=== PATIENT | female | born 1940 | race Caucasian/White ===

== ENCOUNTER → 2017-10-09 12:28 | Outpatient (CLI) | payer MEDICARE, OTHER, SELFPAY ==
--- NOTE | 2017-10-09 12:35 | US_ITS ---
US extremity RT limited CLINICAL INDICATION: ITS.REASON: RT INGUINAL PAIN ORDERING PHYSICIAN: Zachary Paniagua MD PATIENT AGE: 77 years Comparison: None FINDINGS: No mass or abnormal fluid collection is evident in the right groin. There are a few lymph nodes is measuring up to 2.4 x 0.8 cm. IMPRESSION: Lymph nodes in the right inguinal area otherwise negative inguinal ultrasound
== END ==
PROVIDERS: Family Provider Family Medicine; PCP Family Medicine; Visit Provider Family Medicine
DX: R10.31 Right lower quadrant pain (principal)
CPT/HCPCS: 76882

== ENCOUNTER → 2018-11-10 11:28 | Outpatient (CLI) | payer MEDICARE, OTHER, SELFPAY ==
[2018-11-10 13:32] LABS: Blood Urea Nitrogen 23 mg/dL (7-18); Creatinine,Serum 0.77 mg/dL (0.55-1.02); Estimated Glomerular Filt Rate 72 ml/min (>60); GFR (African American) 87 ML/MIN (>60)
--- NOTE | 2018-11-10 13:59 | CT_ITS ---
CT abdomen pelvis w con CLINICAL INDICATION: Right lower quadrant pain ITS.REASON: RT SIDE ABD PAIN ORDERING PHYSICIAN: Alma Delia Johnson APRN PATIENT AGE: 78 years COMPARISON: None TECHNIQUE: Contrast Used:75ml Optiray 350 Oral Contrast: 20ml Gastroview Axial images obtained with sagittal and coronal reformats. All CT scans at the facility use one or more dose reduction, viz: automated exposure control, ma/kV adjustment per patient size (including targeted exams where dose is matched to indication, i.e. head), or iterative reconstruction technique. FINDINGS: Atelectatic or fibrotic changes are present in the left lung base. The liver, gallbladder, spleen, adrenal glands, and kidneys have an unremarkable appearance. There is pancreatic atrophy with fatty infiltration of the pancreas No intestinal obstruction or free air is evident. No evidence of appendicitis or diverticulitis. The appendix is not included delineated however, there are no secondary signs of appendicitis. There is diverticulosis of the descending and sigmoid colon. There has been a prior hysterectomy. No pelvic mass abnormal fluid collection or focal inflammatory changes pelvis. Diffuse degenerative changes are present in the thoracic and lumbar spine with mild lumbar scoliosis convex left. IMPRESSION: No acute abdominal or pelvic findings.
[2018-11-11 14:29] LABS: Basophils % 0.4 % (0.1-2.0); Eosinophils # 0.3 K/mm3 (0.0-0.4); Eosinophils % 4.4 % (0.1-12.0); Hematocrit 43.2 % (37.0-47.0); Hemoglobin 12.9 g/dL (12.2-16.2); Lymphocytes % 15.6 % (10-50); Mean Corpuscular HGB Conc 29.9 g/dL (31.8-35.4); Mean Corpuscular Hemoglobin 29.5 pg (27.0-31.2); Mean Corpuscular Volume 98.9 fl (81-99); Mean Platelet Volume 9.8 fl (7.4-10.4); Monocytes # 0.4 K/mm3 (0.1-1.0); Monocytes % 5.6 % (1.7-9.3); Neutrophils # 4.6 K/mm3 (1.8-7.8); Neutrophils % 73.9 % (37.0-80.0); Platelet Count 271 K/mm3 (142-424); Red Blood Count 4.36 M/mm3 (4.20-5.40); Red Cell Distribution Width 13.6 % (11.5-17.5); White Blood Count 6.2 K/mm3 (4.8-10.8)
[2018-11-11 15:26] LABS: Alanine Aminotransferase 29 U/L (12-78); Albumin Level 4.4 gm/dL (3.4-5.0); Albumin/Globulin Ratio 1.6 (1.1-1.8); Alkaline Phosphatase 99 U/L (46-116); Anion Gap 17.4 mEq/L (5-15); Aspartate Amino Transferase 20 U/L (15-37); Bilirubin,Total 0.6 mg/dL (0.2-1.0); Blood Urea Nitrogen 23 mg/dL (7-18); Calcium 10.5 mg/dL (8.5-10.1); Carbon Dioxide 27 mmol/L (21.0-32.0); Chloride 104 mmol/L (98-107); Creatinine,Serum 0.83 mg/dL (0.55-1.02); Estimated Glomerular Filt Rate 66 ml/min (>60); GFR (African American) 80 ML/MIN (>60); Globulin 2.8 gm/dl (1.3-3.2); Glucose 141 mg/dL (74-106); Potassium 4.4 mmoL/L (3.5-5.1); Sodium 144 mmol/L (136-145); Total Protein,Serum 7.2 gm/dL (6.4-8.2)
== END ==
PROVIDERS: PCP Family Medicine; Visit Provider Nurse Practitioner
DX: R10.9 Unspecified abdominal pain (principal)
CPT/HCPCS: 36415; 74177; 80053; 82565; 84520; 85025; Q9967

== ENCOUNTER → 2019-05-26 10:38 | Outpatient (CLI) | payer MEDICARE, OTHER, SELFPAY ==
--- NOTE | 2019-05-26 10:45 | XR_ITS ---
PROCEDURE: XR LUMBAR SPINE MIN 4V CLINICAL INDICATION: LBP WITH RT SCIATICA COMPARISON: ABDPELW CT abdomen pelvis w con from 11/10/2018 FINDINGS: Mild lumbar scoliosis convex left. There is a rotary component along the lower lumbar spine. There is reversal of the thoracolumbar lordosis. Multi level degenerative disc disease is present from T9-S1 anterior osteophytes noted at [id number] L1 and L2 with mild wedging T12-T11 and T10 which appears chronic the not significantly changed from prior CT scan of 11/10/2018. No acute fracture or dislocation is evident. There are facet arthritic changes from L2-S1 and there is generalized vascular calcification. IMPRESSION: 1. Scoliosis with chronic multilevel lower thoracic and lumbar spondylosis as described above with facet arthritic change. 2. No acute fracture Dictated by: Tommy Garcia MD 05/26/2019 14:53 Electronically signed by Tommy Garcia MD in [place] 05/26/2019 14:53
--- NOTE | 2019-05-26 10:45 | XR_ITS ---
PROCEDURE: XR KUB CLINICAL INDICATION: DYSURIA COMPARISON: ABDPELW CT abdomen pelvis w con from 11/10/2018 FINDINGS: Nonspecific nonobstructive bowel gas pattern with a mild amount of colonic feces in the right colon and rectal region. Lumbar scoliosis with degenerative changes. No obvious renal or ureteral calculi IMPRESSION: No acute findings. Dictated by: Tommy Garcia MD 05/26/2019 14:56 Electronically signed by Tommy Garcia MD in [facility] 05/26/2019 14:56
== END ==
PROVIDERS: PCP Family Medicine; Visit Provider Nurse Practitioner
DX: M54.41 Lumbago with sciatica, right side (principal); R30.0 Dysuria
CPT/HCPCS: 72110; 74018

== ENCOUNTER → 2019-11-02 10:59 | Outpatient (CLI) | payer MEDICARE, OTHER, SELFPAY ==
--- NOTE | 2019-11-02 11:36 | ECG_ITS ---
APPROVED REPORT Exam: Resting ECG HR:73 bpm ECG Measurements Heart Rate 73 AXES VA 232 P 42 QRSd 86 QRS -26 QT 366 T 59 QTc 403 <Conclusion> Sinus rhythm with 1st degree AV block Incomplete RBBB LAD Otherwise normal ECG Electronically signed by : Torrey Lewis, 11/02/2019 17:47:06
--- NOTE | 2019-11-02 11:47 | XR_ITS ---
PROCEDURE: XR CHEST 2V CLINICAL HISTORY: COVID TESTING Shortness of air, smoker, positivecovid test previously COMPARISON: CXR CHEST(2 VIEWS-NOT PORTABLE) from 12/10/2016 FINDINGS: Borderline cardiomegaly without failure. No lobar consolidation or collapse. There are minimal fibrotic change in left lung base. The remaining lungs are clear. Lumbar scoliosis convex left with degenerative changes of the lumbar spine IMPRESSION: No change with no acute finding Dictated by: Tommy Garcia MD 11/03/2019 16:42 Electronically signed by Tommy Garcia MD in [facility] 11/03/2019 16:42
[2019-11-02 11:56] LABS: Adenovirus,PCR Not Detected (NotDetected); Bordetella Pertussis Not Detected (NotDetected); Chlamydophila Pneumoniae, PCR Not Detected (NotDetected); Coronavirus 229E Not Detected (NotDetected); Coronavirus NL63 Not Detected (NotDetected); Coronavirus OC43 Not Detected (NotDetected); Coronovirus HKU1,PCR Not Detected (NotDetected); Human Metapneumovirus Not Detected (NotDetected); Influenza A, PCR Not Detected (NotDetected); Influenza AH1, 2009 Not Detected (NotDetected); Influenza AH1, PCR Not Detected (NotDetected); Influenza AH3,PCR Not Detected (NotDetected); Influenza B, PCR Not Detected (NotDetected); Mycoplasma Pneumoniae, PCR Not Detected (NotDetected); Parainfluenza 1, PCR Not Detected (NotDetected); Parainfluenza 2, PCR Not Detected (NotDetected); Parainfluenza 3, PCR Not Detected (NotDetected); Parainfluenza 4, PCR Not Detected (NotDetected); Respiratory Syncytial Virus Not Detected (NotDetected); Rhinovirus/Enterovirus Not Detected (NotDetected)
[2019-11-02 12:27] LABS: Basophils % 0.6 % (0.1-2.0); Eosinophils # 0.1 K/mm3 (0.0-0.4); Eosinophils % 2.2 % (0.1-12.0); Hematocrit 37.5 % (37.0-47.0); Hemoglobin 12.8 g/dL (12.2-16.2); Lymphocytes # 0.9 K/mm3 (0.7-4.5); Lymphocytes % 18.1 % (10-50); Mean Corpuscular HGB Conc 34.1 g/dL (31.8-35.4); Mean Corpuscular Volume 93.9 fl (81-99); Mean Platelet Volume 7.6 fl (7.4-10.4); Monocytes # 0.3 K/mm3 (0.1-1.0); Neutrophils # 3.5 K/mm3 (1.8-7.8); Neutrophils % 72.1 % (37.0-80.0); Platelet Count 250 K/mm3 (142-424); Red Cell Distribution Width 13.7 % (11.5-17.5); White Blood Count 4.9 K/mm3 (4.8-10.8)
== END ==
PROVIDERS: PCP Nurse Practitioner; Visit Provider Nurse Practitioner
DX: Z03.818 Encounter for observation for suspected exposure to other biological agents ruled out (principal)
CPT/HCPCS: 36415; 71046; 85025; 87486; 87581; 87633; 87798; 93005

== ENCOUNTER → 2019-12-28 10:08 | Outpatient (CLI) | payer MEDICARE, OTHER, SELFPAY ==
--- NOTE | 2019-12-28 10:20 | XR_ITS ---
PROCEDURE: XR CHEST PORTABLE CLINICAL HISTORY: COVID TESTING COMPARISON: CR CXR CHEST(2 VIEWS-NOT PORTABLE) from 12/10/2016 CR XR CHEST 2V from 11/02/2019 FINDINGS: The cardiomediastinal silhouette and pulmonary vascularity are within normal limits. The lungs are clear without infiltrates, suspicious nodules, or pleural effusions. There is minimal fibrotic change in the left lung base. Upper thoracic curvature convex left and lower thoracic curvature convex right IMPRESSION: No acute findings. Dictated by: Tommy Garcia MD 12/28/2019 10:51 Tommy Garcia MD in [facility] 12/28/2019 10:51
[2019-12-28 13:37] LABS: Basophils % 0.5 % (0.1-2.0); Eosinophils # 0.2 K/mm3 (0.0-0.4); Eosinophils % 3.9 % (0.1-12.0); Hematocrit 38.3 % (37.0-47.0); Hemoglobin 12.8 g/dL (12.2-16.2); Lymphocytes # 0.9 K/mm3 (0.7-4.5); Mean Corpuscular HGB Conc 33.5 g/dL (31.8-35.4); Mean Corpuscular Hemoglobin 32.5 pg (27.0-31.2); Mean Corpuscular Volume 97.3 fl (81-99); Mean Platelet Volume 8.2 fl (7.4-10.4); Monocytes # 0.3 K/mm3 (0.1-1.0); Monocytes % 7.5 % (1.7-9.3); Neutrophils # 3.1 K/mm3 (1.8-7.8); Neutrophils % 68.2 % (37.0-80.0); Platelet Count 265 K/mm3 (142-424); Red Blood Count 3.94 M/mm3 (4.20-5.40); Red Cell Distribution Width 13.6 % (11.5-17.5); White Blood Count 4.5 K/mm3 (4.8-10.8)
[2019-12-28 13:44] LABS: Alanine Aminotransferase 19 U/L (12-78); Albumin Level 4.5 g/dl (3.5-5.0); Albumin/Globulin Ratio 1.8 (1.1-1.8); Alkaline Phosphatase 77 U/L (38-126); Aspartate Amino Transferase 35 U/L (14-36); Bilirubin,Total 0.8 mg/dl (0.2-1.3); Blood Urea Nitrogen 19 mg/dl (7-17); Calcium 10.2 mg/dl (8.4-10.2); Carbon Dioxide 29 mmol/L (22.0-30.0); Chloride 101 mmol/L (98-107); Estimated Glomerular Filt Rate 80 ml/min (>60); GFR (African American) 97 ML/MIN (>60); Globulin 2.5 g/dL (1.3-3.2); Glucose 145 mg/dl (74-100); Sodium 139 mmol/L (136-145)
[2019-12-29 13:17] LABS: Covid-19 Nasal PCR Sendout Lex Not Detected
== END ==
PROVIDERS: PCP Family Medicine; Visit Provider Nurse Practitioner
DX: Z03.818 Encounter for observation for suspected exposure to other biological agents ruled out (principal)
CPT/HCPCS: 36415; 71045; 80053; 85025; 93225; 93226; U0004

== ENCOUNTER → 2020-01-29 12:49 | Outpatient (CLI) | payer MEDICARE, OTHER, SELFPAY ==
[2020-01-29 13:36] LABS: Basophils % 0.3 % (0.1-2.0); Eosinophils # 0.2 K/mm3 (0.0-0.4); Hematocrit 39.3 % (37.0-47.0); Hemoglobin 13.1 g/dL (12.2-16.2); Lymphocytes # 1.2 K/mm3 (0.7-4.5); Lymphocytes % 21.6 % (10-50); Mean Corpuscular HGB Conc 33.4 g/dL (31.8-35.4); Mean Corpuscular Hemoglobin 32.2 pg (27.0-31.2); Mean Corpuscular Volume 96.2 fl (81-99); Mean Platelet Volume 7.3 fl (7.4-10.4); Monocytes # 0.5 K/mm3 (0.1-1.0); Monocytes % 7.9 % (1.7-9.3); Neutrophils # 3.8 K/mm3 (1.8-7.8); Neutrophils % 67.1 % (37.0-80.0); Platelet Count 290 K/mm3 (142-424); Red Blood Count 4.09 M/mm3 (4.20-5.40); Red Cell Distribution Width 13.5 % (11.5-17.5); White Blood Count 5.7 K/mm3 (4.8-10.8)
[2020-01-29 14:24] LABS: Strep Scrn Group A (Rapid) Negative (Negative)
== END ==
PROVIDERS: PCP Nurse Practitioner; Visit Provider Nurse Practitioner
DX: Z03.818 Encounter for observation for suspected exposure to other biological agents ruled out (principal)
CPT/HCPCS: 36415; 85025; 87430; U0003

== ENCOUNTER 2020-07-08 11:32 | Emergency (ER) | payer MEDICARE, OTHER, SELFPAY ==
[2020-07-08 11:34] VITALS: BP 199/96; PULSE 81; RESP 15; TEMP 36.5; O2SAT 96; BMI 34.0
--- NOTE | 2020-07-08 11:40 | ECG_ITS ---
APPROVED REPORT Exam: Resting ECG HR:82 bpm ECG Measurements Heart Rate 82 AXES ND 256 P 36 QRSd 92 QRS -14 QT 358 T 78 QTc 418 Conclusion Sinus rhythm with 1st degree AV block ST abnormality, unchanged since 10/2019 Abnormal ECG Electronically signed by : Ayden Rubio, 07/09/2020 16:31:47
--- NOTE | 2020-07-08 11:48 | HMH.EDGENADL ---
ED Disposition Clinical Impression: Chest pain, precordial, Elevated troponin Disposition: Xfer Short-Term Hosp Condition on Discharge: Fair Referrals: Fadi Christy MD [Primary Care Provider] - Forms: Transfer Record - ED - Critical Care Critical Care Time: No Attestation: On 07/08/20, the high probability of a clinically significant, sudden or life threatening deterioration of the following system(s) required my full and direct attention, intervention and personal management. The time I documented below is in addition to time spent performing reported procedures but includes the following listed in this critical care notation. Medical Decision Making - Medical Records Medical records reviewed: Yes: I reviewed the patient's medical records. MR Comment: Prior Holter monitor result reviewed. See below. - Olu Inquiry Pt receiving controlled substance: No Vital Signs: 07/08/20 11:34 07/08/20 13:04 07/08/20 14:30 Temperature 97.7 F Temperature Source Oral Pulse Rate Pulse Rate [Left Radial] 81 83 66 Respiratory Rate 15 14 Blood Pressure Blood Pressure [Right Arm] 199/96 H 176/112 H 188/96 H Blood Pressure Mean [Right Arm] 130 133 126 Blood Pressure Source [Right Arm] Automatic Cuff Automatic Cuff Blood Pressure Position Blood Pressure Position [Right Arm] Sitting Sitting 02 Sat by Pulse Oximetry 96 97 Oxygen Delivery Method Room Air Room Air 07/08/20 15:15 07/08/20 15:17 Temperature 97.7 F Temperature Source Pulse Rate 66 Pulse Rate [Left Radial] Respiratory Rate 14 Blood Pressure 188/96 H Blood Pressure [Right Arm] 175/94 H Blood Pressure Mean [Right Arm] 121 Blood Pressure Source [Right Arm] Automatic Cuff Blood Pressure Position Sitting Blood Pressure Position [Right Arm] Sitting 02 Sat by Pulse Oximetry Oxygen Delivery Method Room Air - Lab Data Lab Results 07/08/20 11:45: WBC 6.6, RBC 4.11 L, Hgb 12.8, Hct 39.2, MCV 95.5, MCH 31.0, MCHC 32.5, RDW 13.4, Plt Count 240, MPV 7.7, Neut % (Auto) 81.9 H, Lymph % (Auto) 11.1, Owsley % (Auto) 4.5, Eos % (Auto) 2.0, Baso % (Auto) 0.4, Neut # (Auto) 5.4, Lymph # (Auto) 0.7, Owsley # (Auto) 0.3, Eos # (Auto) 0.1, Baso # (Auto) 0.0 07/08/20 11:45: Sodium 141, Potassium 4.2, Chloride 105, Carbon Dioxide 25, Anion Gap 15.2 H, BUN 19 H, Creatinine 0.70, Estimated Creat Clear 59, Estimated GFR 80, Est GFR ( Amer) 97, Glucose 200 H, Calcium 10.4 H, Total Bilirubin 0.5, AST 28, ALT 20, Alkaline Phosphatase 68, Troponin I 0.13 H, NT-Pro-B Natriuret Pep 302, Total Protein 7.6, Albumin 4.8, Globulin 2.8, Albumin/Globulin Ratio 1.7 07/08/20 14:45: Troponin I 0.44 H Result diagrams: 07/08/20 11:45 07/08/20 11:45 Orders (Tests/Meds): ED MEDICATIONS Discontinued Medications Generic Name Dose Route Start Last Admin Trade Name Freq PRN Reason Stop Dose Admin Aspirin 243 mg 07/08/20 12:55 07/08/20 13:00 Aspirin 81mg Chewable Tablet PO 07/08/20 12:56 243 mg ONCE ONE Administration Nitroglycerin 1 gm 07/08/20 13:00 07/08/20 13:00 Nitroglycerin 1 Gm Ointment TD 08/07/20 12:59 1 gm Q6H TRACY Administration - Radiology Data #1 Image(s): Chest Image Reviewed: Yes I reviewed the patient's radiology image, Yes I have reviewed radiologist's interpretation Preliminary Findings: Normal/NAD - ECG Data Tracing #1 EKG interpreted by Franki Link MD: Rhythm: sinus Rate: 82 Ord: normal Ectopy: none Conduction: First-degree AV block ST Segment Changes: none T Wave Changes: none Q Waves: none No evidence of acute ischemia or injury Prior electrocardiagrams reviewed. No change from prior tracings. - Physician Consults Physician Consulted: Dr. Salgado - hospitalist at [facility] Time: 14:49 Reason -: Transfer to another facilty Comment/Response: accepts patient - PARIS Score for Non-Stemi Age of Patient: 80-89 years old Heart Rate: 70-89 bpm Systolic Blood P
--- NOTE | 2020-07-08 11:54 | XR_ITS ---
PROCEDURE: XR CHEST 2V CLINICAL HISTORY: soa Shortness of air COMPARISON: CR CXR CHEST(2 VIEWS-NOT PORTABLE) from 12/10/2016 CR XR CHEST 2V from 11/02/2019 CR XR CHEST PORTABLE from 12/28/2019 FINDINGS: The cardiomediastinal silhouette and pulmonary vascularity are within normal limits. The lungs are clear without infiltrates, suspicious nodules, or pleural effusions. Dextroscoliosis and kyphosis of the thoracic spine. Mild chronic wedging T12 and T11 IMPRESSION: No acute findings. Dictated by: Tommy Garcia MD 07/08/2020 13:03 Tommy Garcia MD in [place] 07/08/2020 13:03
[2020-07-08 12:03] LABS: Basophils % 0.4 % (0.1-2.0); Eosinophils # 0.1 K/mm3 (0.0-0.4); Hematocrit 39.2 % (37.0-47.0); Hemoglobin 12.8 g/dL (12.2-16.2); Lymphocytes # 0.7 K/mm3 (0.7-4.5); Lymphocytes % 11.1 % (10-50); Mean Corpuscular HGB Conc 32.5 g/dL (31.8-35.4); Mean Corpuscular Volume 95.5 fl (81-99); Mean Platelet Volume 7.7 fl (7.4-10.4); Monocytes # 0.3 K/mm3 (0.1-1.0); Monocytes % 4.5 % (1.7-9.3); Neutrophils # 5.4 K/mm3 (1.8-7.8); Neutrophils % 81.9 % (37.0-80.0); Platelet Count 240 K/mm3 (142-424); Red Blood Count 4.11 M/mm3 (4.20-5.40); Red Cell Distribution Width 13.4 % (11.5-17.5); White Blood Count 6.6 K/mm3 (4.8-10.8)
[2020-07-08 12:08] LABS: Alanine Aminotransferase 20 U/L (12-78); Albumin Level 4.8 g/dl (3.5-5.0); Albumin/Globulin Ratio 1.7 (1.1-1.8); Alkaline Phosphatase 68 U/L (38-126); Anion Gap 15.2 mEq/L (5-15); Aspartate Amino Transferase 28 U/L (14-36); Bilirubin,Total 0.5 mg/dl (0.2-1.3); Blood Urea Nitrogen 19 mg/dl (7-17); Calcium 10.4 mg/dl (8.4-10.2); Carbon Dioxide 25 mmol/L (22.0-30.0); Chloride 105 mmol/L (98-107); Creatinine Clearance Estimated 59 mL/min (50-200); Estimated Glomerular Filt Rate 80 ml/min (>60); GFR (African American) 97 ML/MIN (>60); Globulin 2.8 g/dL (1.3-3.2); Glucose 200 mg/dl (74-100); Potassium 4.2 mmoL/L (3.5-5.1); Sodium 141 mmol/L (136-145); Total Protein,Serum 7.6 g/dl (6.3-8.2)
[2020-07-08 12:20] LABS: NT Pro Brain Natriuretic Pep. 302 pg/mL (0-450); Troponin I 0.13 ng/ml (0.00-0.034)
--- NOTE | 2020-07-08 12:20 | PC.NURSE ---
technical manager called me into pt room, pt had an episode she would not speak felt strange, pt said she had this feeling come over her, and she felt limp and couldnt speak, lead radiologic technologist said it didnt last long. pt hooked up to monitor and bp checked pt given call light in case she felt odd agaain.
[2020-07-08 13:04] VITALS: BP 176/112; PULSE 83
--- NOTE | 2020-07-08 13:33 | PC.NURSE ---
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
[2020-07-08 14:30] VITALS: BP 188/96; PULSE 66; RESP 14; O2SAT 97
--- NOTE | 2020-07-08 14:38 | PC.NURSE ---
spoke with logistic transfer they ar to see where they can place pt and give us a call back.
--- NOTE | 2020-07-08 14:47 | PC.NURSE ---
Dr Link speaking with hospitalist from [facility].
[2020-07-08 15:14] LABS: Troponin I 0.44 ng/ml (0.00-0.034)
[2020-07-08 15:15] VITALS: BP 188/96; PULSE 66; RESP 14; TEMP 36.5; O2SAT 97
--- NOTE | 2020-07-08 15:15 | PC.NURSE ---
wayne here to get pt
[2020-07-08 15:17] VITALS: BP 175/94
--- NOTE | 2020-07-08 15:30 | PC.NURSE ---
Report given to Becca Bhagat RN at [place]
== END 2020-07-08 15:20 | disposition short-term general hospital (02) ==
PROVIDERS: Emergency Provider Emergency Medicine; PCP Family Medicine
DX: Z20.822 Contact with and (suspected) exposure to COVID-19 (principal); R07.2 Precordial pain; I48.91 Unspecified atrial fibrillation; E11.9 Type 2 diabetes mellitus without complications; Z88.5 Allergy status to narcotic agent; Z79.899 Other long term (current) drug therapy
CPT/HCPCS: 71046; 80053; 83880; 84484; 85025; 93005; 99284; U0003

== ENCOUNTER → 2021-02-22 12:02 | Outpatient (CLI) | payer MEDICARE, OTHER, SELFPAY ==
[2021-02-22 13:09] LABS: Adenovirus,PCR Not Detected (NotDetected); Bordetella Pertussis Not Detected (NotDetected); Chlamydophila Pneumoniae, PCR Not Detected (NotDetected); Coronavirus 19, PCR Not Detected (NotDetected); Coronavirus 229E Not Detected (NotDetected); Coronavirus NL63 Not Detected (NotDetected); Coronavirus OC43 Not Detected (NotDetected); Coronovirus HKU1,PCR Not Detected (NotDetected); Human Metapneumovirus Not Detected (NotDetected); Influenza A, PCR Not Detected (NotDetected); Influenza AH1, 2009 Not Detected (NotDetected); Influenza AH1, PCR Not Detected (NotDetected); Influenza AH3,PCR Not Detected (NotDetected); Influenza B, PCR Not Detected (NotDetected); Mycoplasma Pneumoniae, PCR Not Detected (NotDetected); Parainfluenza 1, PCR Not Detected (NotDetected); Parainfluenza 2, PCR Not Detected (NotDetected); Parainfluenza 3, PCR Not Detected (NotDetected); Parainfluenza 4, PCR Not Detected (NotDetected); Respiratory Syncytial Virus Not Detected (NotDetected); Rhinovirus/Enterovirus Not Detected (NotDetected)
[2021-02-22 13:14] LABS: Basophils % 0.6 % (0.1-2.0); Eosinophils # 0.1 K/mm3 (0.0-0.4); Eosinophils % 2.3 % (0.1-12.0); Hematocrit 40.6 % (37.0-47.0); Hemoglobin 12.5 g/dL (12.2-16.2); Lymphocytes # 0.8 K/mm3 (0.7-4.5); Lymphocytes % 15.1 % (10-50); Mean Corpuscular HGB Conc 30.9 g/dL (31.8-35.4); Mean Corpuscular Hemoglobin 30.9 pg (27.0-31.2); Mean Platelet Volume 7.6 fl (7.4-10.4); Monocytes # 0.5 K/mm3 (0.1-1.0); Monocytes % 9.8 % (1.7-9.3); Neutrophils # 3.7 K/mm3 (1.8-7.8); Neutrophils % 72.2 % (37.0-80.0); Platelet Count 286 K/mm3 (142-424); Red Blood Count 4.06 M/mm3 (4.20-5.40); White Blood Count 5.1 K/mm3 (4.8-10.8)
[2021-02-22 19:06] LABS: Strep Scrn Group A (Rapid) Negative (Negative)
== END ==
PROVIDERS: PCP Nurse Practitioner; Visit Provider Nurse Practitioner
DX: Z20.822 Contact with and (suspected) exposure to COVID-19 (principal)
CPT/HCPCS: 36415; 85025; 87430; 87581; 87632; 87798; C9803; U0003; U0005

== ENCOUNTER 2021-08-22 22:11 | Emergency (ER) | payer MEDICARE, OTHER, SELFPAY ==
[2021-08-22 22:13] VITALS: BP 156/77; PULSE 65; RESP 18; TEMP 36.7; O2SAT 97; BMI 31.1
--- NOTE | 2021-08-22 22:22 | XR_ITS ---
PROCEDURE INFORMATION: Exam: XR Right Hip Exam date and time: 08/22/2021 10:40 PM Age: 80 years old Clinical indication: Hip pain; Right hip; Additional info: Fall TECHNIQUE: Imaging protocol: XR Right hip. Views: 2 or 3 views hip with pelvis when performed. COMPARISON: ABDPELW CT abdomen pelvis w con 11/10/2018 2:15 PM FINDINGS: Bones/joints: Unremarkable. No acute fracture. Soft tissues: Unremarkable. IMPRESSION: No acute findings.
--- NOTE | 2021-08-22 22:47 | PC.NURSE ---
Pt gone to RAD
--- NOTE | 2021-08-22 22:52 | XR_ITS ---
PROCEDURE INFORMATION: Exam: XR Right Tibia and Fibula Exam date and time: 08/22/2021 10:46 PM Age: 80 years old Clinical indication: Pain; Patient HX: Per patient, HX of multiple fractures to right lower leg; Additional info: Fall TECHNIQUE: Imaging protocol: XR Right tibia and fibula. Views: 2 views. COMPARISON: EXTRL US extremity RT limited 10/09/2017 12:56 PM FINDINGS: Bones/joints: Tricompartmental joint space narrowing and osteophyte formation about the knee joint. No acute fracture or dislocation. Soft tissues: Normal. IMPRESSION: No acute findings.
--- NOTE | 2021-08-22 23:01 | PC.NURSE ---
Pt back from RAD
--- NOTE | 2021-08-22 23:24 | HMH.EDFALL ---
ED Disposition Clinical Impression: Contusion of hip, right Qualifiers: Encounter type: initial encounter Qualified Code(s): S70.01XA - Contusion of right hip, initial encounter Lower leg injury Qualifiers: Encounter type: initial encounter Laterality: right Qualified Code(s): S89.91XA - Unspecified injury of right lower leg, initial encounter Disposition: Home, Self-Care Condition on Discharge: Good Instructions: DI for Hip Pain Additional Instructions: see pcp for follow up Referrals: Fadi Christy MD [Primary Care Provider] - - Critical Care Critical Care Time: No Attestation: On 08/22/21, the high probability of a clinically significant, sudden or life threatening deterioration of the following system(s) required my full and direct attention, intervention and personal management. The time I documented below is in addition to time spent performing reported procedures but includes the following listed in this critical care notation. Medical Decision Making - Medical Records Medical records reviewed: Yes: I reviewed the patient's medical records. - Olu Inquiry Pt receiving controlled substance: No Vital Signs: 08/22/21 22:13 Temperature 98.1 F Temperature Source Oral Pulse Rate [Right] 65 Respiratory Rate 18 Blood Pressure [Right Arm] 156/77 H Blood Pressure Mean [Right Arm] 103 02 Sat by Pulse Oximetry 97 - Lab Data Lab results reviewed: Yes: I reviewed the patient's lab results. - Radiology Data #1 Image(s): Pelvis, Hip, Tib/Fib Image Reviewed: Yes I have reviewed radiologist's interpretation Preliminary Findings: No Fracture Seen Medical Decision Narrative: stable exam and neg xrays and will use tyenol as needed Fall HPI - General Chief Complaint: Fall Stated Complaint: AO 08/22@2200 fell from chair R hip Time Seen by Provider: 08/22/21 23:24 Mode of Arrival: Wheelchair Source of Information: Patient, Medical Record Limitations: No Limitations Description of Symptoms (Recalled from ER Triage Doc. by RN): pt states hit toe and fell and c/o rt hip pain. pt denies loc - History of Present Illness HPI Narrative: trip fall upstairs in husbands room with rt lower leg and rt hip pain complaint: fall Onset (ago): hour(s) Fall from: standing Fall witnessed: yes, by family Place fall occurred: other (pt room) Loss of consciousness: none Prolonged down time: no Context: tripped/slipped Location of injury - extremities: Right: thigh, lower leg Severity: moderate Associated symptoms (after fall): denies - Related Data Home Medications Medication Instructions Recorded Confirmed Acetaminophen [Tylenol 500mg 500 mg PO DAILY 07/08/20 07/08/20 tablet] Amlodipine Besylate [Amlodipine 10 mg PO DAILY 07/08/20 07/08/20 10mg Tab] Apixaban [Eliquis 5mg Tablet] 5 mg PO BID 07/08/20 07/08/20 Ascorbic Acid [Vitamin C] 1,000 mg PO DAILY 07/08/20 07/08/20 Aspirin 81 mg PO DAILY 07/08/20 07/08/20 Calcium Carbonate [Calcium] 600 mg PO DAILY 07/08/20 07/08/20 Docusate Sodium [Stool Softener] 100 mg PO DAILY 07/08/20 07/08/20 Ergocalciferol (Vitamin D2) 50 mcg PO DAILY 07/08/20 07/08/20 [Vitamin D2] Famotidine 10 mg PO DAILY 07/08/20 07/08/20 Furosemide [Furosemide 40MG tAB*] 40 mg PO DAILY 07/08/20 07/08/20 Lisinopril/Hydrochlorothiazide 1 each PO DAILY 07/08/20 07/08/20 [Lisinopril-Hctz 10-12.5 mg Tab] Metformin HCl [Fortamet] 500 mg PO DAILY 07/08/20 07/08/20 Metoprolol Succinate [Kapspargo 25 mg PO DAILY 07/08/20 07/08/20 Sprinkle] Multivit-Min/FA/Lycopen/Lutein 1 each PO DAILY 07/08/20 07/08/20 [Centrum Silver Tablet] Potassium Gluconate [Potassium] 99 mg PO DAILY 07/08/20 07/08/20 Simvastatin 10 mg PO DAILY 07/08/20 07/08/20 Allergies Allergy/AdvReac Type Severity Reaction Status Date / Time codeine Allergy Verified 07/08/20 11:53 [facility] History - Hepatitis A Screen Drug use history?: No High risk sexual behaviors?: No History of sexual
[2021-08-22 23:27] VITALS: BP 122/75; PULSE 78; RESP 17; TEMP 36.9; O2SAT 98
== END 2021-08-22 23:44 | disposition home or self-care (01) ==
PROVIDERS: Emergency Provider Emergency Medicine; PCP Family Medicine
DX: S89.91XA Unspecified injury of right lower leg, initial encounter (principal); M25.551 Pain in right hip; Z79.1 Long term (current) use of non-steroidal anti-inflammatories (NSAID); Z79.82 Long term (current) use of aspirin; Z79.84 Long term (current) use of oral hypoglycemic drugs; Z79.899 Other long term (current) drug therapy; Z88.5 Allergy status to narcotic agent; W18.09XA Striking against other object with subsequent fall, initial encounter
CPT/HCPCS: 73502; 73590; 99283

== ENCOUNTER → 2022-05-03 11:02 | Outpatient (CLI) | payer MEDICARE, SELFPAY ==
[2022-05-04 10:56] LABS: Hemoglobin A1C 6.2 % (4.0-6.0)
[2022-05-04 10:57] LABS: Thyroid Stimulating Hormone 0.78 uIU/mL (0.465-4.68)
[2022-05-04 16:02] LABS: Chol/HDL Ratio 2.3 (1-3.5); Cholesterol 135 mg/dl (140-200); HDL Cholesterol 60 mg/dl (40-60); Triglycerides 106 mg/dl (30-150); VLDL Cholesterol 21 mg/dL (0-40)
[2022-05-04 16:13] LABS: Direct LDL Cholesterol 33.74 mg/dL (100-129)
== END ==
PROVIDERS: PCP Nurse Practitioner; Visit Provider Nurse Practitioner
DX: I48.91 Unspecified atrial fibrillation; I50.9 Heart failure, unspecified; E11.9 Type 2 diabetes mellitus without complications; E78.5 Hyperlipidemia, unspecified; I11.0 Hypertensive heart disease with heart failure
CPT/HCPCS: 80061; 83036; 84443

== ENCOUNTER 2022-05-04 09:39 | Emergency (ER) | payer MEDICARE, SELFPAY ==
[2022-05-04 10:03] VITALS: BP 129/77; PULSE 91; RESP 18; TEMP 36.4; O2SAT 97; BMI 29.0
--- NOTE | 2022-05-04 10:20 | XR_ITS ---
FINAL REPORT CLINICAL HISTORY: f/u pleural effusions COMPARISON: None FINDINGS: The heart size is normal. The mediastinum is normal. There is no focal infiltrate or edema. There are no pleural effusions. There is no pneumothorax. There is no osseous abnormality. IMPRESSION: No acute cardiopulmonary process Reviewed, Interpreted and Dictated by Renetta Meza MD Transcribed by Freida Barton Authenticated and [facility]
--- NOTE | 2022-05-04 10:20 | CT_ITS ---
FINAL REPORT TECHNIQUE: After the administration of IV contrast, axial images through the abdomen and pelvis was performed by computed tomography. Oral contrast was given. This study was performed with techniques to keep radiation doses as low as reasonably achievable (ALARA). Individualized dose reduction techniques using automated exposure control or adjustment of mA and/or kV according to the patient's size were employed. CLINICAL HISTORY: rectal bleeding COMPARISON: 11/10/2018 FINDINGS: Abdomen: Lung bases are clear. Liver has an unremarkable CT appearance. The spleen, pancreas and adrenal glands are unremarkable. Kidneys show no mass or obstruction. The gallbladder is unremarkable. No bowel obstruction or fluid collection is seen. Pelvis: The appendix is not visualized, possibly removed at time of hysterectomy. There is moderate sigmoid diverticulosis. No fluid collection or adenopathy is seen. IMPRESSION: No acute findings. Reviewed, Interpreted and Dictated by Renetta Meza MD Transcribed by Chandni Garrido Authenticated and [facility]
--- NOTE | 2022-05-04 10:22 | HMH.EDGENADL ---
Discharge Plan Disposition Patient Disposition: Home, Self-Care Condition: Good Prescriptions Prescriptions: No Action lisinopril-hydrochlorothiazide 20-12.5 mg tablet 1 tab PO DAILY meclizine 25 mg tablet 25 mg PO TID amoxicillin-pot clavulanate 875-125 mg tablet 1 tab PO BID cholecalciferol (vitamin D3) 25 mcg (1,000 unit) tablet 25 mcg PO DAILY amlodipine 5 mg tablet 2.5 mg PO DAILY metoprolol succinate 25 mg tablet extended release 24 hr 25 mg PO DAILY metformin 500 mg tablet 500 mg PO DAILY Qty: 90 3RF sertraline 50 mg tablet 50 mg PO DAILY Qty: 30 2RF furosemide 40 MG tablet 40 mg PO DAILY ascorbic acid (vitamin C) 1,000 MG tablet 1,000 mg PO DAILY famotidine 10 MG tablet 10 mg PO DAILY simvastatin 10 MG tablet 10 mg PO DAILY acetaminophen 500 MG tablet 500 mg PO DAILY calcium carbonate 600 MG tablet 600 mg PO DAILY docusate sodium 100 MG capsule 100 mg PO DAILY aspirin 81 MG tablet,chewable 81 mg PO DAILY yyvibrig-qfi-TD-lycopen-lutein 1 EACH tablet 1 each PO DAILY potassium gluconate 99 MG tablet 99 mg PO DAILY apixaban 5 MG tablet 5 mg PO BID Referrals Follow up/Referrals: Fadi Christy MD [Primary Care Provider] - See instructions Activity Restrictions/Add. Instructions Additional Instructions/Restrictions: Do not take any blood pressure medication or diuretics today - Do not take amlodipine, furosemide, lisinopril-hydrochlorothiazide, or metoprolol today. Take your blood pressure this afternoon and tonight and tomorrow morning. Call Dr. Christy in his office tomorrow. Return to the emergency department for any worsening. Clinical Impressions Clinical Impression: Bright red stool Discharge ED Provider: Franki Link General Adult HPI General Chief complaint: Urogenital-Female Stated complaint: bleeding from rectum Time Seen by Provider: 05/04/22 10:08 History of Present Illness HPI narrative: Complains of rectal bleeding. States that during the night last night she had fecal incontinence, which she has never had before. She says it was dark and somewhat watery. This morning she had a large bowel movement that was filled with bright red blood, she thinks up to a couple of blood. She says that she has some abdominal growling last night and took a chewable antacid. No significant pain at present. No vomiting or hematemesis. No fever. No history of gastrointestinal bleeding. She is on Eliquis for atrial fibrillation. She takes low-dose aspirin daily. She is not on any other NSAIDs. She is a nondrinker. She has never had an EGD or colonoscopy. She says she was admitted on Saturday night and [facility], going there by ambulance for vertigo. She says she was also discovered to have fluid around the lungs, not in the lungs . Which sounds as if she had pleural effusions. She says that they gave her Lasix to get the fluid off. She was discharged on meclizine and an antibiotic for sinus infection. 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 Quinteros here. Related Data Home Medications Medication Instructions Recorded Confirmed acetaminophen 500 mg tablet 500 mg PO DAILY Supplement 07/08/20 05/03/22 apixaban 5 mg tablet 5 mg PO BID Blood thinner 07/08/20 05/03/22 ascorbic acid (vitamin C) 1,000 mg 1,000 mg PO DAILY Supplement 07/08/20 05/03/22 tablet aspirin 81 mg chewable tablet 81 mg PO DAILY Supplement 07/08/20 05/03/22 calcium carbonate 600 mg calcium 600 mg PO DAILY Supplement 07/08/20 05/03/22 (1,500 mg) tablet docusate sodium 100 mg capsule 100 mg PO DAILY constipation 07/08/20 05/03/22 famotidine 10 mg tablet 10 mg PO DAILY stomach 07/08/20 05/03/22 furosemide 40 mg tablet 40 mg PO DAILY Edema 07/08/20 05/03/22 ofsmubmn-mxb-jibmz acid 0.4 1 each PO DAILY Supp
[2022-05-04 10:30] VITALS: BP 109/69; PULSE 83; RESP 16; O2SAT 97
--- NOTE | 2022-05-04 10:35 | PC.NURSE ---
HORTENSIA mann @ [facility] for chest x-ray
[2022-05-04 10:46] LABS: Occult Blood,Stool Negative (Negative)
[2022-05-04 10:48] LABS: Alanine Aminotransferase 22 U/L (12-78); Albumin Level 4.7 g/dl (3.5-5.0); Albumin/Globulin Ratio 1.9 (1.1-1.8); Alkaline Phosphatase 84 U/L (38-126); Anion Gap 13.7 mEq/L (5-15); Aspartate Amino Transferase 33 U/L (14-36); Blood Urea Nitrogen 32 mg/dl (7-17); Calcium 9.8 mg/dl (8.4-10.2); Carbon Dioxide 28 mmol/L (22.0-30.0); Chloride 100 mmol/L (98-107); Creatinine Clearance Estimated 2 mL/min (50-200); Estimated Glomerular Filt Rate 60 ml/min (>60); GFR (African American) 72 ML/MIN (>60); Globulin 2.5 g/dL (1.3-3.2); Glucose 163 mg/dl (74-100); Potassium 3.7 mmoL/L (3.5-5.1); Sodium 138 mmol/L (136-145); Total Protein,Serum 7.2 g/dl (6.3-8.2)
[2022-05-04 10:52] LABS: Basophils % 0.7 % (0.1-2.0); Eosinophils # 0.2 K/mm3 (0.0-0.4); Eosinophils % 2.9 % (0.1-12.0); Hematocrit 42.7 % (37.0-47.0); Hemoglobin 13.6 g/dL (12.2-16.2); Lymphocytes # 0.8 K/mm3 (0.7-4.5); Lymphocytes % 12.3 % (10-50); Mean Corpuscular HGB Conc 31.8 g/dL (31.8-35.4); Mean Corpuscular Hemoglobin 30.4 pg (27.0-31.2); Mean Corpuscular Volume 95.4 fl (81-99); Mean Platelet Volume 8.4 fl (7.4-10.4); Monocytes # 0.4 K/mm3 (0.1-1.0); Monocytes % 6.1 % (1.7-9.3); Neutrophils # 4.8 K/mm3 (1.8-7.8); Platelet Count 320 K/mm3 (142-424); Red Blood Count 4.48 M/mm3 (4.20-5.40); Red Cell Distribution Width 13.7 % (11.5-17.5); White Blood Count 6.1 K/mm3 (4.8-10.8)
--- NOTE | 2022-05-04 10:53 | PC.NURSE ---
Patient going to CT via wheelchair
[2022-05-04 10:57] LABS: NT Pro Brain Natriuretic Pep. 409 pg/mL (0-450)
[2022-05-04 10:58] LABS: Activated Partial Thrombo Time 27.7 seconds (22.8-30.6); INR 1.05 (0.9-1.1); Prothrombin Time 11.3 seconds (10.1-12.5)
[2022-05-04 11:05] LABS: Troponin I < 0.01 ng/ml (0.00-0.034)
--- NOTE | 2022-05-04 11:18 | ECG_ITS ---
APPROVED REPORT Exam: Resting ECG HR:86 bpm ECG Measurements Heart Rate 86 AXES QRSd 100 QRS 45 QT 361 T -1 QTc 405 Conclusion ATRIAL FIBRILLATION LOW QRS VOLTAGE IN PRECORDIAL LEADS [QRS DEFLECTION < 1.0 mV IN CHEST LEADS] INCOMPLETE RIGHT BUNDLE BRANCH BLOCK [90+ ms QRS DURATION, TERMINAL R IN V1/V2, 40+ ms S IN I/aVL/V4/V5/V6] ABNORMAL RHYTHM ECG UNCONFIRMED REPORT Electronically signed by : Ayden Rubio MD 05/04/2022 21:13:02
[2022-05-04 11:29] LABS: Occult Blood,Stool Negative (Negative)
[2022-05-04 11:30] VITALS: BP 91/57; PULSE 89; RESP 16; O2SAT 98
--- NOTE | 2022-05-04 12:37 | PC.NURSE ---
on the phone with
[2022-05-04 14:47] VITALS: BP 101/67; PULSE 84; RESP 17; TEMP 36.6; O2SAT 99
== END 2022-05-04 14:49 | disposition home or self-care (01) ==
PROVIDERS: Emergency Provider Emergency Medicine; PCP Family Medicine
DX: K62.5 Hemorrhage of anus and rectum (principal); I48.91 Unspecified atrial fibrillation; Z79.01 Long term (current) use of anticoagulants; F32.A Depression, unspecified; F41.9 Anxiety disorder, unspecified; I25.10 Atherosclerotic heart disease of native coronary artery without angina pectoris; I11.0 Hypertensive heart disease with heart failure; E11.9 Type 2 diabetes mellitus without complications; I25.2 Old myocardial infarction; K21.9 Gastro-esophageal reflux disease without esophagitis; E78.5 Hyperlipidemia, unspecified; E55.9 Vitamin D deficiency, unspecified; D51.9 Vitamin B12 deficiency anemia, unspecified
CPT/HCPCS: 71045; 74177; 80053; 82272; 83880; 84484; 85025; 85610; 85730; 86850; 93005; 99285; G0328; Q9967

== ENCOUNTER → 2022-05-10 06:56 | Outpatient (CLI) | payer MEDICARE, SELFPAY ==
[2022-05-10 18:07] LABS: Basophils # 0.1 K/mm3 (0-0.2); Basophils % 1.8 % (0.1-2.0); Eosinophils # 0.2 K/mm3 (0.0-0.4); Eosinophils % 2.8 % (0.1-12.0); Hemoglobin 12.4 g/dL (12.2-16.2); Lymphocytes # 0.8 K/mm3 (0.7-4.5); Lymphocytes % 14.4 % (10-50); Mean Corpuscular HGB Conc 31.1 g/dL (31.8-35.4); Mean Corpuscular Hemoglobin 31.6 pg (27.0-31.2); Mean Corpuscular Volume 101.7 fl (81-99); Mean Platelet Volume 9.5 fl (7.4-10.4); Monocytes # 0.3 K/mm3 (0.1-1.0); Monocytes % 6.4 % (1.7-9.3); Neutrophils % 74.6 % (37.0-80.0); Platelet Count 319 K/mm3 (142-424); Red Blood Count 3.93 M/mm3 (4.20-5.40); Red Cell Distribution Width 14.1 % (11.5-17.5); White Blood Count 5.4 K/mm3 (4.8-10.8)
[2022-05-10 18:30] LABS: Alanine Aminotransferase 13 U/L (12-78); Albumin Level 4.6 g/dl (3.5-5.0); Albumin/Globulin Ratio 2.1 (1.1-1.8); Alkaline Phosphatase 87 U/L (38-126); Anion Gap 14.1 mEq/L (5-15); Aspartate Amino Transferase 25 U/L (14-36); Bilirubin,Total 0.6 mg/dl (0.2-1.3); Blood Urea Nitrogen 14 mg/dl (7-17); Calcium 9.6 mg/dl (8.4-10.2); Carbon Dioxide 26 mmol/L (22.0-30.0); Chloride 103 mmol/L (98-107); Estimated Glomerular Filt Rate 95 ml/min (>60); GFR (African American) 116 ML/MIN (>60); Globulin 2.2 g/dL (1.3-3.2); Glucose 101 mg/dl (74-100); Potassium 4.1 mmoL/L (3.5-5.1); Sodium 139 mmol/L (136-145); Total Protein,Serum 6.8 g/dl (6.3-8.2)
== END ==
PROVIDERS: PCP Nurse Practitioner; Visit Provider Nurse Practitioner
DX: K59.00 Constipation, unspecified (principal); K92.9 Disease of digestive system, unspecified; R03.1 Nonspecific low blood-pressure reading; R19.5 Other fecal abnormalities
CPT/HCPCS: 80053; 85025

== ENCOUNTER → 2022-09-25 10:55 | Outpatient (CLI) | payer MEDICARE, SELFPAY ==
[2022-09-25 18:49] LABS: Basophils % 0.4 % (0.1-2.0); Eosinophils # 0.1 K/mm3 (0.0-0.4); Eosinophils % 2.1 % (0.1-12.0); Hematocrit 41.4 % (37.0-47.0); Hemoglobin 12.9 g/dL (12.2-16.2); Lymphocytes # 0.7 K/mm3 (0.7-4.5); Lymphocytes % 17.6 % (10-50); Mean Corpuscular HGB Conc 31.2 g/dL (31.8-35.4); Mean Corpuscular Volume 96.2 fl (81-99); Mean Platelet Volume 9.5 fl (7.4-10.4); Monocytes # 0.4 K/mm3 (0.1-1.0); Neutrophils % 70.8 % (37.0-80.0); Platelet Count 312 K/mm3 (142-424); Red Cell Distribution Width 13.7 % (11.5-17.5); White Blood Count 4.2 K/mm3 (4.8-10.8)
[2022-09-25 18:50] LABS: Alanine Aminotransferase 15 U/L (12-78); Albumin Level 4.6 g/dl (3.5-5.0); Albumin/Globulin Ratio 2.3 (1.1-1.8); Alkaline Phosphatase 95 U/L (38-126); Anion Gap 16.1 mEq/L (5-15); Aspartate Amino Transferase 25 U/L (14-36); Bilirubin,Total 0.8 mg/dl (0.2-1.3); Blood Urea Nitrogen 20 mg/dl (7-17); Calcium 9.7 mg/dl (8.4-10.2); Carbon Dioxide 27 mmol/L (22.0-30.0); Chloride 99 mmol/L (98-107); Chol/HDL Ratio 1.5 (1-3.5); Cholesterol 128 mg/dl (140-200); Estimated Glomerular Filt Rate 95 ml/min (>60); GFR (African American) 115 ML/MIN (>60); Glucose 102 mg/dl (74-100); HDL Cholesterol 83 mg/dl (40-60); Potassium 4.1 mmoL/L (3.5-5.1); Sodium 138 mmol/L (136-145); Total Protein,Serum 6.6 g/dl (6.3-8.2); Triglycerides 77 mg/dl (30-150); VLDL Cholesterol 15 mg/dL (0-40)
[2022-09-25 19:01] LABS: Direct LDL Cholesterol 41.02 mg/dL (100-129)
[2022-09-25 19:10] LABS: Creatinine,Urine Random 55 mg/dL (Not Estab.)
[2022-09-25 19:14] LABS: Microalbumin/Creatinine Ratio 20.3
[2022-09-25 19:21] LABS: Thyroid Stimulating Hormone 0.45 uIU/mL (0.465-4.68)
[2022-09-25 19:30] LABS: Hemoglobin A1C 6.1 % (4.0-6.0)
== END ==
PROVIDERS: PCP Nurse Practitioner; Visit Provider Nurse Practitioner
DX: E11.9 Type 2 diabetes mellitus without complications (principal); E78.5 Hyperlipidemia, unspecified; I11.0 Hypertensive heart disease with heart failure; I48.91 Unspecified atrial fibrillation; I50.9 Heart failure, unspecified; R07.2 Precordial pain
CPT/HCPCS: 80053; 80061; 82043; 82570; 83036; 84443; 85025

== ENCOUNTER 2022-09-26 10:41 | Emergency (ER) | payer MEDICARE, SELFPAY ==
[2022-09-26 10:43] VITALS: BP 135/78; PULSE 91; RESP 18; TEMP 36.8; O2SAT 98; BMI 30.2
--- NOTE | 2022-09-26 10:56 | XR_ITS ---
FINAL REPORT CLINICAL HISTORY: pain FINDINGS: Right knee Three views were obtained. There is no acute fracture or dislocation. There is moderate medial compartment joint space narrowing and subchondral sclerosis. There are osteophytes along the undersurface of the patella. There is a bone deformity of the proximal tibial diaphysis. No soft tissue abnormality is identified. IMPRESSION: Moderate to advanced osteoarthritis of the knee. Reviewed, Interpreted and Dictated by Brock King MD Transcribed by Chandni Garrido Authenticated and [facility]
--- NOTE | 2022-09-26 10:56 | XR_ITS ---
FINAL REPORT CLINICAL HISTORY: pain FINDINGS: Right tibia fibula Two views were obtained. There is no acute fracture or dislocation. There is moderate to advanced osteoarthritis of the knee. There is mild bowing deformity of the proximal tibial diaphysis. No soft tissue abnormality is identified. IMPRESSION: Mild bowing deformity of the proximal tibial diaphysis, may be due to sequela of old trauma. Reviewed, Interpreted and Dictated by Brock King MD Transcribed by Chandni Garrido Authenticated and [facility]
--- NOTE | 2022-09-26 10:56 | XR_ITS ---
FINAL REPORT CLINICAL HISTORY: pain FINDINGS: Right ankle Three views were obtained. There is no acute fracture or dislocation. The joint spaces appear normal. There is a moderate plantar spur. There is soft tissue swelling over the medial malleolus. IMPRESSION: Soft tissue swelling without acute bony abnormality. Reviewed, Interpreted and Dictated by Brock King MD Transcribed by Chandni Garrido Authenticated and [facility]
--- NOTE | 2022-09-26 11:01 | EXP.UTC ---
Discharge Plan Disposition Patient Disposition: Home, Self-Care Condition: Good Prescriptions Prescriptions: No Action meclizine 25 mg tablet 25 mg PO TID cholecalciferol (vitamin D3) 25 mcg (1,000 unit) tablet 25 mcg PO DAILY amlodipine 5 mg tablet 2.5 mg PO DAILY metoprolol succinate 25 mg tablet extended release 24 hr 25 mg PO DAILY lisinopril 20 mg tablet 20 mg PO DAILY furosemide 20 mg tablet 20 mg PO DAILY Qty: 90 1RF metformin 500 mg tablet 500 mg PO DAILY Qty: 90 3RF sertraline 50 mg tablet See Rx Instructions .ROUTE .COMPLEX Qty: 90 1RF Dose Instruction: TAKE ONE TABLET BY MOUTH DAILY Rx Instructions: TAKE ONE TABLET BY MOUTH DAILY ascorbic acid (vitamin C) 1,000 MG tablet 1,000 mg PO DAILY famotidine 10 MG tablet 10 mg PO DAILY simvastatin 10 MG tablet 10 mg PO DAILY acetaminophen 500 MG tablet 500 mg PO DAILY calcium carbonate 600 MG tablet 600 mg PO DAILY docusate sodium 100 MG capsule 100 mg PO DAILY aspirin 81 MG tablet,chewable 81 mg PO DAILY pmdthuse-wzm-SD-lycopen-lutein 1 EACH tablet 1 each PO DAILY potassium gluconate 99 MG tablet 99 mg PO DAILY apixaban 5 MG tablet 5 mg PO BID Referrals Follow up/Referrals: Fadi Christy MD [Primary Care Provider] - See instructions Aston Valdivia DO [Staff Physician] - See instructions Activity Restrictions/Add. Instructions Additional Instructions/Restrictions: *weight bearing as tolerated use walker to get around *RICE, Rest the extremity, Ice 15-20 minutes 3-4 times daily, Compress- wear the sen wrap as discussed as much as possible to help reduce swelling and pain, Elevate the extremity when at rest *Sen wrap is for support and help control swelling, use it except in the shower. Be sure that is not to tight but not to loose either *Elevate when resting? *Ibuprofen 600 every 6-8 hours as needed for pain an inflammation if your doctor has said that you can take it if not take Tylenol. If need something more can take Tylenol in between doses of Ibuprofen to help Immediately follow up with your family doctor for new or worsening of symptoms, or no noticeable improvement over the next 3-5 days Follow up with your Family Doctor or Orthopedics if pain persist or no improvement Clinical Impressions Clinical Impression: Lower extremity pain Instructions Patient Instructions: Acetaminophen (Alternative Therapy), How To Perform RICE (Rest, Ice, Compress, Elevate), Ibuprofen Discharge ED Provider: Nicole Dorado [facility] General Stated complaint: RT leg pain Mode of Arrival: Ambulatory Source of Information: Patient Limitations: No Limitations Time Seen by Provider: 09/26/22 11:01 Description of Symptoms (Recalled from Triage Doc. by RN): Patient complaint of right leg pain that began approx 1 week ago. States she did fall about 1 week ago and injured her wrist. HEENT Symptoms (Recalled from RN notes): No Resp Symptoms (Recalled from RN notes): No Skin Symptoms (Recalled from RN notes): No MS Symptoms (Recalled from RN notes): Yes Functional Status (Recalled from RN notes): wnl History of Present Illness Provider Complaint: Patient states that she broke her right lower leg a few years back States that about a week and half ago she fell and hurt her wrist States that the wrist is doing better but she has been having pain in her right knee and lower leg States that at times feels like her knee may give out States that today it was still bothering her so she came in wanting to get some xrays to check it States no longer having pain in her wrist Related Data Home Medications Medication Instructions Recorded Confirmed acetaminophen 500 mg tablet 500 mg PO DAILY Supplement 07/08/20 05/10/22 apixaban 5 mg tablet 5 mg PO BID Blood thinner 07/08/20 05/10/22 ascorbic acid (vitamin C) 1,000 mg 1,000 mg PO DAILY Supplement
[2022-09-26 12:41] VITALS: BP 135/79; PULSE 91; RESP 18; TEMP 36.8; O2SAT 98
== END 2022-09-26 12:42 | disposition home or self-care (01) ==
PROVIDERS: Emergency Provider Nurse Practitioner; PCP Family Medicine
DX: M79.604 Pain in right leg (principal); M17.11 Unilateral primary osteoarthritis, right knee; E11.9 Type 2 diabetes mellitus without complications; I10 Essential (primary) hypertension; K21.9 Gastro-esophageal reflux disease without esophagitis; E78.5 Hyperlipidemia, unspecified; Z79.84 Long term (current) use of oral hypoglycemic drugs
CPT/HCPCS: 73562; 73590; 73610; 99204; 99212; G0463

== ENCOUNTER → 2022-12-12 12:29 | Outpatient (CLI) | payer MEDICARE, SELFPAY ==
--- NOTE | 2022-12-12 13:03 | CT_ITS ---
FINAL REPORT CLINICAL HISTORY: RLQ pain, right inguinal pain COMPARISON: 05/04/2022 FINDINGS: CT OF THE ABDOMEN AND PELVIS WITH CONTRAST Axial CT images of the abdomen and pelvis were obtained after the administration of IV contrast. Coronal reformatted images were also obtained and reviewed. This study was performed with techniques to keep radiation doses as low as reasonably achievable (ALARA). Individualized dose reduction techniques using automated exposure control or adjustment of mA and/or kV according to the patient's size were employed. There is motion artifact on many of the images decreasing sensitivity of this exam. Abdomen: Mild left base atelectasis or scarring.. The heart is normal in size. The liver has an unremarkable appearance, without evidence of mass or biliary ductal dilatation. The spleen is unremarkable. No adrenal mass is present. The pancreas has an unremarkable appearance. The kidneys are normal, without evidence of mass or hydronephrosis. The aorta is normal in caliber. There is no free fluid or adenopathy. No mass or abnormal fluid collection is seen. Pelvis: The appendix is not well-visualized. The urinary bladder is unremarkable. No inflammatory process is seen. There is no evidence of mass or adenopathy. There is no evidence of bowel obstruction. There is sigmoid diverticulosis. Post hysterectomy. IMPRESSION: Sigmoid diverticulosis. Mild left base atelectasis or scarring. Reviewed, Interpreted and Dictated by Carlos Alberto Lopes III, MD Transcribed by Freida Barton Authenticated and . [facility]
[2022-12-12 13:09] LABS: Basophils % 0.5 % (0.1-2.0); Eosinophils # 0.1 K/mm3 (0.0-0.4); Eosinophils % 3.2 % (0.1-12.0); Hematocrit 40.9 % (37.0-47.0); Hemoglobin 12.9 g/dL (12.2-16.2); Lymphocytes # 0.8 K/mm3 (0.7-4.5); Lymphocytes % 19.8 % (10-50); Mean Corpuscular HGB Conc 31.5 g/dL (31.8-35.4); Mean Corpuscular Volume 95.1 fl (81-99); Mean Platelet Volume 7.8 fl (7.4-10.4); Monocytes # 0.4 K/mm3 (0.1-1.0); Monocytes % 8.5 % (1.7-9.3); Neutrophils # 2.9 K/mm3 (1.8-7.8); Platelet Count 229 K/mm3 (142-424); Red Cell Distribution Width 13.8 % (11.5-17.5); White Blood Count 4.3 K/mm3 (4.8-10.8)
[2022-12-12 13:59] LABS: Chloride 104 mmol/L (98-107); Sodium 140 mmol/L (136-145)
[2022-12-12 14:00] LABS: Potassium 3.8 mmoL/L (3.5-5.1)
[2022-12-12 14:02] LABS: Alanine Aminotransferase 17 U/L (12-78); Albumin Level 4.3 g/dl (3.5-5.0); Albumin/Globulin Ratio 1.9 (1.1-1.8); Alkaline Phosphatase 100 U/L (38-126); Anion Gap 11.8 mEq/L (5-15); Aspartate Amino Transferase 24 U/L (14-36); Blood Urea Nitrogen 10 mg/dl (7-17); Calcium 10.5 mg/dl (8.4-10.2); Carbon Dioxide 28 mmol/L (22.0-30.0); Estimated Glomerular Filt Rate 95 ml/min (>60); GFR (African American) 115 ML/MIN (>60); Globulin 2.3 g/dL (1.3-3.2); Glucose 107 mg/dl (74-100); Total Protein,Serum 6.6 g/dl (6.3-8.2)
== END ==
PROVIDERS: PCP Nurse Practitioner; Visit Provider Nurse Practitioner
DX: R10.31 Right lower quadrant pain (principal); N30.01 Acute cystitis with hematuria
CPT/HCPCS: 36415; 74177; 80053; 85025; 87086; Q9967

== ENCOUNTER → 2022-12-21 11:33 | Outpatient (CLI) | payer MEDICARE, SELFPAY ==
--- NOTE | 2022-12-21 11:37 | XR_ITS ---
FINAL REPORT CLINICAL HISTORY: Right low back pain with radiculopathy right groin COMPARISON: 05/26/2019 FINDINGS: No fracture is identified. There is 35 degrees of scoliosis convex to the patient's left in the lumbar region. This is slightly progressed when compared to the prior films of 2019. There is minimal spondylolisthesis of L4 on L5 and advanced osteophyte formation. IMPRESSION: 35 degrees scoliosis convex to the patient's left, which has progressed since the prior films of 2019. Reviewed, Interpreted and Dictated by Brock King MD Transcribed by Jennifer Doty Authenticated and [facility]
== END ==
PROVIDERS: PCP Nurse Practitioner; Visit Provider Nurse Practitioner
DX: M53.3 Sacrococcygeal disorders, not elsewhere classified (principal); M54.41 Lumbago with sciatica, right side
CPT/HCPCS: 72100

== ENCOUNTER → 2023-01-02 23:50 | Outpatient (CLI) | payer MEDICARE, SELFPAY | PROVIDERS: PCP Nurse Practitioner; Visit Provider Nurse Practitioner | DX: R31.9 Hematuria, unspecified (principal) | CPT/HCPCS: 87086 ==

== ENCOUNTER 2023-12-23 14:11 | Outpatient (CLI) | payer MEDICARE, SELFPAY ==
--- NOTE | 2023-12-23 14:19 | XR_ITS ---
FINAL REPORT CLINICAL HISTORY: right knee pain COMPARISON: None FINDINGS: RIGHT KNEE 3 views of the right knee were obtained. There is no acute fracture or dislocation. There is marked medial compartment narrowing and varus angulation present. The varus angulation results in widening of the lateral compartment. There are osteophytes projecting from the posterior surface of the patella. Soft tissues are unremarkable. IMPRESSION: No acute bony abnormality. Severe degenerative change as described above. Reviewed, Interpreted and Dictated by Brock King MD Transcribed by Jennifer Doty Authenticated and . [facility]
--- NOTE | 2023-12-23 14:19 | XR_ITS ---
FINAL REPORT CLINICAL HISTORY: left knee pain COMPARISON: None FINDINGS: LEFT KNEE 3 views of the left knee were obtained. There is no acute fracture or dislocation. There is marked narrowing of the medial compartment with subchondral sclerosis present. There is widening of the lateral compartment. Posterior osteophytes project from the posterior aspect of the patella. Soft tissues are unremarkable. IMPRESSION: No acute bony abnormality. Severe degenerative change as described. Reviewed, Interpreted and Dictated by Brock King MD Transcribed by Jennifer Doty Authenticated and [facility]
== END 2023-12-23 23:59 | disposition home or self-care (01) ==
LOC: RAD 14:13
PROVIDERS: PCP Nurse Practitioner; Visit Provider Physician Assistant
DX: M25.561 Pain in right knee (principal); M25.562 Pain in left knee
CPT/HCPCS: 73562

== ENCOUNTER 2024-01-20 10:43 | Outpatient (CLI) | payer MEDICARE, SELFPAY ==
--- NOTE | 2024-01-20 10:48 | XR_ITS ---
FINAL REPORT CLINICAL HISTORY: LLL pneumonia, COVID COMPARISON: 05/04/2022 FINDINGS: No acute pulmonary density is evident. There is no evidence of effusion or other pleural disease. The mediastinum has a normal appearance. The cardiac silhouette is unremarkable. IMPRESSION: Unremarkable chest exam. Reviewed, Interpreted and Dictated by Renetta eMza MD Transcribed by Pita Patterson Authenticated and [facility]
== END 2024-01-20 23:59 | disposition home or self-care (01) ==
LOC: RAD 10:45
PROVIDERS: PCP Nurse Practitioner; Visit Provider Nurse Practitioner
DX: J18.9 Pneumonia, unspecified organism (principal); U07.1 COVID-19; R05.9 Cough, unspecified
CPT/HCPCS: 71046

== ENCOUNTER 2024-08-20 12:07 | Emergency (ER) | payer MEDICARE, SELFPAY ==
[2024-08-20] VITALS (7 sets, daily range): BP systolic 133–168; BP diastolic 79–113; PULSE 61–98; RESP 16–23; TEMP 36.8–37; O2SAT 95–99; BMI 29.2
--- NOTE | 2024-08-20 12:12 | ED_ITS ---
Discharge Plan Disposition Patient Disposition: Home, Self-Care Condition: Good Prescriptions Prescriptions: No Action cholecalciferol (vitamin D3) 25 mcg (1,000 unit) tablet 25 mcg PO DAILY furosemide 20 mg tablet 20 mg PO DAILY Qty: 90 1RF lisinopril 10 mg tablet 10 mg PO BID doxycycline hyclate 100 mg tablet 100 mg PO BID Qty: 20 0RF benzonatate 200 mg capsule 200 mg PO TID PRN (Reason: cough) Qty: 30 0RF amlodipine 2.5 mg tablet 2.5 mg PO DAILY Qty: 30 0RF dextromethorphan-guaifenesin 60-1,200 mg tablet extended release 12 hr 1 tab PO Q12H Qty: 60 0RF metformin 500 mg tablet 500 mg PO DAILY Qty: 90 3RF sertraline 50 mg tablet See Rx Instructions .ROUTE .COMPLEX Qty: 90 3RF Dose Instruction: TAKE ONE TABLET BY MOUTH DAILY Rx Instructions: TAKE ONE TABLET BY MOUTH DAILY ascorbic acid (vitamin C) 1,000 MG tablet 1,000 mg PO DAILY simvastatin 10 MG tablet 10 mg PO DAILY acetaminophen 500 MG tablet 500 mg PO DAILY calcium carbonate 600 MG tablet 600 mg PO DAILY aspirin 81 MG tablet,chewable 81 mg PO DAILY [id number]-YM-lycopen-lutein 1 EACH tablet 1 each PO DAILY apixaban 5 MG tablet 5 mg PO BID famotidine 10 mg tablet 10 mg PO DAILY PRN (Reason: stomach) Referrals Follow up/Referrals: Alma Delia Johnson APRN [Primary Care Provider] - See instructions Aston Valdivia DO [Staff Physician] - See instructions Activity Restrictions/Add. Instructions Additional Instructions/Restrictions: I have referred you to orthopedics because you have some fluid on your left knee however the remainder of your workup revealed no acute fracture. If you have continued new or worsening signs or symptoms follow-up with your PCP return to the ER as needed. Commend symptomatic treatment with Tylenol ice as necessary. Clinical Impressions Clinical Impression: Effusion of knee joint, left, Contusion of multiple sites Fall Qualifiers: Encounter type: initial encounter Qualified Code(s): W19.XXXA - Unspecified fall, initial encounter Print Language Print Language: Citizen Of [place] Discharge ED Provider: Bhupendra Santana General Adult HPI <TERESA Tate - Last Filed: 08/20/24 17:06> General Chief complaint: Fall Stated complaint: [id number]- Fall-pain and swelling legs and R foot Time Seen by Provider: 08/20/24 12:12 History of Present Illness HPI narrative: Patient presents for evaluation of a fall. Patient was working in her yard with her and slipped falling to the ground. She reports that she has right hip pain right knee pain right tibia-fibula pain left knee abrasion but denies head injury striking the ground loss of consciousness. She could not initially get up off the ground without assistance and hence called 911. Patient was eventually assisted into her house where she cleaned myself up and drove myself to the emergency department . She denies any headache fever chills hemoptysis hematochezia melena nausea vomiting diarrhea loss of motor or sensory any focal neurologic deficits. She is however on Eliquis aspirin Related Data Home Medications ?Medication ?Instructions ?Recorded ?Confirmed acetaminophen 500 mg tablet 500 mg PO DAILY Supplement 07/08/20 01/27/24 apixaban 5 mg tablet 5 mg PO BID Blood thinner 07/08/20 01/27/24 ascorbic acid (vitamin C) 1,000 mg 1,000 mg PO DAILY Supplement 07/08/20 01/27/24 tablet aspirin 81 mg chewable tablet 81 mg PO DAILY Supplement 07/08/20 01/27/24 calcium carbonate 600 mg PO DAILY Supplement 07/08/20 01/27/24 [id number]-dhu-zjmlj acid 0.4 1 each PO DAILY Supplement 07/08/20 01/27/24 mg-lycopene 300 mcg-lutein 250 mcg tablet simvastatin 10 mg tablet 10 mg PO DAILY Cholesterol 07/08/20 01/27/24 cholecalciferol (vitamin D3) 25 25 mcg PO DAILY 05/03/22 01/27/24 mcg (1,000 unit) tablet famotidine 10 mg tablet 10 mg PO DAILY PRN stomach 01/29/23 01/27/24 lisinopril 10 mg tablet 10 mg PO BID 01/29/23 01/27/24 Previous Rx's ?Medication ?Instructions ?Recorded furosemide 20 mg tablet 20 mg PO DAILY #90 tabs 09/25/22 amlodipine 2.5 mg tablet 2.5 mg PO DAILY #30 tabs 02/26/23 dextromethorphan-guaifenesin ER 60 1 tab PO Q12H #60 tabs 01/09/24 mg-1,200 mg tab,extend release,12hr benzonatate 200 mg capsule 200 mg PO TID PRN cough #30 caps 01/20/24 doxycycline hyclate 100 mg tablet 100 mg PO BID #20 tabs 01/20/24 metformin 500 mg tablet 500 mg PO DAILY #90 tabs 01/23/24 sertraline 50 mg tablet See Rx Instructions .Route 07/14/24 .COMPLEX #90 tabs Allergies Allergy/AdvReac Type Severity Reaction Status Date / Time codeine Allergy Verified 01/27/24 11:11 [facility] <TERESA Tate - Last Filed: 08/20/24 17:06> [facility] Disclaimer: The information contained in this section may have been updated after the patient was seen, as this information can be updated by other users. 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 Surgical History History of cardiac cath (~2020) History of eye surgery (~1994) History of heart artery stent (~2015) History of hysterectomy (~1974) Hx of appendectomy (~1950) Family History Other Heart attack Social History Smoking Status: Never smoker alcohol intake: never current occupational status: retired Travel in the last 8 weeks: None Have you lived/traveled outside US in past 30 days?: No Contact w/someone who lives/traveled outside US past 30 days?: No Exposure to someone with infectious disease in past 14 days?: No Do you have a fever (greater than 100.4 F or 38 C)?: No Have you tested positive for COVID-19: No Exposed to someone with COVID-19 in past 14 days?: No Do you have a sore throat?: No Do you have a cough?: No Do you have any weakness?: No Do you have any diarrhea?: No Are you experiencing any unusual bleeding?: No Do you have any muscle aches/pain?: No Do you have any abdominal pain?: No Are you experiencing loss of taste or smell?: No Other Medical History Have you received the Flu Vaccine for this season: Yes Have you received the Pneumonia Vaccine: Yes <TERESA Tate - Last Filed: 08/20/24 17:06> ROS Obtained: Yes Systems reviewed as appropriate & no additional complaints except as documented Physical Exam <TERESA Tate - Last Filed: 08/20/24 17:06> General General appearance: alert and in no apparent distress Respiratory Respiratory exam: Present normal lung sounds bilaterally Cardiovascular Cardiovascular exam: Present regular rate Neurological Exam Neurological exam: Present alert, oriented X3, CN II-XII intact and normal gait; Absent motor sensory deficit Medical Decision Making <TERESA Tate - Last Filed: 08/20/24 17:06> Medical Records Medical records reviewed: Yes I reviewed the patient's medical records. Screening: Per USPSTF and CDC recommendations, given the prevalence of disease in our region, it is our hospital?s policy to screen for HIV and viral Hepatitis for all patients aged 18 and over and those with ongoing risk factors. Olu Inquiry Pt receiving controlled substance: No Vital Signs: 08/20/24 12:15 08/20/24 12:21 08/20/24 12:30 Temperature 98.2 F Temperature Source Oral Pulse Rate 92 H 61 Pulse Rate [Left Radial] 86 Respiratory Rate 20 19 Blood Pressure 165/79 H 133/83 Blood Pressure [Right Arm] 165/79 H Blood Pressure Mean [Right Arm] 107 Blood Pressure Source Blood Pressure Position 02 Sat by Pulse Oximetry 97 97 95 Oxygen Delivery Method Room Air 08/20/24 13:58 08/20/24 14:00 08/20/24 14:17 Temperature Temperature Source Pulse Rate 98 H 89 92 H Pulse Rate [Left Radial] Respiratory Rate 16 23 16 Blood Pressure 145/95 H 162/90 H 168/113 H Blood Pressure [Right Arm] Blood Pressure Mean [Right Arm] Blood Pressure Source Blood Pressure Position 02 Sat by Pulse Oximetry 97 98 96 Oxygen Delivery Method 08/20/24 15:27 Temperature 98.6 F Temperature Source Oral Pulse Rate 66 Pulse Rate [Left Radial] Respiratory Rate 17 Blood Pressure 166/86 H Blood Pressure [Right Arm] Blood Pressure Mean [Right Arm] Blood Pressure Source Automatic Cuff Blood Pressure Position Supine 02 Sat by Pulse Oximetry Oxygen Delivery Method Room Air Lab Data Lab results reviewed: Yes I reviewed the patient's lab results. Lab Results 08/20/24 12:46: WBC 7.3, RBC 3.87 L, Hgb 11.8 L, Hct 36.6 L, MCV 94.6, MCH 30.5, MCHC 32.2, RDW 13.4, Plt Count 264, MPV 9.4, Neut % (Auto) 80.0, Lymph % (Auto) 7.5 L, [place] % (Auto) 10.5 H, Eos % (Auto) 1.2, Baso % (Auto) 0.4, Neut # (Auto) 5.9, Lymph # (Auto) 0.6 L, [place] # (Auto) 0.8, Eos # (Auto) 0.1, Baso # (Auto) 0.0, PT 11.2, INR 1.00, Sodium 139, Potassium 3.7, Chloride 103, Carbon Dioxide 26, Anion Gap 13.7, BUN 14, Creatinine 0.50 L, Estimated Creat Clear 44, Estimated GFR 117, Est GFR ( Amer) 142, Glucose 144 H, Calcium 9.7, Magnesium 1.8, Total Bilirubin 0.7, AST 26, ALT 19, Alkaline Phosphatase 75, Total Creatine Kinase 72, Total Protein 6.9, Albumin 4.4, Globulin 2.5, Albumin/Globulin Ratio 1.8 08/20/24 14:08: Urine Color Yellow, Urine Appearance Clear, Urine pH 6.0, Ur Specific [place] <= 1.005, Urine Protein Negative, Urine Glucose (UA) Negative, Urine Ketones Negative, Urine Blood Negative, Urine Nitrate Negative, Urine Bilirubin Negative, Urine Urobilinogen 0.2, Ur Leukocyte Esterase Trace, Urine RBC None, Urine WBC Occasional, Ur Squamous Epith Cells Occasional, Urine Bacteria Trace 08/20/24 12:46 08/20/24 12:46 Orders (Tests/Meds): ED MEDICATIONS Discontinued Medications Generic Name Dose Route Start Last Admin Trade Name Rebeca PRN Reason Stop Dose Admin Acetaminophen 1,000 mg 08/20/24 12:31 08/20/24 12:37 Acetaminophen 500mg Tab PO 08/20/24 12:32 1,000 mg ONCE ONE Administration ORDERS Category Date Time Status CT abdomen pelvis wo con Stat Cat Scan 08/20/24 12:[address] cervical spine wo con Stat Cat Scan 08/20/24 12:[address] chest wo con Stat Cat Scan 08/20/24 12:[address] head/brain wo con Stat Cat Scan 08/20/24 12:[address] lumbar spine wo con Stat Cat Scan 08/20/24 12:[address] thoracic spine wo con Stat Cat Scan 08/20/24 12:32 Completed Ankle XR -Right minimum 3 Views [XR ankle RT min 3V] Exams 08/20/24 12:31 Completed Stat Femur XR right 2 views [XR femur RT 2V] Stat Exams 08/20/24 12:31 Completed Knee XR left 3 views [XR knee LT 3V] Stat Exams 08/20/24 12:31 Completed Knee XR right 3 views [XR knee RT 3V] Stat Exams 08/20/24 12:31 Completed Tibia/fibula XR left 2 views [XR tibia fibula LT 2V] Exams 08/20/24 12:31 Completed Stat Tibia/fibula XR right 2 views [XR tibia fibula RT 2V] Exams 08/20/24 12:31 Completed Stat CBC w/Auto Diff [Complete Blood Count Auto Diff] Stat Lab 08/20/24 12:46 Completed CK [Creatine Kinase] Stat Lab 08/20/24 12:46 Completed CMP [Comprehensive Metabolic Panel] Stat Lab 08/20/24 12:46 Completed INR [Prothrombin Time INR] Stat Lab 08/20/24 12:46 Completed Magnesium Stat Lab 08/20/24 12:46 Completed UA [Urinalysis and Microscopic] Stat Lab 08/20/24 14:08 Completed Medical Decision Narrative: In summary patient is a 83-year-old female who presents to the emergency department for evaluation of ground-level fall. Patient is initially hypertensive at 165/79 heart rate 92 with normal sinus rhythm at a bedside monitor breathing 20 times a minute satting at 97% on room air upon arrival, afebrile at 98.2. Physical exam reveals that she has full range of motion of all 4 extremities however she has an abrasion to her left patella, she has ecchymosis midshaft tibia, she has tenderness at the right hip but no palpable bony deformities felt anywhere she has no cervical spine or dorsal spine tenderness. She has full range of motion of her C-spine. Wheelwright Coma Score 15 cranial nerves II through XII intact grossly to exam patient is awake alert and oriented person place and circumstance. Pupils equal round reactive to light. Breath sounds clear and equal bilaterally to the bases without evidence symptoms. There is no tenderness palpation of the anterior chest wall. Abdomen soft nontender no rebound or guarding no rigidity. Bowel sounds normal active. Patient is neurovascularly intact distally in all 4 extremities with strong peripheral pulses in all 4.. Differential diagnosis includes contusion versus fracture versus intracranial injury versus occult bleeding due to blood thinner use etc. Initial workup will be conducted with ED trauma scans and plain film x-rays of her injured extremities, hematologic labs urinalysis.. Initial interventions include Tylenol for now. Initial workup reviewed by me and patient's hematologic labs are nonactionable and my informal Tober Tatian of all her imaging reveals no acute traumatic injury or bony abnormality prior to radiology read. Please see final reads for formal interpretation.. Upon repeat evaluation patient reports improvement in her discomfort and is actually ambulatory in the ER with a Glascow coma score 15 tolerating oral intake. Given this patient is appropriate for discharge with referral to orthopedics for any ongoing management and close follow-up with PCP with strict return precautions to the ER as needed. <Bhupendra Santana MD - Last Filed: 08/21/24 07:22> Vital Signs: 08/20/24 12:15 08/20/24 12:21 08/20/24 12:30 Temperature 98.2 F Temperature Source Oral Pulse Rate 92 H 61 Pulse Rate [Left Radial] 86 Respiratory Rate 20 19 Blood Pressure 165/79 H 133/83 Blood Pressure [Right Arm] 165/79 H Blood Pressure Mean [Right Arm] 107 Blood Pressure Source Blood Pressure Position 02 Sat by Pulse Oximetry 97 97 95 Oxygen Delivery Method Room Air 08/20/24 13:58 08/20/24 14:00 08/20/24 14:17 Temperature Temperature Source Pulse Rate 98 H 89 92 H Pulse Rate [Left Radial] Respiratory Rate 16 23 16 Blood Pressure 145/95 H 162/90 H 168/113 H Blood Pressure [Right Arm] Blood Pressure Mean [Right Arm] Blood Pressure Source Blood Pressure Position 02 Sat by Pulse Oximetry 97 98 96 Oxygen Delivery Method 08/20/24 15:27 Temperature 98.6 F Temperature Source Oral Pulse Rate 66 Pulse Rate [Left Radial] Respiratory Rate 17 Blood Pressure 166/86 H Blood Pressure [Right Arm] Blood Pressure Mean [Right Arm] Blood Pressure Source Automatic Cuff Blood Pressure Position Supine 02 Sat by Pulse Oximetry Oxygen Delivery Method Room Air Lab Data Lab Results 08/20/24 12:46: WBC 7.3, RBC 3.87 L, Hgb 11.8 L, Hct 36.6 L, MCV 94.6, MCH 30.5, MCHC 32.2, RDW 13.4, Plt Count 264, MPV 9.4, Neut % (Auto) 80.0, Lymph % (Auto) 7.5 L, [place] % (Auto) 10.5 H, Eos % (Auto) 1.2, Baso % (Auto) 0.4, Neut # (Auto) 5.9, Lymph # (Auto) 0.6 L, [place] # (Auto) 0.8, Eos # (Auto) 0.1, Baso # (Auto) 0.0, PT 11.2, INR 1.00, Sodium 139, Potassium 3.7, Chloride 103, Carbon Dioxide 26, Anion Gap 13.7, BUN 14, Creatinine 0.50 L, Estimated Creat Clear 44, Estimated GFR 117, Est GFR ( Amer) 142, Glucose 144 H, Calcium 9.7, Magnesium 1.8, Total Bilirubin 0.7, AST 26, ALT 19, Alkaline Phosphatase 75, Total Creatine Kinase 72, Total Protein 6.9, Albumin 4.4, Globulin 2.5, Albumin/Globulin Ratio 1.8 08/20/24 14:08: Urine Color Yellow, Urine Appearance Clear, Urine pH 6.0, Ur Specific [place] <= 1.005, Urine Protein Negative, Urine Glucose (UA) Negative, Urine Ketones Negative, Urine Blood Negative, Urine Nitrate Negative, Urine Bilirubin Negative, Urine Urobilinogen 0.2, Ur Leukocyte Esterase Trace, Urine RBC None, Urine WBC Occasional, Ur Squamous Epith Cells Occasional, Urine Bacteria Trace Orders (Tests/Meds): ED MEDICATIONS Discontinued Medications Generic Name Dose Route Start Last Admin Trade Name Freq PRN Reason Stop Dose Admin Acetaminophen 1,000 mg 08/20/24 12:31 08/20/24 12:37 Acetaminophen 500mg Tab PO 08/20/24 12:32 1,000 mg ONCE ONE Administration ORDERS Category Date Time Status CT abdomen pelvis wo con Stat Cat Scan 08/20/24 12:[address] cervical spine wo con Stat Cat Scan 08/20/24 12:[address] chest wo con Stat Cat Scan 08/20/24 12:[address] head/brain wo con Stat Cat Scan 08/20/24 12:[address] lumbar spine wo con Stat Cat Scan 08/20/24 12:[address] thoracic spine wo con Stat Cat Scan 08/20/24 12:32 Completed Ankle XR -Right minimum 3 Views [XR ankle RT min 3V] Exams 08/20/24 12:31 Completed Stat Femur XR right 2 views [XR femur RT 2V] Stat Exams 08/20/24 12:31 Completed Knee XR left 3 views [XR knee LT 3V] Stat Exams 08/20/24 12:31 Completed Knee XR right 3 views [XR knee RT 3V] Stat Exams 08/20/24 12:31 Completed Tibia/fibula XR left 2 views [XR tibia fibula LT 2V] Exams 08/20/24 12:31 Completed Stat Tibia/fibula XR right 2 views [XR tibia fibula RT 2V] Exams 08/20/24 12:31 Completed Stat CBC w/Auto Diff [Complete Blood Count Auto Diff] Stat Lab 08/20/24 12:46 Completed CK [Creatine Kinase] Stat Lab 08/20/24 12:46 Completed CMP [Comprehensive Metabolic Panel] Stat Lab 08/20/24 12:46 Completed INR [Prothrombin Time INR] Stat Lab 08/20/24 12:46 Completed Magnesium Stat Lab 08/20/24 12:46 Completed UA [Urinalysis and Microscopic] Stat Lab 08/20/24 14:08 Completed Medical Decision Narrative: In summary patient is a 83-year-old female who presents to the emergency department for evaluation of ground-level fall. Patient is initially hypertensive at 165/79 heart rate 92 with normal sinus rhythm at a bedside monitor breathing 20 times a minute satting at 97% on room air upon arrival, afebrile at 98.2. Physical exam reveals that she has full range of motion of all 4 extremities however she has an abrasion to her left patella, she has ecchymosis midshaft tibia, she has tenderness at the right hip but no palpable bony deformities felt anywhere she has no cervical spine or dorsal spine tenderness. She has full range of motion of her C-spine. Wheelwright Coma Score 15 cranial nerves II through XII intact grossly to exam patient is awake alert and oriented person place and circumstance. Pupils equal round reactive to light. Breath sounds clear and equal bilaterally to the bases without evidence symptoms. There is no tenderness palpation of the anterior chest wall. Abdomen soft nontender no rebound or guarding no rigidity. Bowel sounds normal active. Patient is neurovascularly intact distally in all 4 extremities with strong peripheral pulses in all 4.. Differential diagnosis includes contusion versus fracture versus intracranial injury versus occult bleeding due to blood thinner use etc. Initial workup will be conducted with ED trauma scans and plain film x-rays of her injured extremities, hematologic labs urinalysis.. Initial interventions include Tylenol for now. Initial workup reviewed by me and patient's hematologic labs are nonactionable and my informal Tober Tatian of all her imaging reveals no acute traumatic injury or bony abnormality prior to radiology read. Please see final reads for formal interpretation.. Upon repeat evaluation patient reports improvement in her discomfort and is actually ambulatory in the ER with a Glascow coma score 15 tolerating oral intake. Given this patient is appropriate for discharge with referral to orthopedics for any ongoing management and close follow-up with PCP with strict return precautions to the ER as needed. I was consulted by the MONICA, and we discussed the complexity of the problems being addressed. I approved the treatment and management plan for this patient's care in the Emergency Department, thus performing a substantive portion of the medical decision making. Bhupendra Santana MD Critical Care <TERESA Tate - Last Filed: 08/20/24 17:06> Critical Care Time Critical Care Time: No
--- NOTE | 2024-08-20 12:31 | XR_ITS ---
FINAL REPORT CLINICAL HISTORY: Ground-level fall in the yard FINDINGS: AP, lateral and oblique views of the left knee were obtained. There is no prior exam for comparison. There is no acute osseous abnormality of the left knee. There is tricompartmental degenerative joint disease. The soft tissues are without acute abnormality. There is a small joint effusion. IMPRESSION: Small joint effusion without acute osseous abnormality of the left knee. If clinical concern persists, consider CT. Reviewed, Interpreted and Dictated by Mary Kay Horvath MD Transcribed by Freida Barton Authenticated and [facility]
--- NOTE | 2024-08-20 12:31 | XR_ITS ---
FINAL REPORT CLINICAL HISTORY: Ground-level fall in the yard FINDINGS: AP, lateral and oblique views of the right knee were obtained. There is no prior exam for comparison. There is no acute osseous abnormality of the right knee. There is tricompartmental degenerative joint disease. The soft tissues are without acute abnormality. There is no joint effusion. IMPRESSION: No acute osseous abnormality of the right knee. Reviewed, Interpreted and Dictated by Mary Kay Horvath MD Transcribed by Freida Barton Authenticated and [facility]
--- NOTE | 2024-08-20 12:31 | XR_ITS ---
FINAL REPORT CLINICAL HISTORY: Ground-level fall in the yard FINDINGS: AP and lateral views of the left tibia and fibula were obtained. There is no prior exam for comparison. There is no acute fracture of the left tibia or fibula. Degenerative disease at the knee. The soft tissues are normal. IMPRESSION: No acute osseous abnormality of the left tibia or fibula. Reviewed, Interpreted and Dictated by Mary Kay Horvath MD Transcribed by Freida Barton Authenticated and [facility]
--- NOTE | 2024-08-20 12:31 | CT_ITS ---
FINAL REPORT TECHNIQUE: Thin section axial images were obtained from the lung apices through the upper abdomen without contrast. This study was performed with techniques to keep radiation doses as low as reasonably achievable (ALARA). Individualized dose reduction techniques using automated exposure control or adjustment of mA and/or kV according to the patient's size were employed. CLINICAL HISTORY: Ground-level fall in the yard FINDINGS: There is no mediastinal, hilar, or axillary lymphadenopathy. No pleural or pericardial effusion. The heart is mildly enlarged. There is lingular and left lower lobe atelectasis. No suspicious nodule is identified. There is no consolidation or pneumothorax. Limited, unenhanced evaluation of the upper abdomen is without acute abnormality. There is no acute osseous abnormality. IMPRESSION: No acute intrathoracic abnormality. Mild cardiomegaly. Reviewed, Interpreted and Dictated by Mary Kay Horvath MD Transcribed by Chandni Garrido Authenticated and [facility]
--- NOTE | 2024-08-20 12:31 | XR_ITS ---
FINAL REPORT CLINICAL HISTORY: Ground-level fall in the yard FINDINGS: AP, oblique, and lateral views of the right ankle were obtained. No prior exam for comparison. There is no fracture or dislocation. Degenerative joint disease. There may be mild medial soft tissue edema. IMPRESSION: No acute osseous abnormality of the right ankle. Reviewed, Interpreted and Dictated by Mary Kay Horvath MD Transcribed by Freida Barton Authenticated and [facility]
--- NOTE | 2024-08-20 12:31 | XR_ITS ---
FINAL REPORT CLINICAL HISTORY: Ground-level fall in the yard FINDINGS: AP and lateral views of the right tibia and fibula were obtained. There is no prior exam for comparison. There is no acute fracture of the right tibia or fibula. There is degenerative joint disease of the knee, greater than at the ankle. The soft tissues are normal. IMPRESSION: No acute osseous abnormality of the right tibia or fibula. Reviewed, Interpreted and Dictated by Mary Kay Horvath MD Transcribed by Freida Barton Authenticated and . [facility]
--- NOTE | 2024-08-20 12:31 | XR_ITS ---
FINAL REPORT CLINICAL HISTORY: Ground-level fall in the yard FINDINGS: Two views of the right femur were obtained. No prior exam for comparison. There is no acute fracture or dislocation of the right femur. The hip is intact. 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 There is no acute soft tissue abnormality. IMPRESSION: No acute osseous abnormality identified. Reviewed, Interpreted and Dictated by Mary Kay Horvath MD Transcribed by Freida Barton Authenticated and [facility]
--- NOTE | 2024-08-20 12:31 | CT_ITS ---
FINAL REPORT TECHNIQUE: Thin section axial images were obtained from the lung bases to the pubic symphysis without IV contrast. Coronal reconstruction images were obtained from the axial data. Exam was performed using dose reduction technique. CLINICAL HISTORY: Ground-level fall in the yard COMPARISON: 12/12/2022 FINDINGS: Evaluation for solid organ in GI injury is limited without oral or IV contrast. The unenhanced liver is homogeneous. The gallbladder is present. The spleen and adrenal glands are without acute abnormality. There is fatty atrophy of the pancreas. No renal stone or hydronephrosis noted. There is no perinephric stranding. There is no evidence of small bowel obstruction. The appendix is not seen and there are no secondary signs of acute appendicitis. There is diverticulosis without diverticulitis. Multiple small retroperitoneal lymph nodes are noted in the upper abdomen, similar to the prior study. No pelvic lymphadenopathy. Status post hysterectomy. No acute osseous abnormality is identified. IMPRESSION: Evaluation for solid organ and GI injury limited without contrast. Otherwise, no acute abnormality on this unenhanced exam. Reviewed, Interpreted and Dictated by Mary Kay Horvath MD Transcribed by Freida Barton Authenticated and [facility]
--- NOTE | 2024-08-20 12:32 | CT_ITS ---
FINAL REPORT TECHNIQUE: Thin section axial images were obtained through the thoracic spine without contrast. Sagittal and coronal images were obtained from the axial data. This study was performed with techniques to keep radiation doses as low as reasonably achievable, (ALARA). Individualized dose reduction techniques using automated exposure control or adjustment of mA and/or kV according to the patient's size were employed. CLINICAL HISTORY: Ground-level fall in the yard COMPARISON: None FINDINGS: There is no acute fracture of the thoracic spine. Vertebral body height is preserved. There is dextroscoliosis. Multilevel degenerative disc disease is noted. There is no acute paraspinal abnormality. IMPRESSION: No acute fracture of the thoracic spine. Reviewed, Interpreted and Dictated by Mary Kay Horvath MD Transcribed by Pita Patterson Authenticated and [facility]
--- NOTE | 2024-08-20 12:32 | CT_ITS ---
FINAL REPORT TECHNIQUE: Thin section axial images were obtained from skull base to vertex without contrast. Coronal reconstruction images were obtained from the axial data. Exam was performed using dose reduction techniques such as automated exposure control, adjustment of the mA and kV according to patient size, and use of iterative reconstruction technique. CLINICAL HISTORY: Ground-level fall in the yard FINDINGS: There is atrophy. No mass effect or midline shift. No intracranial hemorrhage. No hydrocephalus. The basilar cisterns are preserved. The posterior fossa is without acute abnormality. There is mild soft tissue edema of the right frontal scalp. No acute osseous abnormality is identified. IMPRESSION: Atrophy without acute hemorrhage or acute intracranial abnormality. Reviewed, Interpreted and Dictated by Mary Kay Horvath MD Transcribed by Chandni Garrido Authenticated and [facility]
--- NOTE | 2024-08-20 12:32 | CT_ITS ---
FINAL REPORT TECHNIQUE: Thin section axial images were obtained through the lumbar spine without contrast. Sagittal and coronal reconstruction images were obtained from the axial data. This study was performed with techniques to keep radiation doses as low as reasonably achievable, (ALARA). Individualized dose reduction techniques using automated exposure control or adjustment of mA and/or kV according to the patient's size were employed. CLINICAL HISTORY: Ground-level fall in the yard COMPARISON: None FINDINGS: There is no acute fracture of the lumbar spine. Vertebral body height is preserved. There is levoscoliosis. There is multilevel degenerative disc disease. There is no acute paraspinal abnormality. IMPRESSION: No acute fracture of the lumbar spine. Reviewed, Interpreted and Dictated by Mary Kay Horvath MD Transcribed by Pita Patterson Authenticated and [facility]
--- NOTE | 2024-08-20 12:32 | CT_ITS ---
FINAL REPORT TECHNIQUE: Thin section axial images were obtained through the cervical spine without contrast. Multiplanar reconstruction images were obtained from the axial data. Exam was performed using dose reduction techniques. CLINICAL HISTORY: Ground-level fall in the yard FINDINGS: There is no acute fracture. There is minimal anterolisthesis of C2 on 3, likely degenerative. Multilevel degenerative disc disease is identified. There is no evidence of unilateral or bilateral facet lock. Vertebral body height is preserved. No acute paraspinal abnormality is identified. IMPRESSION: Multilevel degenerative disc disease. Reviewed, Interpreted and Dictated by Mary Kay Horvath MD Transcribed by Chandni Garrido Authenticated and [facility]
[2024-08-20] MEDS: ACETAMINOPHEN 500MG TAB 1000 MG PO (12:37)
[2024-08-20 12:53] LABS: Basophils % 0.4 % (0.1-2.0); Eosinophils # 0.1 Kmm3 (0.0-0.4); Eosinophils % 1.2 % (0.1-12.0); Hematocrit 36.6 % (37.0-47.0); Hemoglobin 11.8 g/dL (12.2-16.2); Lymphocytes # 0.6 K/mm3 (0.7-4.5); Lymphocytes % 7.5 % (10-50); Mean Corpuscular HGB Conc 32.2 g/dL (31.8-35.4); Mean Corpuscular Hemoglobin 30.5 pg (27.0-31.2); Mean Corpuscular Volume 94.6 fl (81-99); Mean Platelet Volume 9.4 fl (7.4-10.4); Monocytes # 0.8 K/mm3 (0.1-1.0); Monocytes % 10.5 % (1.7-9.3); Neutrophils # 5.9 K/mm3 (1.8-7.8); Nucleated Red Blood Cells # 0 10^3/uL; Nucleated Red Blood Cells % 0 %; Platelet Count 264 K/mm3 (142-424); Red Blood Count 3.87 M/mm3 (4.20-5.40); Red Cell Distribution Width 13.4 % (11.5-17.5); White Blood Count 7.3 K/mm3 (4.8-10.8)
[2024-08-20 13:04] LABS: Alanine Aminotransferase 19 U/L (12-78); Albumin Level 4.4 g/dl (3.5-5.0); Albumin/Globulin Ratio 1.8 (1.1-1.8); Alkaline Phosphatase 75 U/L (38-126); Anion Gap 13.7 mEq/L (5-15); Aspartate Amino Transferase 26 U/L (14-36); Bilirubin,Total 0.7 mg/dl (0.2-1.3); Blood Urea Nitrogen 14 mg/dl (7-17); Calcium 9.7 mg/dl (8.4-10.2); Carbon Dioxide 26 mmol/L (22.0-30.0); Chloride 103 mmol/L (98-107); Creatine Kinase 72 U/L (30-135); Creatinine Clearance Estimated 44 mL/min (50-200); Estimated Glomerular Filt Rate 117 ml/min (>60); GFR (African American) 142 ML/MIN (>60); Globulin 2.5 g/dL (1.3-3.2); Glucose 144 mg/dl (74-100); Magnesium 1.8 mg/dl (1.6-2.3); Potassium 3.7 mmoL/L (3.5-5.1); Sodium 139 mmol/L (136-145); Total Protein,Serum 6.9 g/dl (6.3-8.2)
[2024-08-20 14:13] LABS: Prothrombin Time 11.2 seconds (10.1-12.5)
[2024-08-20 14:20] LABS: Microscopic, Urine URINE MICROSCOPIC (MICROSCOPIC)
[2024-08-20 14:21] LABS: Appearance,Urine CLEAR (Clear); Bilirubin,Urine Negative (Negative); Blood, Urine Negative (Negative); Color,Urine YELLOW (Yellow); Glucose,Urine (UA) Negative (Negative); Ketones,Urine Negative (Negative); Leukocyte Esterase,Urine TRACE (Negative); Nitrate,Urine Negative (Negative); Protein,Urine Negative (Negative); Specific Gravity, Urine <= 1.005 (1.005-1.030); Urobilinogen,Urine 0.2 EU/dl (0.2)
[2024-08-20 14:31] LABS: Bacteria,Urine Trace /lpf; Squamous Epithelial Cell,Urine Occasional #/hpf (0-5); WBC,Urine Occasional #/hpf (0-3)
== END 2024-08-20 15:28 | disposition home or self-care (01) ==
PROVIDERS: Physician Assistant; Emergency Provider Emergency Medicine; PCP Nurse Practitioner
DX: M25.551 Pain in right hip (principal); M25.462 Effusion, left knee; M79.604 Pain in right leg; T07.XXXA Unspecified multiple injuries, initial encounter; W19.XXXA Unspecified fall, initial encounter
CPT/HCPCS: 70450; 71250; 72125; 72128; 72131; 73552; 73562; 73590; 73610; 74176; 80053; 81001; 82550; 83735; 85025; 85610; 99285

== ENCOUNTER 2024-09-22 12:27 | Outpatient (CLI) | payer MEDICARE, SELFPAY ==
[2024-09-22 18:41] LABS: Basophils % 0.9 % (0.1-2.0); Eosinophils # 0.2 Kmm3 (0.0-0.4); Eosinophils % 4.3 % (0.1-12.0); Hematocrit 38.3 % (37.0-47.0); Hemoglobin 12.4 g/dL (12.2-16.2); Immature Granulocytes # 0.01 10^3uL; Immature Granulocytes % 0.3 %; Lymphocytes # 0.4 K/mm3 (0.7-4.5); Lymphocytes % 11.2 % (10-50); Mean Corpuscular HGB Conc 32.4 g/dL (31.8-35.4); Mean Corpuscular Hemoglobin 31.2 pg (27.0-31.2); Mean Corpuscular Volume 96.5 fl (81-99); Mean Platelet Volume 10.2 fl (7.4-10.4); Monocytes # 0.8 K/mm3 (0.1-1.0); Monocytes % 22.2 % (1.7-9.3); Neutrophils # 2.1 K/mm3 (1.8-7.8); Neutrophils % 61.1 % (37.0-80.0); Nucleated Red Blood Cells # 0 10^3/uL; Nucleated Red Blood Cells % 0 %; Platelet Count 254 K/mm3 (142-424); Red Blood Count 3.97 M/mm3 (4.20-5.40); Red Cell Distribution Width 13.5 % (11.5-17.5); Red Cell Distribution Width-SD 47.6 fL; White Blood Count 3.5 K/mm3 (4.8-10.8)
[2024-09-22 18:43] LABS: MANUAL DIFFERENTIAL MANUAL DIFFERENTIAL (MANUAL DIFF)
[2024-09-22 19:14] LABS: Alanine Aminotransferase 14 U/L (12-78); Albumin Level 4.3 g/dl (3.5-5.0); Albumin/Globulin Ratio 1.9 (1.1-1.8); Alkaline Phosphatase 103 U/L (38-126); Aspartate Amino Transferase 25 U/L (14-36); Bilirubin,Total 1.1 mg/dl (0.2-1.3); Blood Urea Nitrogen 14 mg/dl (7-17); Calcium 10.4 mg/dl (8.4-10.2); Carbon Dioxide 28 mmol/L (22.0-30.0); Chloride 100 mmol/L (98-107); Estimated Glomerular Filt Rate 95 ml/min (>60); GFR (African American) 115 ML/MIN (>60); Globulin 2.3 g/dL (1.3-3.2); Glucose 106 mg/dl (74-100); Sodium 138 mmol/L (136-145); Total Protein,Serum 6.6 g/dl (6.3-8.2)
[2024-09-22 19:46] LABS: Eosinophils % 3 % (0-3); Lymphocytes % 15 % (10-50); Monocytes % 12 % (2-9); Neutrophils % 55 % (42-76); Total Cells Counted 100
[2024-09-22 19:47] LABS: Platelet Estimate Normal; RBC Morphology Normal
--- OUTSIDE RECORDS SUMMARY | 2024-09-23 10:57 | XMS_ITS ---
Author Organization Unknown TREATMENT PLAN Planned Care Start Date Provider Encounter for Check-up [id number] [facility]
--- OUTSIDE RECORDS SUMMARY | 2024-09-23 10:57 | XMS_ITS | Continuity of Care Document ---
Author Name [facility] Organization [facility] Care Team Providers Care Working Supervisor Name Role Phone [facility] Unavailable Unavailable Immunizations Combined list of available immunizations from the Department of Defense and Veterans Affairs facilities. Immunization Series Date Given Administered By Site Reaction Lot Number CVX Code Drug Portal Developer Status Comments Source COVID-19 (MODERNA), MRNA, LNP-S, BIVALENT BOOSTER, PF, 50 MCG/0.5 ML OR 25MCG/0.25 ML DOSE 1 2022 RODRI PARSONS LEFT ARM [id number] complet ed [facility]
== END 2024-09-22 23:59 | disposition home or self-care (01) ==
LOC: LAB.DROPOF 09-23 10:55
PROVIDERS: PCP Nurse Practitioner; Visit Provider Nurse Practitioner
DX: K52.9 Noninfective gastroenteritis and colitis, unspecified (principal)
CPT/HCPCS: 80053; 85007; 85025

== ENCOUNTER 2024-12-16 10:03 | Outpatient (CLI) | payer MEDICARE, SELFPAY ==
--- OUTSIDE RECORDS SUMMARY | 2022-07-05 05:05 | XMS_ITS | Continuity of Care Document ---
Author Name [facility] Organization [facility] Care Team Providers Care Lumber Checker Name Role Phone [facility] Unavailable Unavailable Immunizations Combined list of available immunizations from the Department of Defense and Veterans Affairs facilities. Immunization Series Date Given Administered By Site Reaction Lot Number CVX Code Drug Electronic System Engineer Status Comments Source COVID-19 (MODERNA), MRNA, LNP-S, BIVALENT BOOSTER, PF, 50 MCG/0.5 ML OR 25MCG/0.25 ML DOSE 1 2022 RODRI PARSONS LEFT ARM [id number] complet ed [facility]E [facility], [facility]
[2024-12-16 17:17] LABS: Hematocrit 36.2 % (37.0-47.0); Hemoglobin 11.6 g/dL (12.2-16.2); Immature Granulocytes % 0.4 %; Mean Corpuscular HGB Conc 32.0 g/dL (31.8-35.4); Mean Corpuscular Hemoglobin 31.4 pg (27.0-31.2); Mean Corpuscular Volume 97.8 fl (81-99); Nucleated Red Blood Cells % 0 %; Platelet Count 235 K/mm3 (142-424); Red Blood Count 3.70 M/mm3 (4.20-5.40); Red Cell Distribution Width-SD 51.4 fL; White Blood Count 5.3 K/mm3 (4.8-10.8)
[2024-12-16 17:41] LABS: Albumin Level 4.5 g/dl (3.5-5.0); Chloride 104 mmol/L (98-107)
[2024-12-16 17:42] LABS: Potassium 4.3 mmoL/L (3.5-5.1); Sodium 139 mmol/L (136-145)
[2024-12-16 17:44] LABS: Alanine Aminotransferase 14 U/L (12-78); Anion Gap 13.3 mEq/L (5-15); Aspartate Amino Transferase 24 U/L (14-36); Blood Urea Nitrogen 17 mg/dl (7-17); Carbon Dioxide 26 mmol/L (22.0-30.0); Creatinine,Serum 0.60 mg/dl (0.52-1.04); Estimated Glomerular Filt Rate 95 ml/min (>60); GFR (African American) 115 ML/MIN (>60)
[2024-12-16 17:45] LABS: Albumin/Globulin Ratio 2.0 (1.1-1.8); Alkaline Phosphatase 87 U/L (38-126); Bilirubin,Total 0.7 mg/dl (0.2-1.3); Calcium 10.1 mg/dl (8.4-10.2); Cholesterol 140 mg/dl (140-200); Globulin 2.3 g/dL (1.3-3.2); Glucose 109 mg/dl (74-100); HDL Cholesterol 91 mg/dl (40-60); Total Protein,Serum 6.8 g/dl (6.3-8.2); Triglycerides 76 mg/dl (30-150)
[2024-12-16 18:14] LABS: 25-OH Vitamin D, Total 35.1 ng/mL (30-100)
[2024-12-16 18:19] LABS: Thyroid Stimulating Hormone 1.13 uIU/mL (0.465-4.68)
[2024-12-16 18:36] LABS: Hepatitis C Ab Qual. W/ RFX NEGATIVE (Negative)
[2024-12-16 19:14] LABS: Hemoglobin A1C 6.3 % (4.0-6.0)
[2024-12-16 20:28] LABS: Vitamin B12 289 pg/mL (239-931)
--- OUTSIDE RECORDS SUMMARY | 2024-12-17 10:12 | XMS_ITS | Encounter Summary ---
Author Organization [place] [address] Care Team Providers Care Circus Trainer Name Role Phone Fadi Christy MD Primary Care Provider [phone] Reason for Visit * Reason Onset Date Comments Reschedule 11/02/2024 Encounter Details Date Type Department Care Team (Late st Contact Info) Description 11/02/2024 Telephone [facility] [address] [place] [address] Lane Lo MD [address] [place] [address] Reschedule Social History Tobacco Use Types Packs/Day Years Used Date Smoking Tobacco: Never Smokeless Tobacco: Never Alcohol Use Standard Drinks/Week Comments No 0 (1 standard drink = 0.6 oz pur e alcohol) Comments No Sex and Gender Information Value Date Recorded Sex Assigned at Not on file Legal Sex Female 6:28 PM EDT Gender Identity Not on file Sexual Orientation Not on file documented as of this encounter Functional Status * Is the person deaf or does he/she have serious difficulty hearing? Answer Date of Assessment Author No 11/08/2015 11:42 AM EDT Shena Qiu RN * Is the person blind or does he/she have serious difficulty seeing even when wearing glasses? Answer Date of Assessment Author No 11/08/2015 11:42 AM EDT Shena Qiu RN * Does this person have serious difficulty walking or climbing stairs? Answer Date of Assessment Author No 11/08/2015 11:42 AM EDT Shena Qiu RN * Does this person have difficulty dressing or bathing? Answer Date of Assessment Author No 11/08/2015 11:42 AM EDT Shena Qiu RN * Because of a physical, mental or emotional condition, does this person have difficulty doing errands alone such as visiting a doctor's office or shopping? Answer Date of Assessment Author No 11/08/2015 11:42 AM EDT Shena Qiu RN documented as of this encounter Mental Status * Because of a physical, mental or emotional condition, does this person have serious difficulty concentrating, remembering or making decisions? Answer Entry Date Author No 11/08/2015 11:42 AM EDT Shena Qiu RN documented in this encounter Miscellaneous Notes * Telephone Encounter - Angela Laguerre - 11/02/2024 11:35 AM EDT Appointment reschedule HIPAA compliant voicemail left When the patient calls back please inform that appointment needed to be rescheduled. Old appointment MD/MONICA: Dr. Lo Date: 12/14/24 Time: 11am Location: [facility] New appointment MD/MONICA: Megha Moy Date: 12/21/24 Time: 1030am Location: [place] documented in this encounter Plan of Treatment Upcoming Encounters Date Type Department Care Team (Late st Contact Info) Description 12/21/2024 10:30 AM EDT Office Visit [facility] [address] Megha Wilder PA [address] [place] [address] documented as of this encounter Visit Diagnoses Not on filedocumented in this encounter Additional Health Concerns Assessment Noted Time A fall risk assessment has been complete d for the patient 01/06/2020 8:02 AM EDT documented as of this encounter Care Teams Circus Trainer Relationship Specialty Start Date End Date Fadi Christy MD [address] [place] [id number] PCP - General Family Medicine 09/06/14 documented as of this encounter
--- OUTSIDE RECORDS SUMMARY | 2024-12-17 10:12 | XMS_ITS | Clinical Summary ---
Author Organization [facility] Address [address] [place] [phone] Phone Care Team Providers Care Skate Boarder Name Role Phone Fadi Christy MD Primary Care Provider Allergies Active Allergy Reactions Criticality Noted Date Comments Amoxicillin (Bulk) Other (See Comments) Makes me loopy Codeine Other (See Comments) Makes me loopy/crazy Medications ascorbic acid, vitamin C, (VITAMIN C) 1,000 mg Oral Tablet Take 1,000 mg by mouth daily. Active aspirin 81 mg Oral Tablet, Chewable Take 1 Tab by mouth daily. 016 Active Cholecalciferol, Vitamin D3, 125 mcg (5,000 unit) Oral Tablet Take by mouth. Activ e ACETAMINOPHEN ORAL Take by mouth every 4 hours as needed for Pain. Active MULTIVITAMIN ORAL Take by mouth. Active artificial tear (TEARS) Opht Drops Apply 1 Drop to eye. Active famotidine (PEPCID) 20 mg Oral Tablet Take by mouth as needed for Heartburn. Active metFORMIN (GLUCOPHAGE) 500 mg Oral Tablet Take 1 Tab by mouth daily. 020 Active sertraline (ZOLOFT) 50 mg Oral Tablet Take 50 mg by mouth daily. 021 Active meclizine (ANTIVERT) 25 mg Oral Tablet 25 mg 3 times daily. 023 Active isosorbide mononitrate (IMDUR) 30 mg Oral Tablet Sustained Release 24 hr Take 1 Tablet by mouth every morning. 30 Tablet 11 024 Active Additional Information Patient not taking.Reason: Therapy Completed, Reported on 06/01/2024 amLODIPine (NORVASC) 2.5 mg Oral Tablet Take 1 Tablet by mouth daily. 90 Tablet 3 025 Active apixaban (ELIQUIS) 5 mg Oral Tablet Take 1 Tablet by mouth 2 times daily. 180 Tablet 3 025 Active fUROsemide (LASIX) 20 mg Oral Tablet Take 1 Tablet by mouth every other day. 45 Tablet 3 025 Active lisinopriL (PRINIVIL;ZESTRIL) 10 mg Oral Tablet Take 1 Tablet by mouth 2 times daily. 180 Tablet 3 025 Active simvastatin (ZOCOR) 10 mg Oral TabletIndications:ASHD (arteriosclerotic heart disease),Essential hypertension,Pure hypercholesterolemia Take 1 Tablet by mouth nightly. 90 Tablet 3 025 Active Active Problems Problem Noted Date Diagnosed Date Elevated troponin 07/08/2020 Paroxysmal A-fib 07/08/2020 LOC (loss of consciousness) 08/25/2018 Pure hypercholesterolemia 03/27/2017 ASHD (arteriosclerotic heart disease) 10/31/2015 Type 2 diabetes mellitus with complication 10/30 DDD (degenerative disc disease) Diverticulosis Essential hypertension Resolved Problems Problem Noted Date Diagnosed Date Resolved Date Unstable angina 07/10/2020 08/26/2020 Chest pain 07/08/2020 08/26/2020 Essential hypertension 11/25/201511/24 HTN (hypertension) 6 Encounters Date Type Department Care Team Description 11/02/2024 Telephone [facility] [address] [id number] [address] Lo MD Reschedule 10/28/2024 Telephone [facility] [address] [phone] Lane Lo MD Reschedule from Last 3 Months Surgical History Surgery Date Site/Laterality Comments HYSTERECTOMY 04/30/1974 total APPENDECTOMY 04/30/1949 EYE SURGERY inplant CARDIAC SURGERY 2 stents Medical History Medical History Date Comments High blood pressure CAD (coronary artery disease) Hyperlipidemia Family History Medical History Relation Name Comments Diabetes Brother 3x Heart Disease Father High Blood Pressure Father Heart Attack Maternal Grandfather High Blood Pressure Maternal Grandmother Osteoporosis Maternal Grandmother Diabetes Mother Severe DM High Blood Pressure Mother Osteoporosis Mother High Blood Pressure Paternal Grandfather High Blood Pressure Paternal Grandmother Osteoporosis Paternal Grandmother Diabetes Sister Relation Name Status Comments Brother Father Maternal Grandfather Maternal Grandmother Mother Paternal Grandfather Paternal Grandmother Sister Social History Tobacco Use Types Packs/Day Years Used Date Smoking Tobacco: Never Smokeless Tobacco: Never Tobacco Cessation:Counseling Given: Not Answered Alcohol Use Standard Drinks/Week Comments No 0 (1 standard drink = 0.6 oz pur e alcohol) Comments No Sex and Gender Information Value Date Recorded Sex Assigned at Not on file Legal Sex Female 6:28 PM EDT Gender Identity Not on file Sexual Orientation Not on file Obstetrics History Last Filed Vital Signs Vital Sign Reading Time Taken Comments Blood Pressure 118/76 06/01/2024 11:02 AM EST Pulse 92 06/01/2024 11:02 AM EST Temperature 36.3 C (97.3 F) 08/26/2020 12:03 PM EDT Respiratory Rate 16 07/10/2020 5:14 PM EDT Oxygen Saturation 97% 04/04/2022 10:53 AM EST Inhaled Oxygen Concentration - - Weight 77.7 kg (171 lb 3.2 oz) 06/01/2024 11:02 AM EST Height 157.5 cm (5' 2 ) 09/16/2023 10:35 AM EDT Body Mass Index 31.31 09/16/2023 10:35 AM EDT Plan of Treatment Upcoming Encounters Date Type Department Care Team (Late st Contact Info) Description 12/21/2024 10:30 AM EDT Office Visit [facility] [address] [place] [phone] Megha Wilder PA [address] [place] [phone] Health Maintenance Due Date Last Done Comments Wellness Exam Medicare 1943 Diabetic Eye Exam 1956 DTaP/TDaP/Td (1 - Tdap) 1957 Kidney Health: uACR 07/09/2021 07/09/2020, 9 COVID-19 Vaccine ( season) 2024 02/05/2024, 07/05/2022, 01/31/2022, Additional history exists Influenza Vaccine (#1) 2024 , 01/17/2023, 02/15/2021, Additional history exists Hemoglobin A1c 01/17/2025 07/17/2024, 11/3 , 08/22/2020, Additional history exists Kidney Health: eGFR 07/17/2025 07/17/2024, 07/09/2020, 07/08/2020, Additional history exists Lipids 07/17/2025 07/17/2024, 11/0 09/2022, 07/09/2020, Additional history exists Bone Density Screening Completed 02/23/2015 Pneumococcal Vaccine 50+ Completed 09/28/2022, 03/29 RSV or 60+ Completed 01/26/2023 Zoster Completed 07/13/2024, 10/28, 04/08/2009 Hepatitis B Vaccine Aged Out No longe r eligible based on patient's age to complete this topic Meningococcal B Vaccine Aged Out No l onger eligible based on patient's age to complete this topic Medical Devices Implanted Type Area Electric Switch Repairer Device Identifier Shelf Expiration Date Model / Serial / Lot Stent [employer]ience Alpine Drug Eluting 3.0mm X 12mm - [id number] Implanted:Qty : 1 on 10/30/[address] Lo MD at [facility] N/A: [employer] [facility]:VASC DEV [id number] Procedures Procedure Name Priority Date/Time Associated Diagnosis Comments COMPREHENSIVE METABOLIC PANEL Routine 07/17/2024 9:29 AM EDT ASHD (arteriosclerotic heart disease) Essential hypertension Paroxysmal A-fib (HCC) Pure hypercholesterolemia LIPID SCREEN Routine 07/17/2024 9:29 AM EDT ASHD (arteriosclerotic heart disease) Essential hypertension Paroxysmal A-fib (HCC) Pure hypercholesterolemia HEMOGLOBIN A1C Routine 07/17/2024 9:29 AM EDT ASHD (arteriosclerotic heart disease) Essential hypertension Paroxysmal A-fib (HCC) Pure hypercholesterolemia Abnormal finding of blood chemistry, unspecified MICROALBUMIN/CREATI NINE RATIO URINE Routine 07/09/2020 1:55 AM EST DX BONE DENSITY AXIAL SKELETON Routine 02/23/2015 8:05 AM EDT Osteoporosis from Last 3 Months or Most Recently Relevant to Health Maintenance Results * (ABNORMAL) HEMOGLOBIN A1C (07/17/2024 9:29 AM EDT) Hgb A1C 6.3(H) 4.2 - 5.6 % 07/17/2024 4:32 PM EDT [facility] Est. Avg Glucose 134 mg/dL 07/17/2024 4:32 PM EDT [facility] Blood VENOUS BLOOD / Unknown Venipuncture / Unknown 07/17/2024 9:29 AM EDT 07/17/2024 9:29 AM EDT Narrative [facility] - 07/17/2024 4:32 PM EDT REFERENCE RANGE: Normal: 4.0-5.6% Pre-diabetes: 5.7-6.4% Provisional diagnosis of diabetes: >6.4% Hgb F>10% and anything which shortens red cell survival, such as hemolytic anemia, or unstable hemoglobin variants such as HbSS, HbSC, or HbCC, will lower the HbA1c value associated with a given level of glycemic control. us Lane Lo MD CHEMISTRY ORDERABLES Final R esult [facility] [address] [facility] , [place] [address] [facility] [address] [place] [address] * LIPID SCREEN (07/17/2024 9:29 AM EDT) Cholesterol 142 <200 mg/dL 07/17/2024 3:40 PM EDT [facility] [facility] Comment: < 200 Desirable 200 - 239 Borderline High >= 240 High Triglyceride 102 <150 mg/dL 07/17/2024 3:40 PM EDT [facility] [employer] Comment: < 150 Normal 150 - 199 Borderline High 200 - 499 High >= 500 Very High HDL 70 >=40 mg/dL 07/17/2024 3:40 PM EDT [facility] Comment: > 60 Optimal 40 - 60 Acceptable < 40 Low LDL Calculated 54 <100 mg/dL 07/17/2024 3:40 PM EDT [facility] Comment: < 100 Optimal 100 - 129 Near or above optimal 130 - 159 Borderline High 160 - 189 High >= 190 Very High The National Institutes of Health (NIH) equation is used for all lipid panels that report calculated LDL (LDL-C). Non-HDL-C Calculated 72 <=129 mg/dL 07/17/2024 3:40 PM EDT [facility] Comment: <130 Desirable 130-159 Above Desirable 160-189 Borderline High 190-219 High >= 220 Very High Fasting Specimen? Yes None 025 3:40 PM EDT [facility] Blood VENOUS BLOOD / Unknown Venipuncture / Unknown 07/17/2024 9:29 AM EDT 07/17/2024 9:[address] Lo MD CHEMISTRY ORDERABLES Final R esult [facility] [employer] [address] [facility] , [place] [address] [facility] [address] [place] [phone] * (ABNORMAL) COMPREHENSIVE METABOLIC PANEL (07/17/2024 9:29 AM EDT) Sodium 140 136 - 145 mmol/L 07/17/2024 3:40 PM EDT [facility] Potassium 3.9 3.5 - 5.0 mmol/L 07/17/2024 3:40 PM EDT [facility] Chloride 101 98 - 107 mmol/L 07/17/2024 3:40 PM EDT [facility] Total CO2 25 22 - 29 mmol/L 07/17/2024 3:40 PM EDT [facility] Anion Gap 14 7 - 16 mmol/L 07/17/2024 3:40 PM EDT [facility] Calcium 10.4 8.8 - 10.4 mg/dL 07/17/2024 3:40 PM EDT [facility] Glucose Lvl 112(H) 70 - 99 mg/dL 07/17/2024 3:40 PM EDT [facility] BUN 13 8 - 23 mg/dL 07/17/2024 3:40 PM EDT [facility] Creatinine 0.69 0.51 - 1.30 mg/dL 07/17/2024 3:40 PM EDT [facility] Albumin 4.7(H) 3.2 - 4.6 gm/dL 07/17/2024 3:40 PM EDT [facility] Total Protein 7.4 6.4 - 8.3 gm/dL 07/17/2024 3:40 PM EDT [facility] Bili Total 0.7 0.2 - 1.3 mg/dL 07/17/2024 3:40 PM EDT [facility] ALT 12 <=41 U/L 07/17/2024 3:40 PM EDT [facility] AST 17 <=40 U/L 07/17/2024 3:40 PM EDT [facility] Alk Phos 101 36 - 123 U/L 07/17/2024 3:40 PM EDT [facility] eGFR (CKD-EPIcr 2020) 85 >=60 mL/min/1.7 3 m2 07/17/2024 3:40 PM EDT [facility] Comment:Estimated GFR was ca lculated using the CKD-EPIcr (2020) equation refit without race. The equation is recommended by the National Kidney Foundation - [place] Society of Nephrology Task Force. Blood VENOUS BLOOD / Unknown Venipuncture / Unknown 07/17/2024 9:29 AM EDT 07/17/2024 9:[address] Lo MD CHEMISTRY ORDERABLES Final R esult Performing Organization Address [facility] Co de Phone Number [employer] [address] , [place] [address] * MICROALBUMIN/CREATININE RATIO URINE (07/09/2020 1:55 AM EST) Pathologist [facility] Urine Microalb <12.0 mg/L 07/09/2020 2:41 AM EST [facility] [employer] Urine Creatinine 50.3 mg/dL 07/10/19 2:41 AM EST [employer] [facility] Ur Microalb/Creat 021 2:41 AM EST [facility] [employer] [facility] Comment: Because the albumin level is below the level of detection in this urine specimen, the laboratory is unable to calculate a reliable albumin/creatinine ratio. Microalbuminuria is unlikely if the urine albumin concentration is less than 20- 30 mg/L in a random specimen. Urine STRUCTURE OF URINARY TRACT PROPER / Unknown 07/09/2020 1:55 AM EST 07/09/2020 2:01 AM EST Melvin Stiles MD URINE ORDERABLES Final Result Performing Organization Address [facility] de Phone Number [facility] [employer] [address] , [place] [address] * DX BONE DENSITY AXIAL SKELETON (02/23/2015 8:05 AM EDT) Anatomical Region Laterality Modality Dexa Scan 02/23/2015 Narrative 02/25/2015 10:36 AM EDT Indication: The patient is a post-menopausal female over age 65 with clinical risk factors for an osteoporotic fracture that requires a bone density assessment. Study was performed on [employer] (Inspect Manager). Bone Density: Region BMD T-score Z-score Femoral Neck (Left) 0.693 -1.4 0.7 Total Hip (Left) 0.799 -1.2 0.7 Femoral Neck (Right) 0.706 -1.3 0.9 Total Hip (Right) 0.737 -1.7 0.2 1/3 Radius (Left) 0.562 -2.2 0.5 World Health Organization criteria for BMD interpretation classify patients as: Normal (T-score at or above -1.0), Low Bone Density (T-score between -1.0 and -2.5), or Osteoporotic (T-score at or below -2.5). T Scores are reported in Postmenopausal women and in men age 50 and older. Z-scores are reported in females prior to menopause and in males younger than age 50. 10-year Fracture Risk(1): Major Osteoporotic Fracture 11% Hip Fracture 2.1% Reported Risk Factors: [place] (), Neck BMD=0.693, BMI=32.9 (1) FRAX(R) Version 3.01. Fracture probability calculated for an untreated patient. Fracture probability may be lower if the patient has received treatment. Clinical Information Provided by Patient: Has used the following medications: Vitamin D, Diuretic Patient maximum height was 63.0 postmenopausal Interpretation: Bone mineral density is in the low bone density range. Medical evaluation for secondary causes of low bone mineral density may be appropriate. A minimum of two years may be required between bone density studies due to inherent testing precision limitations. Intervals between BMD testing should be determined according to each patient's clinical status: typically one year after initiation or change in therapy is appropriate, with longer intervals once therapeutic effect is established. The spine portion of the study is omitted due to hypertrophic change and scoliosis. Reported by: Odalys Hawkins PA-C, [facility], CCD on 02/23/2015 12:19:00 PM. Venkatesh Frazier MD IMG DEXA ORDERABLES Fin al Result from Last 3 Months or Most Recently Relevant to Health Maintenance Insurance [facility] MEDICARE PPO MR [employer] MEDICARE PPO MR * Guarantor: Penny Ochoa Account Type Relation to Patient Date of Phone Billing Address [place] Personal Family Self Advance Directives For more information, please contact: [phone] * Full Code (Latest Code Status on File) Date Activated Date Inactivated Comments 07/08/2020 6:16 PM 07/10/2020 9:50 PM * DNR Date Activated Date Inactivated Comments 08/25/2018 6:56 PM 08/26/2018 9:02 PM Question Answer Comments This treatment plan has been discussed with and agreed upon by: Patient * Full Code Date Activated Date Inactivated Comments 08/24/2018 9:38 PM 08/25/2018 6:56 PM * Full Code Date Activated Date Inactivated Comments 11/01/2015 9:01 AM 11/01/2015 4:32 PM Care Teams Skate Boarder Relationship Specialty Start Date End Date Fadi Christy MD [address] [place] [address] [address] [place] [phone] PCP - General Family Medicine 09/06/14
--- OUTSIDE RECORDS SUMMARY | 2024-12-17 10:12 | XMS_ITS | Encounter Summary ---
Author Organization [place] [address] Care Team Providers Care Huller Operator Name Role Phone Fadi Christy MD Primary Care Provider [phone] Reason for Visit * Reason Onset Date Comments Reschedule 10/28/2024 Encounter Details Date Type Department Care Team (Late st Contact Info) Description 10/28/2024 Telephone [facility] [address] [phone] Lane Lo MD [address] [place] [address] [place] [address] Reschedule Social History Tobacco Use Types Packs/Day [...] encounter Miscellaneous Notes * Telephone Encounter - Kell Faith RMA - 10/28/2024 11:31 AM EDT Called patient, call was answered and no one spoke. Attempted to call back twice and line was busy. documented in this encounter Plan of Treatment Upcoming Encounters Date Type Department Care Team (Late st Contact Info) Description 12/21/2024 10:30 AM EDT Office Visit [facility] [address] [address] Megha Wilder PA [address] [place] [phone] documented as of this encounter Visit Diagnoses Not on filedocumented in this encounter Additional Health Concerns Assessment Noted Time A fall risk assessment has been complete d for the patient 01/06/2020 8:02 AM EDT documented as of this encounter Care Teams Huller Operator Relationship Specialty Start Date End Date aFdi Christy MD [address] [place] [phone] PCP - General Family Medicine 09/06/14 documented as of this encounter
--- OUTSIDE RECORDS SUMMARY | 2024-12-17 10:12 | XMS_ITS | Clinical Summary ---
Author Organization [facility] Address [address] [facility] [address] [place] [id number] Phone Care Team Providers Care Intern Retail Name Role Phone Seda GONZALEZ, Seng [facility] [phone] Conditions or Problems No information available. Medications No information available. Medications Administered No information available. Allergies, Adverse Reactions, Alerts No information available. Results No information available. Plan of Care No information available. Procedures No information available. Vital Signs No information available. Immunizations No information available. Advance Directives No information available.
== END 2024-12-16 23:59 | disposition home or self-care (01) ==
LOC: LAB.DROPOF 12-17 10:10
PROVIDERS: PCP Nurse Practitioner; Visit Provider Nurse Practitioner
DX: E78.5 Hyperlipidemia, unspecified (principal); E11.9 Type 2 diabetes mellitus without complications; I48.91 Unspecified atrial fibrillation; I25.10 Atherosclerotic heart disease of native coronary artery without angina pectoris; E53.8 Deficiency of other specified B group vitamins; E55.9 Vitamin D deficiency, unspecified; I11.0 Hypertensive heart disease with heart failure; I50.9 Heart failure, unspecified; Z11.59 Encounter for screening for other viral diseases
CPT/HCPCS: 80053; 80061; 82043; 82306; 82570; 82607; 83036; 84443; 85025; 86803; 87389

== ENCOUNTER 2025-01-24 11:55 | Emergency (ER) | payer MEDICARE, SELFPAY ==
--- OUTSIDE RECORDS SUMMARY | 2023-02-13 04:40 | XMS_ITS | Continuity of Care Document ---
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 Name Role Phone Yue OD, Juliana Unavailable Unavailable Allergies, Adverse Reactions, Alerts Substance Reaction Status Criticality codeine Active No Information Medications Medication Instructions Dosage Effective Dates (start - stop) Status Comments furosemide 20 mg tablet take 1 tablet by oral route every day 20 MG - Active sertraline 50 mg tablet take 1 tablet by oral route every day 50 MG - Active metformin 500 mg tablet take 1 tablet by oral route 2 times every day with morning and evening meals 500 MG - Active Eliquis 5 mg tablet take 1 tablet by oral route 2 times every day 5 MG - Active Vitamin D3 5,000 unit tablet take 1 tablet by oral route every day 1 tablet - Active metoprolol succinate ER 25 mg tablet,extended release 24 hr take 1 tablet by oral route every day 25 MG - Active amlodipine 2.5 mg tablet take 1 tablet by oral route every day 2.5 MG - Active simvastatin 20 mg tablet take 1 tablet by oral route every day in the evening 20 MG - Active aspirin 81 mg tablet,delayed release take 1 tablet by oral route every day 81 MG - Active Tylenol Extra Strength 500 mg tablet take 2 tablet by oral route every 6 hours as needed 1000 MG - Active Calcium 600 600 mg (1,500 mg) tablet take 1 Tablet by Oral route 2 times every day 1 Tablet - Active Vitamin C 500 mg tablet take 1 Tablet by Oral route every day 1 Tablet - Active lisinopril-hydroc hlorothiazide 20 mg-12.5 mg tablet take 1 tablet by oral route every day 1.00 tablet - Active Artificial Tears Eye Drops instill 1 Drop by Ophthalmic route 2 times every day as needed 1 Drop - Active Daily Multi-Vitamin Tab take 1 tablet by oral route every day with food - Active Brilinta 90 mg tablet take 1 tablet by oral route every day 90 MG - No Longer Active potassium gluconate 550 mg (90 mg) tablet take 0.5 tablet by oral route every day 0.5 tablet - No Longer Active STOOL SOFTENER (unknown strength) take 1 capsule by oral route every day at bedtime as needed Not Available - No Longer Active Vitamin B-12 1,000 mcg tablet take 1 Tablet by Oral route every day 1 Tablet - No Longer Active Procedures Procedure Date Refraction OFFICE/OUTPATIENT VISIT, EST, Low OFFICE/OUTPATIENT VISIT, EST, Low OFFICE/OUTPATIENT VISIT, EST OFFICE/OUTPATIENT VISIT, EST Eye Exam Established Patient Comprehensi ve 1 Or More Visits Eye Exam Established Patient Comprehensi ve 1 Or More Visits Eye Exam Established Patient Comprehensi ve 1 Or More Visits Eye Exam Established Patient Comprehensi ve 1 Or More Visits EYE EXAM & TREATMENT EYE EXAM & TREATMENT Advance Directives Directive Yes / No Effective Date File Name No Information Encounters Encounter Description Practice Location Reason(s) For Visit Diagnoses Date Provider Providers Copied on Encounter OFFICE/OUTPA TIENT VISIT, EST, [facility], [address] [place], [address], tel:[phone] [facility] comprehensive eye exam (chief complaint) Age-related nuclear cataract, right eyeCortical age-related cataract, right eyeDry eye syndrome of bilateral lacrimal glandsPresence of intraocular lensOther iris atrophyOther disorders of refractionType 2 diabetes mellitus without complications 3 Yue Andrews. [address] [place], [place], [id number], [place]. tel:[phone] Referring Provider: Juliana Turner, [address] [place], [address] . tel:[phone] OFFICE/OUTPA TIENT VISIT, EST, [facility], [address] [place], [address], [place] tel:[phone] [facility] [address] 1 year CEE (chief complaint) Cortical age-related cataract of right eyeNuclear age-related cataract, right eyePseudophakiaP unctate keratitis, bilateralMGD of right eye, upper and lower eyelidsMGD of left eye, upper and lower eyelids 1 Iris Charles. [address] [place] [address] Road, [address], [place], [place], [id number], . tel:[phone] Referring Provider: Melvin Boland, [address] [place] [address] [address], [place], [place], [address] [place] [address] . tel:[phone] OFFICE/OUTPA TIENT VISIT, EST [facility], [address] [place], [address], [place] tel:[phone] [facility] double vision (chief complaint) Diplopia 9 Iris Charles. [address] [place] [address], [address], [place], [place], [id number], . tel:[phone] Referring Provider: Melvin Boland, [address] [place] [address] Road [address], [place], [place], [address] [place] [address] . tel:[phone] OFFICE/OUTPA TIENT VISIT, EST [facility], [address] [place], [address], [place] tel:[phone] [facility] Comprehensive exam (chief complaint) Cortical age-related cataract of right eyeNuclear age-related cataract, right eyePseudophakia 8 Iris Charles. [address] [place] [address], [address], [place], [place], [id number], . tel:[phone] Referring Provider: No Ref Doc No Referring Doc. [facility], [address] [place], [address], [place] tel:[phone] [facility] blurry vision (chief complaint) PseudophakiaNucl ear age-related cataract, right eye Sep-2 7-201 6 Iris Charles. [address], [address], [place], [place], [id number], [place]. tel:[phone] Referring Provider: No Ref Doc No Referring Doc. [facility], [address] [facility], [place], [address], [place] tel:[phone] [facility] Cortical age-related cataract of right eyeNuclear age-related cataract, right eyePseudophakia Sep- 6 Iris Charles. [address], [address], [place], [place], [id number], [place]. tel:[phone] [facility], [address] [facility], [place], [address], [place] tel:[phone] [facility] Comprehensive Exam (chief complaint) No Information Dec-0 5 Iris Charles. [address], [address], [place], [place], [id number], [place]. tel:[phone] Referring Provider: No Ref Doc No Referring Doc. [facility], [address] [facility], [place], [address], [place] tel:[phone] [facility] Comprehensive Eye Exam (chief complaint) No Information 4 Iris Charles. [address], [address], [place], [place], [id number], [place]. tel:[phone] [facility], [address] [place], [address], [place] tel:[phone] [facility] No Information 3 Iris Charles. [address] [place] [address] Road, [address], [place], [place], [id number], [place]. tel:[phone] [facility], [address] [place], [address], [place] tel:[phone] [facility] No Information 2 Iris Charles. [address], [address], [place], [place], [id number], [place]. tel:[phone] [facility], [address], [place], [address], [place] tel: [phone] [facility] No Information 2 Iris Charles. [address] [place] [address], [address], [place], [place], [id number], . tel:[phone] [facility], [address], [place], [address], [place] tel: [phone] [facility] No Information 1 Iris Charles. [address] [facility] [address] [facility], [address], [place], [place], [id number], [place]. tel:[phone] Family History Family Member Type Diagnosis Age At Onset Brother Problem (finding) glaucoma Father Problem (finding) cataract Brother Problem (finding) Family history unknown Sister Problem (finding) Family history unknown Mother Problem (finding) HBP Brother Problem (finding) Maternal history of jazmine betes mellitus Mother Problem (finding) cataract Mother Problem (finding) Maternal history of jazmine betes mellitus Sister Problem (finding) cataract Problem (finding) No family history of Re tinal disease Payers Payer name Insurance type Covered constitution party ID Authoriza tion(s) [employer] [id number] Social History Type Description Quantity Date Captured Comments Alcohol Use Details No Caffeine Use Details Unknown Tobacco Use Status Current non-smoker Smoking Status Never smoker Non-Smoking Tobacco Use Details : No Details Available : No Details Available Sex Female Chief Complaint And Reason For Visit From encounter dated '02/13/2023 08:40'. comprehensive eye exam (chief complaint). Description: The 82 year old patient presents for evaluation of comprehensive eye exam in the right and left eyes. Pt VA stable since last OV OS, but thinks it has declined in the right eye. Pt c/o of recent diplopia in the right eye, as she states if she closes the right eye the diplopia goes away - states it has affected her driving occasionally. Pt c/o occasional blurriness, thinks that it may be the cataract forming. Pt denies any pain, discomfort, flashes of light, or floaters OU.Meds: Pt using drops and tolerating them well. PFAT's prn.+Refraction Reason For Referral Reason For Referral No Information Plan Of Treatment Date Type Action Status Goal Tobacco cessation counseling completed Patient Education Standard eye exam: [facility]l [facility]~ completed Patient Education Artificial Tears Eye Dr carter completed History Of Present Illness Encounter Date Complaint History Of Prese nt Illness comprehensive eye exam The 82 ye ar old patient presents for evaluation of comprehensive eye exam in the right and left eyes. Pt VA stable since last OV OS, but thinks it has declined in the right eye. Pt c/o of recent diplopia in the right eye, as she states if she closes the right eye the diplopia goes away - states it has affected her driving occasionally. Pt c/o occasional blurriness, thinks that it may be the cataract forming. Pt denies any pain, discomfort, flashes of light, or floaters OU.Meds: Pt using drops and tolerating them well. PFAT's prn.+Refraction 1 year CEE The 79 year old female presents for evaluation of 1 year CEE in the right and left eyes. Pt states VA is pretty good. Pt had covid last year and was unable to come for last o/v. Pt is now diabetic due covid complications. Pt states OS sometimes stings with cool wind or katie conditions. Pt states At's have helped with symptoms. Pt denies any redness, headaches, flashes, floaters, or difficulty with treatment plan. BS= 97 this AM, A1C= 5.8 about a year ago. double vision The 78 year old female presents for evaluation of double vision in the left eye that happened on Saturday. After taking a long nap she woke up and it was fine. Patient denies any eye pain, flashes, and floaters. Pt is using Refresh plus PRN. Comprehensive exam The 77 year o ld female presents for evaluation of Comprehensive exam in the right and left eyes. Patient denies eye pain, floaters and flashes. Vision has been great since last visit. blurry vision The 75 year old female presents for evaluation of blurry vision in the left eye. It started about 6 month(s) ago. The onset was gradual. The patient describes it as decrease in both near and distance vision. It happens all of the time. Comprehensive Exam The 74 year o ld female presents for evaluation of Comprehensive Exam in the right and left eyes. Patient denies change in vision. Comprehensive Eye Exam The 73 ye ar old female presents for evaluation of Comprehensive Eye Exam Patient denies change in vision. Functional Status Date Functional Assessmen t No Information Instructions Date Instruction Additional Infor marcellus Impression/Plan Impression/Plan Impression/Plan Impression/Plan - Patient aware that a change in glasses prescription would not improve vision. Patient will continue with same glasses. NPAT s prn Related to See impression details - Return - 1 year Related to See impression details - Return in 1 year Related to Se e impression details - Discussed cataract s with patient. Patient feels cataracts are not significantly affecting their vision and chooses not to proceed with cataract surgery. Related to See impression details - Discussed cataract s with patient. Patient feels cataracts are not significantly affecting their vision and chooses not to proceed with cataract surgery. Educational materials provided:Primary Diagnosis. do Not dilate OS, circlage suture in place. Related to See impression details - Return in 1 year Related to Se e impression details - CORTICAL SENILE CA TARACT- SENILE NUCLEAR CATARACT- LENS REPLACEMENT NEC - Discussed cataracts with patient. Patient feels cataracts are not significantly affecting their vision and chooses not to proceed with cataract surgery. Educational materials provided:Primary Diagnosis. iris cerclage'' suture os. Ret 1 year Related to See impression: general plan CORTICAL SENILE LASHON RACT OD LENS REPLACEMENT NEC OS - Cataracts account for the patient's complaints. No treatment currently recommended. The patient will monitor vision changes and contact us with any decrease in vision. 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
--- OUTSIDE RECORDS SUMMARY | 2024-12-21 10:30 | XMS_ITS | Encounter Summary ---
Author Organization [place] [address] Care Team Providers Care Business Analyst Ecommerce Name Role Phone Fadi Christy MD Primary Care Provider [phone] Reason for Visit * Reason Comments Follow-up Yearly Encounter Details Date Type Department Care Team (Late st Contact Info) Description 12/21/2024 10:30 AM EDT Office Visit [facility] [address] [place] [address] Megha Wilder PA [address] [place] [address] ASHD (arteriosclerotic heart disease) (Primary Dx); Essential hypertension; Pure hypercholesterolemia; Chronic atrial fibrillation (HCC); Chronic heart failure with preserved ejection fraction (HCC) Social History Tobacco Use Types Packs/Day Years Used Date Smoking Tobacco: Never Passive Smoke Exposure: Never Smokeless Tobacco: Never Tobacco Cessation:Counseling Given: Not Answered Alcohol Use Standard Drinks/Week Comments No 0 (1 standard drink = 0.6 oz pur e alcohol) Sexually Active Control Partners Comments Not Currently Post-menopausal Male Comments No Sex and Gender Information Value Date Recorded Sex Assigned at Not on file Legal Sex Female 6:28 PM EDT Gender Identity Not on file Sexual Orientation Not on file documented as of this encounter Last Filed Vital Signs Vital Sign Reading Time Taken Comments Blood Pressure 148/92 12/21/2024 10:09 AM EDT Pulse 88 12/21/2024 10:09 AM EDT Temperature - - Respiratory Rate - - Oxygen Saturation - - Inhaled Oxygen Concentration - - Weight 76.8 kg (169 lb 6.4 oz) 12/21/2024 10:09 AM EDT Height 157.5 cm (5' 2 ) 12/21/2024 10:09 AM EDT Body Mass Index 30.98 12/21/2024 10:09 AM EDT documented in this encounter Functional Status * Is the [...] Entry Date Author No 11/08/2015 11:42 AM Shena Lou RN documented in this encounter Progress Notes * Megha Wilder PA - 12/21/2024 10:30 AM EDT Chief Complaint Patient presents with Follow-up Yearly HPI: Penny Ochoa returned to the office for routine follow up for CAD, HTN, HLD, HFpEF, chronic A Fib. She reports dong well lately, her only concern is bilateral knee pain. 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 She reports being compliant with her medications. She denies signs of bleeding such as hematuria, hematochezia, melena, excessive bruising. ROS: Denies chest pain, dyspnea/orthopnea/PND, cough, weight changes, palpitations, dizziness, syncope, edema, fever/chills, abdominal pain, N/V, hematochezia, melena Allergies Allergen Reactions Amoxicillin (Bulk) Other (See Comments) Makes me loopy Codeine Other (See Comments) Makes me loopy/crazy Current Outpatient Medications: ACETAMINOPHEN ORAL, Take by mouth every 4 hours as needed for Pain., Disp: , Rfl: amLODIPine (NORVASC) 2.5 mg Oral Tablet, Take 1 Tablet by mouth daily., Disp: 90 Tablet, Rfl: 3 apixaban (ELIQUIS) 5 mg Oral Tablet, Take 1 Tablet by mouth 2 times daily., Disp: 180 Tablet, Rfl: 3 artificial tear (TEARS) Opht Drops, Apply 1 Drop to eye., Disp: , Rfl: ascorbic acid, vitamin C, (VITAMIN C) 1,000 mg Oral Tablet, Take 1,000 mg by mouth daily. , Disp: ,Rfl: aspirin 81 mg Oral Tablet, Chewable, Take 1 Tab by mouth daily., Disp: , Rfl: Cholecalciferol, Vitamin D3, 125 mcg (5,000 unit) Oral Tablet, Take by mouth., Disp: , Rfl: famotidine (PEPCID) 20 mg Oral Tablet, Take by mouth as needed for Heartburn., Disp: , Rfl: fUROsemide (LASIX) 20 mg Oral Tablet, Take 1 Tablet by mouth every other day., Disp: 45 Tablet, Rfl: 3 lisinopriL (PRINIVIL;ZESTRIL) 10 mg Oral Tablet, Take 1 Tablet by mouth 2 times daily., Disp: 180 Tablet, Rfl: 3 meclizine (ANTIVERT) 25 mg Oral Tablet, 25 mg 3 times daily., Disp: , Rfl: metFORMIN (GLUCOPHAGE) 500 mg Oral Tablet, Take 1 Tab by mouth daily., Disp: , Rfl: MULTIVITAMIN ORAL, Take by mouth., Disp: , Rfl: sertraline (ZOLOFT) 50 mg Oral Tablet, Take 50 mg by mouth daily., Disp: , Rfl: simvastatin (ZOCOR) 10 mg Oral Tablet, Take 1 Tablet by mouth nightly., Disp: 90 Tablet, Rfl: 3 isosorbide mononitrate (IMDUR) 30 mg Oral Tablet Sustained Release 24 hr, Take 1 Tablet by mouth every morning. (Patient not taking: Reported on 12/21/2024), Disp: 30 Tablet, Rfl: 11 Past Medical History: Diagnosis Date CAD (coronary artery disease) High blood pressure Hyperlipidemia Past Surgical History: Procedure Laterality Date APPENDECTOMY 04/30/1949 CARDIAC SURGERY 2 stents EYE SURGERY inplant HYSTERECTOMY 04/30/1974 total Family History Problem Relation Age of Onset High Blood Pressure Father Heart Disease Father Diabetes Mother Severe DM High Blood Pressure Mother Osteoporosis Mother Diabetes Brother 3x Diabetes Sister High Blood Pressure Maternal Grandmother Osteoporosis Maternal Grandmother Heart Attack Maternal Grandfather High Blood Pressure Paternal Grandmother Osteoporosis Paternal Grandmother High Blood Pressure Paternal Grandfather Lab Results Component Value Date HGB 12.7 07/17/2024 HCT 40.4 07/17/2024 PLT 266 07/17/2024 CHOLESTEROL 142 07/17/2024 TRIG 102 07/17/2024 HDL 70 07/17/2024 LDLCALC 54 07/17/2024 ALT 12 07/17/2024 AST 17 07/17/2024 NA 140 07/17/2024 K 3.9 07/17/2024 CREATININE 0.69 07/17/2024 BUN 13 07/17/2024 CO2 25 07/17/2024 TSH 0.734 07/17/2024 INR 1.11 07/09/2020 GLU 112 (H) 07/17/2024 HGBA1C 6.3 (H) 07/17/2024 Vitals: Vitals: 12/21/24 1009 BP: (!) 148/92 Pulse: 88 Weight: 169 lb 6.4 oz (76.8 kg) Height: 5' 2 (1.575 m) Body mass index is 30.98 kg/m??. Physical Exam: GEN: Alert, pleasant and oriented x3. Skin W/D. Resp easy. In no acute distress. HEENT: Sclerae anicteric. No xanthelasmas. EOM's intact. NECK: Supple. No JVD. LUNGS: clear to auscultation. Chest wall nontender. HEART: irregularly irregular EXT: trace BLE edema NEURO: no obvious focal abnormalities Assessment/ Plan: CAD s/p PCI of OM (2016) - Denies chest pain - Stress 10/21/23: Non ischemic - LHC 07/10/20: Stable, non obstructive CAD - Continue bASA, Simvastatin Chronic HFpEF - Appears compensated on exam - Echo 09/24/23: EF 55-60%, LA moderately enlarged, RA mildly enlarged - Diuresis with Lasix 20 mg QOD - GDMT: Continue Lisinopril 10 mg BID - Discussed daily weights, low sodium diet, fluid restriction Chronic atrial fibrillation - [id number]: 5, continue Eliquis 5 mg BID - Rate controlled without BB HTN - 148/92 -> 135/80 on recheck - Continue Lisinopril, Amlodipine 2.5 mg QD HLD - LDL 54 (07/17/24) - LFTs wnl - Continue Simvastatin T2DM - Hgb A1c 6.3% (07/17/24) Follow up in 6 months Call for questions or concerns prior to next office visit [facility] [place] documented in this encounter Miscellaneous Notes * Patient Instructions - Emma Craft RMA - 12/21/2024 10:30 AM EDT You may receive a survey via phone, mail or e-mail, regarding your visit today. Your feedback is important to us. We ask that you please take a few minutes to fill out the survey. You were assisted today by [facility] and LESTER Hemphill Thank You for choosing [facility]. We sincerely thank you for the opportunity to be a part of your care. documented in this encounter Plan of Treatment Upcoming Encounters Date Type Department Care Team (Late st Contact Info) Description 07/12/2025 10:00 AM EDT Office Visit [facility] [address] [place] [address] [address] Lo MD [address] [place] [address] [place] [address] documented as of this encounter Visit Diagnoses Diagnosis ASHD (arteriosclerotic heart disease)- Primary Coronary atherosclerosis of unspecified type of vessel, [place] or graft Essential hypertension Unspecified essential hypertension Pure hypercholesterolemia Chronic atrial fibrillation (HCC) Atrial fibrillation Chronic heart failure with preserved ejection fraction (HCC) documented in this encounter Additional Health Concerns Assessment Noted Time A fall risk assessment has been complete d for the patient 01/06/2020 8:02 AM EDT documented as of this encounter Care Teams Business Analyst Ecommerce Relationship Specialty Start Date End Date Fadi Christy MD [address] [place] [phone] PCP - General Family Medicine 09/06/14 documented as of this encounter
[2025-01-24] VITALS (8 sets, daily range): BP systolic 149–167; BP diastolic 89–141; PULSE 82–108; RESP 19; TEMP 36.6–37.1; O2SAT 95–98; BMI 32.7
--- OUTSIDE RECORDS SUMMARY | 2025-01-24 12:09 | XMS_ITS | Clinical Summary ---
Author Organization [facility] Address [address] [place] [phone] Phone Care Team Providers Care Extrusion Manager Name Role Phone Fadi Christy MD Primary [...] Patient not taking.Reason: Therapy Completed, Reported on 12/21/2024 amLODIPine (NORVASC) 2.5 mg Oral Tablet Take [...] Encounters Date Type Department Care Team Description 12/21/2024 10:30 AM EDT Office Visit [facility] [address] [address] Megha Wilder PA ASHD (arteriosclerotic heart disease) (Primary Dx); Essential hypertension; Pure hypercholesterolemia; Chronic atrial fibrillation (HCC); Chronic heart failure with preserved ejection fraction (HCC) 11/02/2024 Telephone [facility] [place] [address] [place] [address] Lane Lo MD Reschedule 10/28/2024 Telephone [facility] [place] [address] [place] [phone] Lane Lo MD Reschedule from Last 3 [...] on file Sexual Orientation Not on file Last Filed Vital Signs Vital Sign Reading Time Taken Comments Blood Pressure 148/92 12/21/2024 10:09 AM EDT Pulse 88 12/21/2024 10:09 AM EDT Temperature 36.3 C (97.3 F) 08/26/2020 12:03 PM EDT Respiratory Rate 16 07/10/2020 5:14 PM EDT Oxygen Saturation 97% 04/04/2022 10:53 AM EST Inhaled Oxygen Concentration - - Weight 76.8 kg (169 lb 6.4 oz) 12/21/2024 10:09 AM EDT Height 157.5 cm (5' 2 ) 12/21/2024 10:09 AM EDT Body Mass Index 30.98 12/21/2024 10:09 AM EDT Plan of Treatment Upcoming Encounters Date Type Department Care Team (Late st Contact Info) Description 07/12/2025 10:00 AM EDT Office Visit [facility] [address] [address] Lo MD [address] [place] [address] [address] [place], [place] [id number] Health Maintenance Due Date Last Done Comments [...] this topic Medical Devices Implanted Type Area Biological Technical Officer Device Identifier Shelf Expiration Date Model / Serial / Lot Stent Xience Alpine Drug Eluting 3.0mm X 12mm - [id number] Implanted:Qty : 1 on 10/30/[address] Lo MD at [facility] N/A: [employer] [facility] DEV [id number] Procedures Procedure Name Priority Date/Time Associated Diagnosis [...] - 5.6 % 07/17/2024 4:32 PM EDT [facility] Est. Avg Glucose 134 mg/dL 07/17/2024 4:32 PM EDT [facility] Blood VENOUS BLOOD / Unknown Venipuncture / Unknown 07/17/2024 9:29 AM EDT 07/17/2024 9:29 AM EDT Narrative [facility] - 07/17/2024 4:32 PM EDT REFERENCE RANGE: Normal: 4.0-5.6% Pre-diabetes: 5.7-6.4% Provisional diagnosis of diabetes: >6.4% Hgb F>10% and anything which shortens red cell survival, such as hemolytic anemia, or unstable hemoglobin variants such as HbSS, HbSC, or HbCC, will lower the HbA1c value associated with a given level of glycemic control. us Lane Lo MD CHEMISTRY ORDERABLES Final R esult [facility] [address] [facility], [address] [place] [id number] [facility] [address] [place] [id number] * LIPID SCREEN (07/17/2024 9:29 AM EDT) [facility] Cholesterol 142 <200 mg/dL 07/17/2024 3:40 PM EDT [facility] Comment: < 200 Desirable 200 - 239 Borderline High >= 240 High Triglyceride 102 <150 mg/dL 07/17/2024 3:40 PM EDT [facility] Comment: < 150 Normal 150 - 199 Borderline High 200 - 499 High >= 500 Very High HDL 70 >=40 mg/dL 07/17/2024 3:40 PM EDT [facility] Comment: > 60 Optimal 40 - 60 Acceptable < 40 Low LDL Calculated 54 <100 mg/dL 07/17/2024 3:40 PM EDT [facility] Comment: < 100 Optimal 100 - 129 Near or above optimal 130 - 159 Borderline High 160 - 189 High >= 190 Very High The National Institutes of Health (NIH) equation is used for all lipid panels that report calculated LDL (LDL-C). Non-HDL-C Calculated 72 <=129 mg/dL 07/17/2024 3:40 PM EDT [facility] Comment: <130 Desirable 130-159 Above Desirable 160-189 Borderline High 190-219 High >= 220 Very High Fasting Specimen? Yes None 025 3:40 PM EDT [facility] Blood VENOUS BLOOD / Unknown Venipuncture / Unknown 07/17/2024 9:29 AM EDT 07/17/2024 9:[address] Lo MD CHEMISTRY ORDERABLES Final R esult [facility] [address] [facility] , [address] [place] [address] [facility] [address] [place] [address] * (ABNORMAL) COMPREHENSIVE METABOLIC PANEL (07/17/2024 9:29 [...] - 123 U/L 07/17/2024 3:40 PM EDT [facility] eGFR (CKD-EPIcr 2020) 85 >=60 mL/min/1.7 3 m2 07/17/2024 3:40 PM EDT [facility] Comment:Estimated GFR was ca lculated using the CKD-EPIcr (2020) equation refit without race. The equation is recommended by the National Kidney Foundation - [place] Society of Nephrology Task Force. Blood VENOUS BLOOD / Unknown Venipuncture / Unknown 07/17/2024 9:29 AM EDT 07/17/2024 9:[address] Lo MD CHEMISTRY ORDERABLES Final R esult Performing Organization Address [facility] Co de Phone Number [facility] [address] [place] [address] , [address] [place] [address] * MICROALBUMIN/CREATININE RATIO URINE (07/09/2020 1:55 AM EST) Urine Microalb <12.0 mg/L 07/09/2020 2:41 AM EST [facility] Urine Creatinine 50.3 mg/dL 07/10/19 21 2:41 AM EST [facility] Ur Microalb/Creat 021 2:41 AM EST [facility] Comment: Because the albumin level is below [...] URINE ORDERABLES Final Result Performing Organization Address [facility] Co de Phone Number [facility] Light [employer]raction [address] , [address] [place] [address] * DX BONE DENSITY AXIAL SKELETON (02/23/2015 8:05 AM EDT) Anatomical Region Laterality Modality Dexa Scan 02/23/2015 Narrative 02/25/2015 10:36 AM EDT Indication: The patient is a post-menopausal female over age 65 with clinical risk factors for an osteoporotic fracture that requires a bone density assessment. Study was performed on Review Trackers. Bone Density: Region BMD T-score Z-score Femoral [...] and scoliosis. Reported by: Odalys Hawkins PA-C, [facility], CCD on 02/23/2015 12:19:00 PM. us Venkatesh Frazier MD IM DEXA ORDERABLES Fin al Result from Last 3 Months or Most Recently Relevant to Health Maintenance Insurance [employer] MEDICARE PPO MR [employer] MEDICARE PPO MR * Guarantor: Penny Ochoa Account Type Relation to Patient Date of Phone Billing Address [place] Personal Family Self Advance Directives For more information, please contact: [phone] * Full Code (Latest Code Status on [...] 9:01 AM 11/01/2015 4:32 PM Care Teams Extrusion Manager Relationship Specialty Start Date End Date Fadi Christy MD [address] [place] [phone] PCP - General Family Medicine 09/06/14
--- NOTE | 2025-01-24 12:24 | XR_ITS ---
PROCEDURE INFORMATION: Exam: XR Chest Exam date and time: 01/24/2025 12:30 PM Age: 84 years old Clinical indication: Pain; Left-sided; Additional info: Left lower posterior rib pain TECHNIQUE: Imaging protocol: Radiologic exam of the chest. Views: 2 views. COMPARISON: CT CHEST WO CON 08/20/2024 1:06 PM FINDINGS: Lungs: Unremarkable. No consolidation. Pleural spaces: Unremarkable. No pleural effusion. No pneumothorax. Heart/Mediastinum: Stable cardiac silhouette Bones/joints: Scoliosis. Degenerative changes along the thoracolumbar spine IMPRESSION: No acute findings.
--- NOTE | 2025-01-24 12:34 | CT_ITS ---
PROCEDURE INFORMATION: Exam: CTA Abdomen and Pelvis With Contrast Exam date and time: 01/24/2025 1:03 PM Age: 84 years old Clinical indication: Other: Left flank bruising TECHNIQUE: Imaging protocol: Computed tomographic angiography of the abdomen and pelvis with contrast. Exam focused on the arteries. 3D rendering (Not supervised by radiologist): MIP and/or 3D reconstructed images were created by the technologist. Radiation optimization: All CT scans at this facility use at least one of these dose optimization techniques: automated exposure control; mA and/or kV adjustment per patient size (includes targeted exams where dose is matched to clinical indication); or iterative reconstruction. Contrast material: ISO 370; Contrast volume: 80 ml; Contrast route: INTRAVENOUS (IV); COMPARISON: CT ABDOMEN PELVIS WO CON 08/20/2024 1:09 PM FINDINGS: Lungs: Opacities in the medial left lower lobe and lingula may represent atelectasis or pneumonia. Coronary arteries: Coronary artery calcifications may indicate coronary artery disease. Aorta: No aneurysm of the aorta. No dissection of the aorta. Celiac and mesenteric arteries: No occlusion or significant stenosis. Renal arteries: No occlusion or significant stenosis. Right iliac arteries: No occlusion or significant stenosis. Left iliac arteries: No occlusion or significant stenosis. Liver: No mass. Gallbladder and biliary ducts: Unremarkable. No calcified stones. No ductal dilation. Pancreas: Pancreatic atrophy Spleen: Unremarkable. No splenomegaly. Adrenal glands: Unremarkable. No mass. Kidneys and ureters: Unremarkable. No solid mass. No hydronephrosis. Stomach and bowel: Diverticulosis and Bowel wall thickening along the rectosigmoid colon. Mild pericolonic inflammatory changes. No evidence of perforation or abscess formation or bleeding. Findings consistent with acute diverticulitis. Appendix: No evidence of appendicitis. Intraperitoneal space: Unremarkable. No free air. No significant fluid collection. Lymph nodes: Unremarkable. No enlarged lymph nodes. Urinary bladder: Unremarkable. No mass. Reproductive: Surgical resection of the uterus Bones/joints: No acute fracture. Soft tissues: Unremarkable. Other findings: As an underlying malignancy cannot be entirely excluded, a follow-up examination after a course of treatment is recommended if clinically warranted. IMPRESSION: 1. Diverticulosis and Bowel wall thickening along the rectosigmoid colon. Mild pericolonic inflammatory changes. No evidence of perforation or abscess formation or bleeding. Findings consistent with acute diverticulitis. 2. No aneurysm of the aorta. 3. No dissection of the aorta. 4. Opacities in the medial left lower lobe and lingula may represent atelectasis or pneumonia. 5. As an underlying malignancy cannot be entirely excluded, a follow-up examination after a course of treatment is recommended if clinically warranted.
--- NOTE | 2025-01-24 12:34 | CT_ITS ---
PROCEDURE INFORMATION: Exam: CTA Chest With Contrast Exam date and time: 01/24/2025 1:03 PM Age: 84 years old Clinical indication: Other: Left posterior rib pain, bruising to flank TECHNIQUE: Imaging protocol: Computed tomographic angiography of the chest with contrast. Exam focused on the arteries. 3D rendering (Not supervised by radiologist): MIP and/or 3D reconstructed images were created by the technologist. Radiation optimization: All CT scans at this facility use at least one of these dose optimization techniques: automated exposure control; mA and/or kV adjustment per patient size (includes targeted exams where dose is matched to clinical indication); or iterative reconstruction. Contrast material: ISO 370; Contrast volume: 80 ml; Contrast route: INTRAVENOUS (IV); COMPARISON: CT CHEST WO CON 08/20/2024 1:06 PM FINDINGS: Pulmonary arteries: Small right pulmonary embolus: Filling defect in a small branch of the descending right pulmonary artery. Series 8, image 191. Aorta: No aneurysm of the aorta. No dissection of the aorta. Lungs: Unremarkable. No consolidation. No masses. Pleural spaces: Unremarkable. No pneumothorax. No pleural effusion. Heart: No evidence of right ventricular dysfunction Coronary arteries: Coronary artery calcifications may indicate coronary artery disease. Lymph nodes: Unremarkable. No enlarged lymph nodes. Bones/joints: Unremarkable. No acute fracture. Soft tissues: Unremarkable. IMPRESSION: 1. Small right pulmonary embolus: Filling defect in a small branch of the descending right pulmonary artery. Series 8, image 191. 2. No aneurysm of the aorta. 3. No dissection of the aorta.
[2025-01-24 12:35] LABS: Hematocrit 37.3 % (37.0-47.0); Hemoglobin 12.2 g/dL (12.2-16.2); Immature Granulocytes % 0.4 %; Mean Corpuscular HGB Conc 32.7 g/dL (31.8-35.4); Mean Corpuscular Hemoglobin 31.0 pg (27.0-31.2); Mean Corpuscular Volume 94.7 fl (81-99); Nucleated Red Blood Cells % 0 %; Platelet Count 297 K/mm3 (142-424); Red Blood Count 3.94 M/mm3 (4.20-5.40); Red Cell Distribution Width-SD 50.4 fL; White Blood Count 5.3 K/mm3 (4.8-10.8)
[2025-01-24 12:38] LABS: Alanine Aminotransferase 19 U/L (12-78); Albumin Level 4.1 g/dl (3.5-5.0); Albumin/Globulin Ratio 1.5 (1.1-1.8); Alkaline Phosphatase 84 U/L (38-126); Anion Gap 13.6 mEq/L (5-15); Aspartate Amino Transferase 29 U/L (14-36); Bilirubin,Total 0.7 mg/dl (0.2-1.3); Blood Urea Nitrogen 12 mg/dl (7-17); Calcium 10.3 mg/dl (8.4-10.2); Carbon Dioxide 27 mmol/L (22.0-30.0); Chloride 101 mmol/L (98-107); Creatinine Clearance Estimated 47 mL/min (50-200); Creatinine,Serum 0.70 mg/dl (0.52-1.04); Estimated Glomerular Filt Rate 79 ml/min (>60); GFR (African American) 96 ML/MIN (>60); Globulin 2.7 g/dL (1.3-3.2); Glucose 118 mg/dl (74-100); Potassium 3.6 mmoL/L (3.5-5.1); Sodium 138 mmol/L (136-145); Total Protein,Serum 6.8 g/dl (6.3-8.2)
[2025-01-24 12:47] LABS: NT Pro Brain Natriuretic Pep. 2300 pg/mL (0-450)
--- NOTE | 2025-01-24 12:52 | ECG_ITS ---
APPROVED REPORT Exam: Resting ECG HR:87 bpm ECG Measurements Heart Rate 87 AXES QRSd 89 QRS -4 QT 343 T 71 QTc 388 Conclusion ATRIAL FIBRILLATION LOW QRS VOLTAGE IN PRECORDIAL LEADS [QRS DEFLECTION < 1.0 mV IN CHEST LEADS] MODERATE ST DEPRESSION [0.05+ mV ST DEPRESSION] ABNORMAL ECG UNCONFIRMED REPORT Electronically signed by : SOHAN LOOMIS, 01/25/2025 23:04:11
[2025-01-24] MEDS: IOPAMIDOL-370 (76%);100ML BOTTLE 80 ML IV (13:01)
[2025-01-24] MEDS: SODIUM CHLORIDE 0.9% 10ML SYR (RAD ONLY) 10 ML IV (13:01)
[2025-01-24] MEDS: 0.9 % SODIUM CHLORIDE 50 ML VIAL IV (13:01)
[2025-01-24 13:18] LABS: Magnesium 1.4 mg/dl (1.6-2.3)
--- NOTE | 2025-01-24 13:19 | PC.NURSE ---
pt thinks her blood glucose may be dropping. her BSFS was 98. I notified Kyree MOORE. I asked if the pt could have anything to eat, not at this time per the provider. I notified the pt. no other new complaints. no needs voiced. call garduno in reach.
[2025-01-24 13:20] LABS: Lipase < 10 U/L (23-300)
--- NOTE | 2025-01-24 13:25 | PC.NURSE ---
I called lab to check on the status of the pts troponin. Anny states seven more minutes.
[2025-01-24 13:32] LABS: Troponin I < 0.01 ng/ml (0.00-0.034)
[2025-01-24 13:50] LABS: Thyroid Stimulating Hormone 0.46 uIU/mL (0.465-4.68)
--- NOTE | 2025-01-24 14:46 | ED_ITS ---
<Statement entered by Tom Khan MD - 01/24/25 14:54> I was consulted by the MONICA, and we discussed the complexity of the problems being addressed. I approved the treatment and management plan for this patient's care in the emergency department, thus performing a substantive portion of the medical decision making. Tom Khan MD, RADAMES, FACEP Discharge Plan Disposition Patient Disposition: Home, Self-Care Condition: Good Prescriptions Prescriptions: New azithromycin [Zithromax Z-Gualberto] 250 mg tablet See Rx Instructions .ROUTE .COMPLEX Qty: 6 0RF Rx Instructions: For 250 mg dose pack: take 500 mg today (day 1), then 250 mg for 4 days (days 2-5) amoxicillin-pot clavulanate 875-125 mg tablet 1 tab PO BID Qty: 20 0RF No Action cholecalciferol (vitamin D3) 25 mcg (1,000 unit) tablet 25 mcg PO DAILY furosemide 20 mg tablet 20 mg PO DAILY Qty: 90 1RF metformin 500 mg tablet 500 mg PO DAILY Qty: 90 3RF sertraline 50 mg tablet See Rx Instructions .ROUTE .COMPLEX Qty: 90 3RF Dose Instruction: TAKE ONE TABLET BY MOUTH DAILY Rx Instructions: TAKE ONE TABLET BY MOUTH DAILY amlodipine 2.5 mg tablet 2.5 mg PO DAILY Qty: 30 0RF lisinopril 10 mg tablet 10 mg PO BID Qty: 60 2RF cyanocobalamin (vitamin B-12) 1,000 mcg tablet 1,000 mcg PO DAILY Qty: 90 1RF ascorbic acid (vitamin C) 1,000 MG tablet 1,000 mg PO DAILY simvastatin 10 MG tablet 10 mg PO DAILY acetaminophen 500 MG tablet 500 mg PO DAILY PRN (Reason: Pain) calcium carbonate 600 MG tablet 600 mg PO DAILY aspirin 81 MG tablet,chewable 81 mg PO DAILY xovksmxp-oxg-TT-lycopen-lutein 1 EACH tablet 1 each PO DAILY apixaban 5 MG tablet 5 mg PO BID famotidine 10 mg tablet 10 mg PO DAILY PRN (Reason: stomach) Referrals Follow up/Referrals: Alma Delia Johnson APRN [Primary Care Provider, Family Practice] - See instructions Activity Restrictions/Add. Instructions Additional Instructions/Restrictions: You were seen for a small pulmonary embolism (blood clot in the lung). Continue your Eliquis. You also had pneumonia and diverticulitis. Take your antibiotics as prescribed. Return to the ER for fever, shortness of breath or worsening of symptoms. See your PCP this week. Clinical Impressions Clinical Impression: Pneumonia, Diverticulitis, Pulmonary embolism Instructions Patient Instructions: DI for Pneumonia -- Adult, DI for Pulmonary Embolism, DI for Diverticulitis Print Language Print Language: Bahamian Discharge ED Provider: Tom Khan General Adult HPI General Chief complaint: PAIN Stated complaint: bruise back, both leg swollen Time Seen by Provider: 01/24/25 12:14 Mode of Arrival: Wheelchair Source of Information: Patient and Relative Description of Symptoms (Recalled from ER Triage Doc. by RN): Patient presents to ED with c/o BLE edema and bruising to her back without injury. Patient states she bagan to have some mid to left back pain , states it is now radiating down to her left hip. Patient states she is on Eliquis for chronic AFib. Notes she has been using Icy Hot in a roller applicator to the area. Also reports taking Tylenol and Aleve this AM. History of Present Illness HPI narrative: Patient presents with left posterior rib pain. She also reports bilateral lower extremity edema. She has a history of chronic edema which usually improves with Lasix. She has been taking her Lasix daily without resolution. She denies any cough, chest pain, shortness of breath. She does have chronic palpitations due to her A-fib. Patient is on Eliquis. Today she noted bruising to the left side of her back, she has been rolling icy hot on. complaint: edema, rib pain Onset (ago): day(s) Location: lower extremity Radiation: non-radiation Severity: mild Quality: constant Consistency: constant Relieving factors: none Exacerbating factors: none Associated symptoms: denies other symptoms Treatments prior to arrival: none Related Data Home Medications ?Medication ?Instructions ?Recorded ?Confirmed acetaminophen 500 mg tablet 500 mg PO DAILY PRN Pain 0 07/08/20 01/24/25 apixaban 5 mg tablet 5 mg PO BID Blood thinner 01/24/25 ascorbic acid (vitamin C) 1,000 mg 1,000 mg PO DAILY S upplement 07/08/20 01/24/25 tablet aspirin 81 mg chewable tablet 81 mg PO DAILY Supplemen t 07/08/20 01/24/25 calcium carbonate 600 mg PO DAILY Supplement 0 07/08/20 01/24/25 zyktvrrt-laq-bvjnx acid 0.4 1 each PO DAILY Supplement 07/08/20 01/24/25 mg-lycopene 300 mcg-lutein 250 mcg tablet simvastatin 10 mg tablet 10 mg PO DAILY Cholesterol 0 07/08/20 01/24/25 cholecalciferol (vitamin D3) 25 25 mcg PO DAILY 01/24/25 mcg (1,000 unit) tablet famotidine 10 mg tablet 10 mg PO DAILY PRN stomach 1 01/24/25 Previous Rx's ?Medication ?Instructions ?Recorded furosemide 20 mg tablet 20 mg PO DAILY #90 tabs 08/29 amlodipine 2.5 mg tablet 2.5 mg PO DAILY #30 tabs lisinopril 10 mg tablet 10 mg PO BID #60 tabs metformin 500 mg tablet 500 mg PO DAILY #90 tabs sertraline 50 mg tablet See Rx Instructions .Route 0 12/16/24 .COMPLEX #90 tabs cyanocobalamin (vitamin B-12) 1,000 mcg PO DAILY #90 t abs 12/21/24 1,000 mcg tablet amoxicillin 875 mg-potassium 1 tab PO BID #20 tabs clavulanate 125 mg tablet azithromycin 250 mg tablet See Rx Instructions PO .COM PLEX #6 01/24/25 (Zithromax Z-Gualberto) tabs Allergies Allergy/AdvReac Type Severity Reaction Status Date / Time codeine Allergy Verified 12/16/24 08:54 [facility] Disclaimer: The information contained in this section may have been updated after the patient was seen, as this information can be updated by other users. Medical History (Updated 01/24/25 @ 14:10 by TERESA Hunter) Provides care for chronically ill spouse Walker as ambulation aid Lumbar scoliosis Hematuria Sacroiliac joint dysfunction of right side Lumbar paraspinal muscle spasm Acute midline low back pain with right-sided sciatica Ambulates with cane Anxiety and depression Lumbar degenerative disc disease Vitamin D deficiency Vitamin B12 deficiency ASCVD (arteriosclerotic cardiovascular disease) Type 2 diabetes mellitus without complications Hyperlipidemia Afib Essential hypertension CHF (congestive heart failure) GERD (gastroesophageal reflux disease) Diabetes Anxiety and depression HLD (hyperlipidemia) HTN (hypertension) History of heart attack 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 Surgical History History of cardiac cath (~2020) History of eye surgery (~1994) History of heart artery stent (~2015) History of hysterectomy (~1974) Hx of appendectomy (~1949) Family History Other Heart attack Social History Smoking Status: Never smoker alcohol intake: never current occupational status: retired Travel in the last 8 weeks?: None Have you lived/traveled outside [place] in past 30 days?: No Contact w/someone who lives/traveled outside [place] past 30 days?: No Exposure to someone with infectious disease in past 14 days?: No Do you have a fever (greater than 100.4 F or 38 C)?: No Have you tested positive for COVID-19?: No Exposed to someone with COVID-19 in past 14 days?: No Do you have a sore throat?: No Do you have a cough?: No Do you have any weakness?: No Do you have any diarrhea?: No Are you experiencing any unusual bleeding?: No Do you have any muscle aches/pain?: No Do you have any abdominal pain?: No Are you experiencing loss of taste or smell?: No Other Medical History Have you received the Flu Vaccine for this season: Yes Have you received the Pneumonia Vaccine: Yes ROS Obtained: Yes Systems reviewed as appropriate & no additional complaints except as documented Physical Exam General General appearance: alert and in no apparent distress Head Head exam: atraumatic and normocephalic Eye Eye exam: Present normal appearance and EOMI Chest Chest inspection: Present symmetric chest wall rise Respiratory Respiratory exam: Present normal lung sounds bilaterally; Absent wheezes or stridor Cardiovascular Cardiovascular exam: Present regular rate and normal rhythm; Absent systolic murmur Abdominal Exam Abdominal exam: Present soft; Absent distention, tenderness or guarding Extremities Exam Extremities exam: Present full ROM Back Exam Back exam: Present other (Tenderness and bruising to the left flank area) Neurological Exam Neurological exam: Present alert and oriented X3 Psychiatric Psychiatric exam: Present normal affect and normal mood Skin Skin exam: Present warm, dry and intact Medical Decision Making Medical Records Screening: Per USPSTF and CDC recommendations, given the prevalence of disease in our region, it is our hospital?s policy to screen for HIV and viral Hepatitis for all patients aged 18 and over and those with ongoing risk factors. Olu Inquiry Pt receiving controlled substance: No Vital Signs: 01/24/25 12:17 01/24/25 12:31 01/24/25 13:11 Temperature 97.9 F Temperature Source Oral Pulse Rate 88 108 H Pulse Rate [Left] 87 Respiratory Rate 19 19 Blood Pressure 160/141 H Blood Pressure [Right Arm] 167/102 H Blood Pressure Mean 147 Blood Pressure Mean [Right Arm] 123 Blood Pressure Source [Right Arm] Automatic Cuff Blood Pressure Position [Right Arm] Sitting 02 Sat by Pulse Oximetry 95 97 95 Oxygen Delivery Method Room Air Room Air Room Air 01/24/25 13:15 01/24/25 13:21 01/24/25 13:30 Temperature Temperature Source Pulse Rate 95 H 89 98 H Pulse Rate [Left] Respiratory Rate 19 19 Blood Pressure 150/102 H 149/89 H Blood Pressure [Right Arm] Blood Pressure Mean 118 109 Blood Pressure Mean [Right Arm] Blood Pressure Source [Right Arm] Blood Pressure Position [Right Arm] 02 Sat by Pulse Oximetry 98 96 95 Oxygen Delivery Method Room Air Room Air Room Air 01/24/25 14:00 01/24/25 14:38 Temperature 98.7 F Temperature Source Pulse Rate 82 88 Pulse Rate [Left] Respiratory Rate 19 Blood Pressure 157/106 H 153/97 H Blood Pressure [Right Arm] Blood Pressure Mean Blood Pressure Mean [Right Arm] Blood Pressure Source [Right Arm] Blood Pressure Position [Right Arm] 02 Sat by Pulse Oximetry 97 Oxygen Delivery Method Room Air Room Air Lab Data Lab Results 01/24/25 12:15: WBC 5.3, RBC 3.94 L, Hgb 12.2, Hct 37.3, MCV 94.7, MCH 31.0, MCHC 32.7, RDW 14.5, Plt Count 297, MPV 9.8, Neut % (Auto) 73.2, Lymph % (Auto) 14.6, [place] % (Auto) 10.6 H, Eos % (Auto) 0.8, Baso % (Auto) 0.4, Neut # (Auto) 3.9, Lymph # (Auto) 0.8, [place] # (Auto) 0.6, Eos # (Auto) 0.0, Baso # (Auto) 0.0, Sodium 138, Potassium 3.6, Chloride 101, Carbon Dioxide 27, Anion Gap 13.6, BUN 12, Creatinine 0.70, Estimated Creat Clear 47, Estimated GFR 79, Est GFR ( Amer) 96, Glucose 118 H, Calcium 10.3 H, Magnesium 1.4 L, Total Bilirubin 0.7, AST 29, ALT 19, Alkaline Phosphatase 84, Troponin I < 0.01, N T-Pro-B Natriuret Pep 2300 H, Total Protein 6.8, Albumin 4.1, Globulin 2.7, Albumin/Globulin Ratio 1.5, Lipase < 10 L, TSH 0.46 L 01/24/25 12:15 01/24/25 12:15 Orders (Tests/Meds): ED MEDICATIONS Discontinued Medications Generic Name Dose Route Start Last Admin Trade Name Freq PRN Reason Stop Dose Admin Iopamidol 80 ml 01/24/25 13:00 01/24/25 13:01 Iopamidol-370 (76%);100ml Bottle IV 01/24/25 13:01 80 ml ONCE ONE Administration Sodium Chloride 10 ml 01/24/25 12:24 Sodium Chloride 0.9% 10ml Flush Syringe IV 02/23/25 12:23 NEEDED PRN Maintain IV Site Sodium Chloride 50 ml 01/24/25 13:00 01/24/25 13:01 0.9 % Sodium Chloride 50 Ml Vial IV 01/24/25 13:01 50 ml ONCE ONE Administration Sodium Chloride 10 ml 01/24/25 13:00 01/24/25 13:01 Sodium Chloride 0.9% 10ml Syr (Rad Only) IV 01/24/25 13:01 10 ml ONCE ONE Administration ORDERS Category Date Time Status CT angio abdomen pelvis Stat Cat Scan 01/24/25 12:34 Completed CTA Chest [CT angio chest PE protocol] Stat Cat Scan 01/24/25 12:34 Completed XR chest 2V Stat Exams 01/24/25 12:24 Completed BNP [NT Pro Brain Natriuretic Pep.] Stat Lab 01/24/25 12:15 Completed CBC w/Auto Diff [Complete Blood Count Auto Diff] Stat Lab 01/24/25 12:15 Completed CMP [Comprehensive Metabolic Panel] Stat Lab 01/24/25 12:15 Completed Lipase Stat Lab 01/24/25 12:15 Completed MAG [Magnesium] Stat Lab 01/24/25 12:15 Completed TSH [Thyroid Stimulating Hormone] Stat Lab 01/24/25 12:15 Completed Trop I [Troponin I] Stat Lab 01/24/25 12:15 Completed Medical Decision Narrative: In summary patient is a 84-year-old female who presents the emergency department for evaluation of flank pain, edema, bruising. Patient is hemodynamically stable upon arrival, afebrile. Bruising and tenderness noted to the left flank, bilateral lower extremity edema, no posterior calf tenderness or erythema. Differential diagnosis includes pulmonary embolism, thrombocytopenia, retroperitoneal hematoma. Initial workup will be conducted with CTA chest, abdomen, pelvis, labs, EKG. Initial workup reviewed by me reveals pneumonia, small right sided pulmonary embolism, diverticulitis.. Upon repeat evaluation patient is resting comfortably with stable vitals. Given this patient appropriate for discharge home at this time with a prescription for Zithromax and Augmentin. Instructed to follow-up with her PCP. Discussed need for reimaging after treatment for pneumonia. Critical Care Critical Care Time Critical Care Time: No
== END 2025-01-24 14:38 | disposition home or self-care (01) ==
PROVIDERS: Physician Assistant; Emergency Provider Student in an Organized Health Care Education/Training Program; PCP Nurse Practitioner
DX: I26.99 Other pulmonary embolism without acute cor pulmonale (principal); J18.9 Pneumonia, unspecified organism; K57.32 Diverticulitis of large intestine without perforation or abscess without bleeding; S30.1XXA Contusion of abdominal wall, initial encounter; X58.XXXA Exposure to other specified factors, initial encounter
CPT/HCPCS: 71046; 71275; 74174; 80053; 83690; 83735; 83880; 84443; 84484; 85025; 93005; 99284; 99285; Q9967

== ENCOUNTER 2025-02-01 15:00 | Outpatient (CLI) | payer MEDICARE, SELFPAY ==
--- OUTSIDE RECORDS SUMMARY | 2024-12-21 10:30 | XMS_ITS | Encounter Summary ---
Author Organization [place] [address] Care Team Providers Care Chicken Sexer Name Role Phone Fadi Christy MD Primary Care Provider [phone] Reason for Visit * Reason Comments Follow-up Yearly Encounter Details Date Type Department Care Team (Late st Contact Info) Description 12/21/2024 10:30 AM EDT Office Visit [facility] [place] [address] [place] [address] Megha Wilder PA [address] [place] [address] ASHD (arteriosclerotic heart disease) (Primary Dx); Essential [...] bilateral knee pain. 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 We sincerely thank you for the opportunity to be a part of your care. documented in this encounter Plan of Treatment Upcoming Encounters Date Type Department Care Team (Late st Contact Info) Description 02/03/2025 10:00 AM EDT Office Visit [facility] [place] [address] [place] [phone] Megha Wilder PA [address] [place] [address] [place] [address] 07/12/2025 10:00 AM EDT Office Visit [facility] [address] [place] [address] Lo MD [address] [place] [address] [address] [place], [place] [id number] documented as of this encounter Visit Diagnoses Diagnosis ASHD (arteriosclerotic heart disease)- Primary Coronary atherosclerosis of unspecified type of vessel, cahto or graft Essential hypertension Unspecified essential hypertension Pure hypercholesterolemia Chronic atrial fibrillation (HCC) Atrial fibrillation Chronic heart failure with preserved ejection fraction (HCC) documented in this encounter Additional Health Concerns Assessment Noted Time A fall risk assessment has been complete d for the patient 01/06/2020 8:02 AM EDT documented as of this encounter Care Teams Chicken Sexer Relationship Specialty Start Date End Date Fadi Christy MD [address] [place] [phone] PCP - General Family Medicine 09/06/14 documented as of this encounter
--- OUTSIDE RECORDS SUMMARY | 2025-01-25 14:36 | XMS_ITS | Encounter Summary ---
Author Organization 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 Pt taking azithromycin for pneumonia. No CPTA for cp * Auth/Cert/Inpt Specialty Diagnoses / Procedures Referred By Controssi t Referred To Contact Diagnoses Acute chest pain Referral ID Status Reason Start Date Expiration Date Visits Re quested Visits Authorized [id number] 1 1 Encounter Details Date Type Department Care Team (Latest Contact Info) Description 01/25/2025 2:36 PM EDT - 01/27/2025 5:23 PM EDT Hospital Encounter [facility] [address] [place], [place] [id number] Jose Calabrese MD [address] [place] [address] Kavitha Gregorio MD [address] [place] [address] Acute chest pain (Primary Dx); Lightheadedness Discharge Disposition: Home or Self Care Social History Tobacco Use Types Packs/Day Years Used Date Smoking Tobacco: Never Passive Smoke Exposure: Never Smokeless Tobacco: Never Alcohol Use Standard Drinks/Week Comments No 0 (1 standard drink = 0.6 oz pur e alcohol) PHQ-2 Answer Date Recorded PHQ-2 Total Score 0 01/26/2025 Overall Financial Resource Strain (CARDIA) Answe r Date Recorded How hard is it for you to pa y for the very basics like food, housing, medical care, and heating? Not hard at all 01/26/2025 [facility] - Occupational Stress Questionnaire Answer Date Recorded Do you feel stress - tense, restless, nervous, or anxious, or unable to sleep at night because your mind is troubled all the time - these days? Not at all 01/26/2025 Exercise Vital Sign Answer Date Recorde d On average, how many days pe r week do you engage in moderate to strenuous exercise (like a brisk walk)? 1 day 01/26/2025 On average, how many minutes do you engage in exercise at this level? 20 min 01/26/2025 Hunger Vital Sign Answer Date Recorded Within the past 12 months, y ou worried that your food would run out before you got the money to buy more. Never true 01/27/20 25 Within the past 12 months, t he food you bought just didn't last and you didn't have money to get more. Never true 01/26/2025 [facility] Utilities Answer Date Recorded In the past 12 months has e [employer], gas, oil, or water [employer] threatened to shut off services in your home? No 01/26/2025 [facility] HRSN CMS IP Transportation Answer D ate Recorded In the past 12 months, has l ack of reliable transportation kept you from medical appointments, meetings, work or from getting things needed for daily living? No 01/26/2025 Sexually Active [employer] Comments Not Currently Post-menopausal Male Comments No Sex and Gender Information Value Date Recorded Sex Assigned at Not on file Legal Sex Female 6:28 PM EDT Gender Identity Not on file Sexual Orientation Not on file documented as of this encounter Last Filed Vital Signs Vital Sign Reading Time Taken Comments Blood Pressure 90/56 01/27/2025 1:59 PM EDT Pulse 97 01/27/2025 3:08 PM EDT Temperature 36.1 C (97 F) 01/27/2025 1:59 PM EDT Respiratory Rate 16 01/27/2025 1:59 PM EDT Oxygen Saturation 100% 01/27/2025 1:59 PM EDT Inhaled Oxygen Concentration - - Weight 76 kg (167 lb 8 oz) 01/26/2025 1:19 PM ED T Height 152.4 cm (5') 01/25/2025 6:53 PM EDT Body Mass Index 32.71 01/25/2025 6:53 PM EDT documented in this encounter Functional Status * Alcohol Screening Score Answer Date of Assessment Author 0 01/25/2025 6:59 PM EDT Brett Ugalde RN * Drug Screening Score Answer Date of Assessment Author 0 01/25/2025 6:59 PM EDT Brett Ugalde RN * Question Answer Date of Assessment Author How often do you have a drin k containing alcohol? 0 01/25/2025 6:59 PM EDT Charleen Ugalde R N How many drinks containing a lcohol do you have on a typical day when you are drinking? 0 01/25/2025 6:59 PM EDT Charleen Ugalde R N How often do you have six or more drinks on one occasion? 0 01/25/2025 6:59 PM EDT Atilio Ugalde RN AUDIT-C to Determine Rows 4-10 0 01/25/2025 6:59 PM EDT Charleen Ugalde RN * Is the person deaf or does [...] 11:42 AM EDT Shena Qiu RN * Question Answer Date of Assessment Author Little interest or pleasure in doing things 0 01/26/2025 10:10 AM EDT Saniya Tran RN Feeling down, depressed, or hopeless 0 12/30 10:10 AM EDT Saniya Tran RN PHQ-2 Total Score 0 01/26/2025 10:10 AM EDT Saniya Tran RN * PHQ-9 Total Score Answer Date of Assessment Author 0 01/26/2025 10:10 AM EDT Slime Tran RN * PHQ-2 Total Score Answer Date of Assessment Author 0 01/26/2025 10:10 AM EDT Slime Tran RN * Suicide Severity Rating Answer Date of Assessment Author No Risk 01/25/2025 6:59 PM EDT Brett Ugalde RN * [place] Suicide Severity Rating Scale (Q shift for moderate and high) Question Answer Date of Assessment Author 1. In the past month, have y ou wished you were or wished you could go to sleep and not wake up? 0 01/25/2025 6:59 PM EDT Charleen Dempsey RN 2. In the past month, have y ou actually had any thoughts of killing yourself? (If no, skip to question 6) 0 01/25/2025 6:59 PM EDT Charleen Ugalde R N 6. Have you ever done anythi ng, started to do anything, or prepared to do anything to end your life? 0 01/25/2025 6:59 PM EDT Charleen Coelho RN documented as of this encounter Mental Status * Because of a physical, mental or emotional condition, does this person have serious difficulty concentrating, remembering or making decisions? Answer Entry Date Author No 11/08/2015 11:42 AM EDT Shena Qiu RN documented in this encounter Discharge Summaries * Kan Longoria MD - 01/27/2025 3:11 PM EDT Images from the original note were not included. Discharge Summary Patient Name: Penny Chang : 1940 Admit Date: 01/25* Discharge Date: 01/27/2025 Admitting Physician: Kavitha Gregorio MD Discharge Physician: Kan Longoria MD Hospital Course: Penny Chang was admitted for neck pain as well as left rib pain. She is CT angio of the chest abdomen pelvis which did not redemonstrate PE although this is not dedicated study. Symptoms of pleuritic pain are consistent with PE and I would stay on Eliquis for the time being. Patient does note missing some doses and is difficult to fully call this therapeutic failure of AC. She was seen by cardiology given chest pressure with neck pain. Cardiology workup was not consistent with cardiac etiology. Stress test and echocardiogram were largely reassuring. Echocardiogram did show elevated PASP which could be consistent with diagnosis of recent PE Discharge Exam: GEN: NAD. HEENT: Normocephalic, Atraumatic. Mucous membranes moist Neck: Supple CVS: Normal rate Pulm: CTAB. No accessory muscle use Abdominal: Nontender to palpation Extremities: No pitting edema. Skin: Warm and dry Neuro: Alert and Oriented to person, place, situation Discharge Medications: Medication List CONTINUE taking these medications acetaminophen 500 mg Tab Commonly known as: TYLENOL amLODIPine 2.5 mg Tab Commonly known as: NORVASC Take 1 Tablet by mouth daily. amoxicillin-clavulanate 875-125 mg Tab Commonly known as: AUGMENTIN apixaban 5 mg Tab Commonly known as: ELIQUIS Take 1 Tablet by mouth 2 times daily. artificial tear Drop Commonly known as: TEARS ascorbic acid (vitamin C) 1,000 mg Tab Commonly known as: VITAMIN C aspirin 81 mg Chew Take 1 Tab by mouth daily. Cholecalciferol (Vitamin D3) 125 mcg (5,000 unit) Tab famotidine 20 mg Tab Commonly known as: PEPCID fUROsemide 20 mg Tab Commonly known as: LASix Take 1 Tablet by mouth every other day. lisinopriL 10 mg Tab Commonly known as: PRINIVIL;ZESTril Take 1 Tablet by mouth 2 times daily. metFORMIN 500 mg Tab Commonly known as: GLUCOPHAGE MULTIVITAMIN ORAL sertraline 50 mg Tab Commonly known as: ZOLOFT simvastatin 10 mg Tab Commonly known as: ZOCOR Take 1 Tablet by mouth nightly. 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 Instructions given on medication changes, office follow up, and when to seek medical attention. Understanding was verbalized. Signed: Kan Longoria MD 01/27/2025 documented in this encounter Discharge Instructions * Attachments The following attachments cannot be sent through Care Everywhere. * Chest pain ??? Discharge instructions ([place]) * Pulmonary embolism ??? Discharge instructions ([place]) documented in this encounter Medications at Time of Discharge acetaminophen (TYLENOL) 500 mg Oral Tablet Take 1,000 mg by mouth 2 times daily as needed for Pain. amLODIPine (NORVASC) 2.5 mg Oral Tablet Take 1 Tablet by mouth daily. 90 Tablet 3 5 amoxicillin-clavulanate (AUGMENTIN) 875-125 mg Oral Tablet Take 875 mg by mouth 2 times daily. apixaban (ELIQUIS) 5 mg Oral Tablet Take 1 Tablet by mouth 2 times daily. 180 Tablet 3 5 artificial tear (TEARS) Opht Drops Place 1 Drop into both eyes daily. ascorbic acid, vitamin C, (VITAMIN C) 1,000 mg Oral Tablet Take 1,000 mg by mouth daily. aspirin 81 mg Oral Tablet, Chewable Take 1 Tab by mouth daily. 6 Cholecalciferol, Vitamin D3, 125 mcg (5,000 unit) Oral Tablet Take 5,000 Units by mouth daily. famotidine (PEPCID) 20 mg Oral Tablet Take 20 mg by mouth daily. fUROsemide (LASIX) 20 mg Oral Tablet Take 1 Tablet by mouth every other day. 45 Tablet 3 5 lisinopriL (PRINIVIL;ZESTRIL) 10 mg Oral Tablet Take 1 Tablet by mouth 2 times daily. 180 Tablet 3 5 metFORMIN (GLUCOPHAGE) 500 mg Oral Tablet Take 1 Tab by mouth daily. 0 MULTIVITAMIN ORAL Take 1 Tablet by mouth daily. sertraline (ZOLOFT) 50 mg Oral Tablet Take 50 mg by mouth daily. 1 simvastatin (ZOCOR) 10 mg Oral TabletIndications:ASHD (arteriosclerotic heart disease),Essential hypertension,Pure hypercholesterolemia Take 1 Tablet by mouth nightly. 90 Tablet 3 5 documented as of this encounter Discharge Disposition Disposition Code Departure Means Destination Comment s Home or Self [place] documented in this encounter Progress Notes * Shena Urias RN - 01/27/2025 4:28 PM EDT 01/27/25 9214 Ongoing Discharge Planning Evaluation Completed by CC/SW Yes Who does pt identify as their caregiver/support person who will be their active partner in the dc planning process Pt reports no caregiver/support person for dc planning process Anticipated post-acute care needs Home with OP Follow Up Observation Information Provided to Patient/Family Yes form signed OBS notice provided Patient provided verbal explanation of OBS status and opportunity to ask questions. Answered questions to best of ability Discussed discharge plans with Patient/Family/Caregiver/Support Person Yes, Discussed with patient Discussed discharge plans with Care Team at [facility] Yes, with nurse in attendance;Yes, with doctor in attendance Patient's goals for recovery Return to Prior Level of Functioning Discharge to Home with Family Actual Discharge Plan 01/27/25 CC FINAL. D/C order noted in EPIC. Met with patient at the bedside. Patient is alert and oriented. No further d/c needs identified. Son to transport home. CC SIGNING OFF. Final Note Referral to SEP Care Management (SEP patients only) No Discharge Round Completed Yes Post Acute Form Assign to DC [employer] No Post Acute Form Completed No Care Coordination Discharge Ready? Yes Post Acute Provider Fadi Christy MD DME Arranged at Discharge None DME Assign to DC Tech No DME completed by exoro system No Transportation at Discharge Personal vehicle Date Expected 01/27/25 Transportation Assign to [place] [employer] No Confirmed Discharge Transportation Plan? Yes Transportation setup completed by exoro system No PASAR Completed Not Applicable Patient Aware and Agrees with DC Plan Yes Primary Caregiver/Legal Decision Maker aware and agree with Discharge Plan No Did patient request for family to not be notified Yes Does family and/or caregiver verbalize readiness, willingness, and ability to provide or support patient's self-management activities as appropriate? 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 Last lipids appropriate * Kan Longoria MD - 01/27/2025 7:26 AM EDTAssociated Problem(s): Acute left-sided low back pain without sciatica Tizanidine PRN * Kan Longoria MD - 01/27/2025 7:26 AM EDTAssociated Problem(s): Permanent atrial fibrillation (HCC) Eliquis. Rate appropriate off meds * Kan Longoria MD - 01/27/2025 7:26 AM EDTAssociated Problem(s): Hypokalemia Give supplement. Recheck K level Mg level check if not responding Improved 01/26/25 after tx * Kan Longoria MD - 01/27/2025 7:16 AM EDT Images from the original note were not included. PROGRESS NOTE Assessment/Plan Progression toward disposition / Interval A&P changes: Some MSK in her lower back and pleuritic component possibly 2/2 small PE or other. Angina eval per cards. Multiple complaints with likely separate etiologies but episode of neck and chest pain still being evaluated Echo pending. Discussed w cardiology provider Check BMP Give mag Wean off IV morphine. Adjusted to one more dose if needed until we have final echo result. Natalia ordered Stop tizanidine. Having asx bradycardia at rest but will hold for precaution I am following this pleasant 84 y.o. female patient for principal problem Acute chest pain with additional problems as noted below. Assessment & Plan Acute chest pain Cardiology consult Stress reassuring Echo pending Coronary artery disease 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 bASA, eliquis 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) SSI novolog Essential hypertension Lisinopril, Amlodipine Paroxysmal A-fib (HCC) Eliquis Mixed hyperlipidemia Home statin. Last lipids appropriate Acute left-sided low back pain without sciatica Tizanidine PRN Permanent atrial fibrillation (HCC) Eliquis. Rate appropriate off meds Hypokalemia Give supplement. Recheck K level Mg level check if not responding Improved 01/26/25 after tx Subjective Mostly having chronic back and recent start of L rib pleuritic pain Objective Vitals: 01/27/25 0536 BP: Pulse: (!) 45 Resp: Temp: SpO2: Body mass index is 32.71 kg/m??. HEENT: No rhinorrhea Cardiovascular: Normal rate. irir Pulmonary: Breath sounds clear Abdominal: Soft Skin: Skin is warm and dry Data: Last documented BM: 01/26/25 FEN/GI: CARDIAC DIET VTE Prophylaxis reviewed Pain control as noted below Medications reviewed: amLODIPine 2.5 mg Oral Daily amoxicillin-clavulanate 1 Tablet Oral BID apixaban 5 mg Oral BID aspirin 81 mg Oral Daily atorvastatin 10 mg Oral Every Other Night famotidine 20 mg Oral Daily fUROsemide 20 mg Oral Daily GLUCERNA Therapeutic 1 'box' Oral Q AM Insulin Calculator - FSBS (Correction Only) Input 1 Each MISCELLANEOUS QID MEALTIME/HS And insulin aspart (NovoLOG) - Correction - Calculator 0-40 Units Subcutaneous QID MEALTIME/HS lisinopriL 10 mg Oral BID sertraline 50 mg Oral Daily acetaminophen, dextrose, glucagon AND sterile water, morphine, sodium chloride 0.9%, sodium chloride 0.9%, sodium chloride 0.9%, sodium chloride 0.9%, tiZANidine Kan Longoria MD * Melvin Krause MD - 01/27/2025 5:31 AM EDT EKG Interpretation Interpreted by Melvin Krause MD. Diagnostic Findings: Intervals reviewed Rhythm: atrial fibrillation - controlled Rate: 61 [place]: normal Ectopy: none Conduction: normal ST Segments: no acute change and normal T Waves: non specific changes Q Waves: none Clinical Impression: atrial fibrillation (chronic) EKG interpretation completed at request of nursing or primary provider. Nursing to contact primary provider of result. Further management per primary. Melvin Krause MD * Kayce Singleton RN - 01/26/2025 2:28 PM EDT Stress test procedure and medications explained to the patient. Patient verbalized understanding ofprocedure & medications and all questions answered. Patient education reinforced during and after procedure. * Priscilla Ardon RD,IAN - 01/26/2025 1:[address] [facility] Nutrition Malnutrition Assessment Evidence Supported Malnutrition Diagnosis: Mild protein-calorie malnutrition In the context of: Acute Illness Indicators: <75% energy intake compared to estimate energy needs for >7 days Nutrition Problem/Diagnosis: Nutrition Diagnosis Problem 1: Malnutrition (undernutrition) related to altered taste perception as evidenced by criteria as identified in malnutrition assessment. Status: New nutrition diagnosis Nutrition Prescription: Kcals: 1520 kcals (20 kcals/kg using 76.02 kg) Protein (g): 54 - 68 gm Protein needs based on: 1.2-1.5 gm/kg using IBW Plan/Interventions: Meals and Snacks: NPO Medical Food Supplements: Glucerna Therapeutic Medical Food/Supplement Freq: 1xday - Chocolate Nutrition-Related Medication Management: Emanuel Novomsia Nutrition Education: Importance of nutrition to healing and recovery, Oriented to Current Diet Order, Small frequent meals, Supplements Penny Chang is a 84 y.o. female patient. Admit Diagnosis: Acute chest pain [R07.9] Reason For Assessment: Admission nutrition screen (No consult received) Subjective: Subjective Comment: Pt visited. Pt reported that her appetite has been very little Pt stated thather portions have been less in the last 3 months d/t taste changes. Pt stated that she lost ~10-12# d/t diarrhea and not eating. ENGINEERING GROUP LEADER in room completing wt, 167.6 lbs. Pt suspects wt loss d/t fluid overload and pt's UBW at home is 159-160#. Discussed the importance of consistent nutrition to help increase appetite and prevent further wt loss. Discussed ONS - pt enjoys, will send to increase nutrient intake. Will continue to monitor and follow up PRN. Anthropometric Measurements: Height: 5' (152.4 cm) Weight: 167 lb 9.6 oz (76 kg) (Per ENGINEERING GROUP LEADER in room with digital scale) BMI (Calculated): 32.73 BMI Assessment: 30-34.9 Obesity Grade l IBW +/- 10%: 100 lb (45.4 kg) % IBW: 168 Weight History Intervals: 1 Month;Other Interval (comment) 1 Month--Wt History (lb): 169 lb (76.7 kg) 1 Month--Wt Change (lb): 2 1 Month--% Wt Change: 1.18 % 1 Month--Wt Gain or Loss: Loss 1 Month--Wt Loss Significance: Not significant Other Interval--Wt History (lb): 171 lb (77.6 kg) (7 months) Other Interval--Wt Change (lb): 7 Other Interval--% Wt Change: 4.09 % Other Interval--Wt Gain or Loss: Loss Other Interval--Wt Loss Significance: Not significant Food/Nutrition Related History: Dietary Orders Ordered NPO: Cardiac-give meds with water only (IP Consult to Cardiology) DIET EFFECTIVE NOW 01/26/25 0552 [START ON 01/27/2025] GLUCERNA Therapeutic oral supplement 1 'box' Oral Q AM Food Insecurity Within the past 12 months, you worried that your food would run out before you got the money to buymore.: Never true Within the past 12 months, the food you bought just didn't last and you didn't have money to get more.: Never true Tube Feeding?: No TPN?: No Food Allergies: NKFA Level of Assistance: Independent Chewing Difficulty: No Swallowing Difficulty: No Energy Intake: < 75% energy intake compared to estimated energy need for > 7 days Nutrition Focused Physical Findings: Physical Exam?: Yes Subcutaneous Fat Loss--Orbital: Well-nourished Subcutaneous Fat Loss--Buccal (Cheek): Well-nourished Subcutaneous Fat Loss--Triceps: Well-nourished Subcutaneous Fat Loss--Thoracic/Lumbar: Unable to assess Muscle Loss--Temporalis : Mild Muscle Loss--Clavicle Pectoralis/Trapezius: Well-nourished Muscle Loss--Clavicle and Acromion (Shoulder): Well-nourished Muscle Loss--Scapula: Well-nourished Muscle Loss--Interosseous: Well-nourished Muscle Loss--Patellar: Well-nourished Muscle Loss--Quadricep: Well-nourished Muscle Loss--Gastrocnemius (Calf): Well-nourished Functional Status: No Dysfunction LDAs- Active NG/OG/NJ,Wound,Pressure Injury,or Drain Drain Duration External Urinary Catheter Female [place] 1 day I/O last 3 completed shifts: In: 120 [P.O.:120] Out: - Edema:Right Lower Extremity Edema: +2, Pitting Left Lower Extremity Edema: +2, Pitting Abdomen: Abdominal/GI When was last BM? (Date): 01/24/25 Stool Assessment: Biochemical Data/Medical Tests: Pertinent Labs: Glucose 106 Pertinent Medical History: CAD, HLD Clinical Course: Clinical Course: Pt presented to ED with c/o chest pain. CTA showing no acute findings. * Saniya Tran RN - 01/26/2025 10:17 AM EDT 01/26/25 1011 Discharge Planning Evaluation Completed by CC/SW Yes Does patient meet high risk triggers? Age over 80 IP Mental Health Referral Pending No Who you interviewed In person interview with patient Mental Status Alert and oriented Decision Maker Patient Who does pt identify as their caregiver/support person who will be their active partner in the dc planning process Pt identified caregiver/support person for dc planning process Caregiver Name Mdai Chang (spouse) Caregiver Phone [phone] Does patient need caseworker protective services? No Activities of Daily Living Prior to Admission Independent with ADLS;Independent with Homemaking;Independent with mobility DME Used at Home Rollator Patient's Living Arrangments Prior to Admission? Private Residence With Other(s) Private Residence With Other(s) Spouse/Significant Other Support Systems Spouse/Significant Other;Children Is PCP listed on facesheet correct? Yes Quality of Support System Good Follow Up Assigned To: Referral not needed concern identified and addressed by Medical Physicist APS/CPS Report Made No Anticipated post-acute care needs Home with OP Follow Up Discussed discharge plans with Patient/Family/Caregiver/Support Person Yes, Discussed with patient Discussed discharge plans with Care Team at [facility] Yes, with nurse in attendance;Yes, with doctor in attendance Patient's goals for recovery Return to Prior Level of Functioning Actual Discharge Plan 01/26/2025: CC INITIAL ASSESSMENT: Chart reviewed. Note patient is alert and oriented X4. CC met with patient at bedside. CC introduced self and role. Patient states she residesin a single-family residence with her . Patinet states her is currently an in[facility]patient at [facility] in [place], [place]. Patient states there [facility] and no steps to the bedroom/bath area. Patient states her PCP is Dr. Fadi Christy MD. Patient states her acute care pharmacy is [facility] [place], [place]. Patient states she can currently afford all her medications, food, transportation, utilities, and other bills. Patient states she was indepen dent with all ADLS prior to admission. Patient states her prior to admission DME is a rollator. Patient states she has no familiarity with Home Health Care. Patient identified her son, Madi as her discharge planning support person. Patient states no other d/c needs. SDOH screen completed. Patient states no additional d/c needs currently. CC FOLLOWING. * Saniya Tran RN - 01/26/2025 10:11 AM EDT 01/26/25 1010 Living Situation What is your living situation today? I have a steady place to live Think about the place you live. Do you have problems with any of the following? None of the above Food Insecurity Within the past 12 months, you worried that your food would run out before you got the money to buymore. Never true Within the past 12 months, the food you bought just didn't last and you didn't have money to get more. Never true Transportation In the past 12 months, has lack of reliable transportation kept you from medical appointments, meetings, work or from getting things needed for daily living? No Utilities In the past 12 months has the electric, gas, oil, or water company threatened to shut off services in your home? No Safety How often does anyone, including family and friends, physically hurt you? 1 How often does anyone, including family and friends, insult or talk down to you? 1 How often does anyone, including family and friends, threaten you with harm? 1 How often does anyone, including family and friends, scream or curse at you? 1 Financial Resource Strain How hard is it for you to pay for the very basics like food, housing, medical care, and heating? Not hard Employment Do you want help finding or keeping work or a job? I do not need or want help Family and Community Support If for any reason you need help with day-to-day activities such as bathing, preparing meals, shopping, managing finances, etc., do you get the help you need? I don't need any help How often do you feel lonely or isolated from those around you? Never Education Do you speak a language other than [place] Island[place] at home? No Do you want help with school or training? For example, starting or completing job training or getting a high school diploma, GED or equivalent. No Physical Activity On average, how many days per week do you engage in moderate to strenuous exercise (like a brisk walk)? 1 day On average, how many minutes do you engage in exercise at this level? 20 min Substance Use How many times in the past 12 months have you had 5 or more drinks in a day (males) or 4 or more drinks in a day (females)? One drink is 12 ounces of beer, 5 ounces of wine, or 1.5 ounces of 80-proofspirits Never How many times in the past 12 months have you used tobacco products (like cigarettes, cigars, snuff, chew, electronic cigarettes)? Never How many times in the past year have you used prescription drugs for non-medical reasons? Never How many times in the past year have you used illegal drugs? Never Over the last 2 weeks, how often have you been bothered by any of the following problems? Little interest or pleasure in doing things 0 Feeling down, depressed, or hopeless 0 PHQ-2 Total Score 0 If any questions above are blank did patient decline to complete PHQ-2 No Stress Do you feel stress - tense, restless, nervous, or anxious, or unable to sleep at night because yourmind is troubled all the time - these days? Not at all Disabilities Because of physical, mental or emotional condition, do you have serious difficulty concentrating, remembering or making decisions? (5 yrs. old or older) No Because of physical, mental or emotional condition, do you have difficulty doing errands alone suchas visiting a doctor's office or shopping? (15 yrs. 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 Last lipids appropriate * Kan Longoria MD - 01/26/2025 9:45 AM EDTAssociated Problem(s): Acute left-sided low back pain without sciatica Tizanidine PRN * Allan Gomes, PharmD - 01/25/2025 10:44 PM EDT Pharmacy Medication History Medication history has been completed by: Medication History Fisher Gill Net Patient???s Medication Knowledge: good medication historian Patient's Adherence: adherent Reasons for Response Above: Patient takes medications as prescribed Sources of Information: Patient, SureScripts, and Outpatient Pharmacy Medication Allergies: Allergies Allergen Reactions Amoxicillin (Bulk) Other (See Comments) Makes me loopy Codeine Other (See Comments) Makes me loopy/crazy Patient Preferred Pharmacy:[facility] [id number] [place] [address] - [phone] [facility] [phone] The Prior to Admission Medications were reviewed and the following discrepancies were identified: Medications prescribed, but were not listed on the Prior to Admission Medication list: Amoxicillin -clavulanate 875-125 mg- take 1 tablet by mouth twice daily Medications not currently prescribed but were on the Prior to Admission Medication list (include reason): Isosorbide mononitrate 30 mg- therapy complete Meclizine 25 mg- therapy complete Discrepancies discovered in dose, route, or frequency on the Prior to Admission Medication list: Furosemide 20 mg- take 1 tablet by mouth daily Medications prescribed but not taking (include the reason): None Identified Other information related to the home medication history: Antibiotic and dose: Amoxicillin-clavulanate 875-125- take 1 tablet by mouth twice daily Indication: Pneumonia Last dose taken: 01/25/25 0800 When is antibiotic therapy to STOP? 02/03/25 Indication for anticoagulation: Pharmacy has collected and clarified patient's current medication list and updated this in EPIC, including prescriptions, [id number] medications, dietary, and herbal supplements. Prior to Admission medications Medication Sig Start Date End Date Last Dose Authorizing Provider acetaminophen (TYLENOL) 500 mg Oral Tablet Take 1,000 mg by mouth 2 times daily as needed for Pain.Taking Provider, Historical amLODIPine (NORVASC) 2.5 mg Oral Tablet Take 1 Tablet by mouth daily. 06/01/24 01/25/2025 at 8:[address] Lo MD amoxicillin-clavulanate (AUGMENTIN) 875-125 mg Oral Tablet Take 875 mg by mouth 2 times daily. 01/25/2025 at 8:00 AM Provider, Historical apixaban (ELIQUIS) 5 mg Oral Tablet Take 1 Tablet by mouth 2 times daily. 06/01/24 01/25/2025 at 8:[address] Lo MD artificial tear (TEARS) Opht Drops Place 1 Drop into both eyes daily. 01/25/2025 at 8:00 AM Provider, Historical ascorbic acid, vitamin C, (VITAMIN C) 1,000 mg Oral Tablet Take 1,000 mg by mouth daily. 01/25/2025 at 8:00 AM Provider, Historical aspirin 81 mg Oral Tablet, Chewable Take 1 Tab by mouth daily. 11/01/15 01/25/2025 at 8:00 AM Keila Cabello APRN Cholecalciferol, Vitamin D3, 125 mcg (5,000 unit) Oral Tablet Take 5,000 Units by mouth daily. 01/25/2025 at 8:00 AM Provider, Historical famotidine (PEPCID) 20 mg Oral Tablet Take 20 mg by mouth daily. 01/25/2025 at 8:00 AM Provider, Historical fUROsemide (LASIX) 20 mg Oral Tablet Take 1 Tablet by mouth every other day. Patient taking differently: Take 20 mg by mouth daily. 06/01/24 01/25/2025 at 8:[address] Lo MD lisinopriL (PRINIVIL;ZESTRIL) 10 mg Oral Tablet Take 1 Tablet by mouth 2 times daily. 06/01/24 01/25/2025 at 8:[address] Lo MD metFORMIN (GLUCOPHAGE) 500 mg Oral Tablet Take 1 Tab by mouth daily. 12/31/19 01/25/2025 at 8:00 AM Provider, Historical MULTIVITAMIN ORAL Take 1 Tablet by mouth daily. 01/25/2025 at 8:00 AM Provider, Historical sertraline (ZOLOFT) 50 mg Oral Tablet Take 50 mg by mouth daily. 08/09/20 01/25/2025 at 8:00 AM Provider, Historical simvastatin (ZOCOR) 10 mg Oral Tablet Take 1 Tablet by mouth nightly. 06/01/24 01/24/2025 at 9:[address] Lo MD Maria Setters, [facility] Allan Mei. Mireya, JaswinderD, BCPS, BCCP documented in this encounter H&P Notes * Kan Longoria MD - 01/26/2025 9:40 AM EDT Images from the original note were not included. SEP HOSPITALIST H&P Name: Penny Chang : 1940 AGE: 84 y.o. PCP: Fadi Christy MD Hospitalist: Kan Longoria MD Date of Admit: 01/25/2025 Admit Dx: Acute chest pain [R07.9] ASSESSMENT & PLAN: Assessment & Plan Acute chest pain Cardiology consult ASHD (arteriosclerotic heart disease) bASA, eliquis 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) SSI novolog Essential hypertension Lisinopril, Amlodipine Paroxysmal A-fib (HCC) Eliquis Mixed hyperlipidemia Home statin. Last lipids appropriate Acute left-sided low back pain without sciatica Tizanidine PRN VTE ppx reviewed Diet: NPO DIET Pain: Home meds. Give IV morphine PRN Hospitalist discussed case with transferring attending provider Dr Calabrese, admit for CP. Pre-admission diagnostics reviewed showing EKG shows rate controlled atrial fibrillation, troponin delta is -1 at 2 hours. BMP shows hypokalemia to 3.1 with mild metabolic acidosis. CBC reassuring. Chest x-ray shows possible left basilar opacity although this did not show up on CT of the chest. CT chest abdomen pelvis with contrast shows no acute abnormality. SUBJECTIVE: HPI: ; This patient is a 84 y.o. female w/ relevant PMH type 2 diabetes, atrial fibrillation, CAD, hypertension, hyperlipidemia, A-fib, degenerative disc disease who presents with Chief Complaint of neck and jaw pain. Patient notes she has been having pain in her neck and jaw for several days on and off. She does note some radiation down into her mid chest with a pressure- like sensation but is primarily focused onthe neck. Her neck is not stiff. No fevers recently. She also notes pain in her left flank. She notes she has chronic back pain and this is worse in her flank after lying in the hospital bed. She went to a different hospital the day prior to arrival and was told she may have a PE. She is on Eliquis. Review of Systems Constitutional: Negative for fever. Respiratory: Negative for cough and shortness of breath. Cardiovascular: Positive for leg swelling (chronic). Negative for palpitations. Gastrointestinal: Negative for nausea. HOME MEDS: Prior to Admission medications Medication Sig Start Date End Date Taking? Authorizing Provider acetaminophen (TYLENOL) 500 mg Oral Tablet Take 1,000 mg by mouth 2 times daily as needed for Pain.Yes Provider, Historical amLODIPine (NORVASC) 2.5 mg Oral Tablet Take 1 Tablet by mouth daily. 06/01/[address] Lo MD amoxicillin-clavulanate (AUGMENTIN) 875-125 mg Oral Tablet Take 875 mg by mouth 2 times daily. Yes Provider, Historical apixaban (ELIQUIS) 5 mg Oral Tablet Take 1 Tablet by mouth 2 times daily. 06/01/[address] Lo MD artificial tear (TEARS) Opht Drops Place 1 Drop into both eyes daily. Yes Provider, Historical ascorbic acid, vitamin C, (VITAMIN C) 1,000 mg Oral Tablet Take 1,000 mg by mouth daily. Yes Provider, Historical aspirin 81 mg Oral Tablet, Chewable Take 1 Tab by mouth daily. 11/01/15 Yes Keila Cabello APRN Cholecalciferol, Vitamin D3, 125 mcg (5,000 unit) Oral Tablet Take 5,000 Units by mouth daily. Yes Provider, Historical famotidine (PEPCID) 20 mg Oral Tablet Take 20 mg by mouth daily. Yes Provider, Historical fUROsemide (LASIX) 20 mg Oral Tablet Take 1 Tablet by mouth every other day. Patient taking differently: Take 20 mg by mouth daily. 06/01/[address] Lo MD lisinopriL (PRINIVIL;ZESTRIL) 10 mg Oral Tablet Take 1 Tablet by mouth 2 times daily. 06/01/[address] Lo MD metFORMIN (GLUCOPHAGE) 500 mg Oral Tablet Take 1 Tab by mouth daily. 12/31/19 Yes Provider, Historical MULTIVITAMIN ORAL Take 1 Tablet by mouth daily. Yes Provider, Historical sertraline (ZOLOFT) 50 mg Oral Tablet Take 50 mg by mouth daily. 08/09/20 Yes Provider, Historical simvastatin (ZOCOR) 10 mg Oral Tablet Take 1 Tablet by mouth nightly. 06/01/[address] Lo MD ALLERGIES: Allergies[1] PMH: Past Medical History[2] SURGICAL HX: Surgical History[3] FHX: Family History[4] SOCIAL HX: Social History Tobacco Use Smoking status: Never Passive exposure: Never Smokeless tobacco: Never Substance Use Topics Alcohol use: No Travel Screening Question Response Have you been in contact with someone who was sick? No / Unsure Do you have any of the following new or worsening symptoms? None of these Have you traveled internationally or domestically in the last month? No Travel History Travel since 12/26/24 No documented travel since 12/26/24 Occupational and travel history reviewed as pertinent to medical care. OBJECTIVE: VS: Vitals: 01/26/25 0844 BP: 137/69 Pulse: 88 Resp: 18 Temp: 98 ??F (36.7 ??C) SpO2: 95% Body mass index is 31.25 kg/m??. Physical Exam Vitals and nursing note reviewed. Constitutional: Appearance: She is well-developed. She is not ill-appearing. HENT: Head: Normocephalic. Right Ear: External ear normal. Left Ear: External ear normal. Nose: Nose normal. Eyes: Conjunctiva/sclera: Conjunctivae normal. Neck: Thyroid: No thyromegaly. Vascular: No JVD. Cardiovascular: Rate and Rhythm: Normal rate. Rhythm irregular. Pulses: Normal pulses. Heart sounds: Normal heart sounds. Pulmonary: Effort: Pulmonary effort is normal. Breath sounds: Normal breath sounds. Abdominal: General: Bowel sounds are normal. Palpations: Abdomen is soft. Tenderness: There is no abdominal tenderness. Musculoskeletal: General: No signs of injury. Cervical back: Neck supple. No rigidity. Comments: Trace to 1+ BLE edema Skin: General: Skin is warm and dry. Capillary Refill: Capillary refill takes less than 2 seconds. Findings: Bruising (scattered on arms of varying ages) present. No rash. Neurological: Mental Status: She is alert. Mental status is at baseline. Motor: No abnormal muscle tone. Radiology/ Procedures/Labs: Pertinent imaging and laboratory studies were reviewed as noted above. Current Orders Reviewed: amLODIPine 2.5 mg Oral Daily amoxicillin-clavulanate 1 Tablet Oral BID apixaban 5 mg Oral BID aspirin 81 mg Oral Daily atorvastatin 10 mg Oral Every Other Night famotidine 20 mg Oral Daily fUROsemide 20 mg Oral Daily Insulin Calculator - FSBS (Correction Only) Input 1 Each MISCELLANEOUS QID MEALTIME/HS And insulin aspart (NovoLOG) - Correction - Calculator 0-40 Units Subcutaneous QID MEALTIME/HS lisinopriL 10 mg Oral BID sertraline 50 mg Oral Daily acetaminophen, dextrose, glucagon AND sterile water, morphine, sodium chloride 0.9%, sodium chloride 0.9%, sodium chloride 0.9%, sodium chloride 0.9%, tiZANidine Kan Longoria MD [1] Allergies Allergen Reactions Amoxicillin (Bulk) Other (See Comments) Makes me loopy Codeine Other (See Comments) Makes me loopy/crazy [2] Past Medical History: Diagnosis Date CAD (coronary artery disease) High blood pressure Hyperlipidemia [3] Past Surgical History: Procedure Laterality Date APPENDECTOMY 04/30/1949 CARDIAC SURGERY 2 stents EYE SURGERY inplant HYSTERECTOMY 04/30/1974 total [4] Family History Problem Relation Age of Onset High Blood Pressure Father Heart Disease Father Diabetes Mother Severe DM High Blood Pressure Mother Osteoporosis Mother Diabetes Brother 3x Diabetes Sister High Blood Pressure Maternal Grandmother Osteoporosis Maternal Grandmother Heart Attack Maternal Grandfather High Blood Pressure Paternal Grandmother Osteoporosis Paternal Grandmother High Blood Pressure Paternal Grandfather documented in this encounter Consult Notes * Alex Schmidt MD - 01/26/2025 9:30 AM EDTAssociated Order(s): IP CONSULT TO CARDIOLOGY Heart & Vascular Consult Note PATIENT: Penny Chang 0 PCP: Fadi Christy MD Primary Aircraft Restorer: Wally I would like to thank Kavitha Gregorio MD for requesting me to see Penny Chnag for cardiac consultation for CP. History provided by: EMR, patient HPI: Penny Chang is a 84 y.o. female with PMH of CAD s/p Stent OM 2015, HFpEF, chronic afib, HTN, HLD, and DM who presents to ED with c/o CP for past couple of days. The pain she came to ED for was a tightness in throat and feeling she could not swallow. She reports having some diarrhea and nausea past few days too. When she got the pain in her throat she did have some diaphoresis. She also reportsa pain in her left rib cage which she was seen for in ED [facility]. At that time she was told he had a small blood clot in her lung and was instructed to continue eliquis. This pain feels like her previous pleurisy symptoms. Worse with deep breath and position changes.Morphine has been helping with this pain. She has significant bruising on left side and back. She denies fall or trauma to this area, but thinks it may be from a icyhot roller she had been using for this pain. Echocardiogram: Results for orders placed during the hospital encounter of 09/24/23 EC ECHOCARDIOGRAM COMPLETE W DOPPLER AND COLOR FLOW MAPPING Impression Conclusions * Left ventricular function is normal with an estimated ejection fraction of 55-60%. * Left ventricular segmental wall motion is normal. * There is no increased left ventricular wall thickness. * Left ventricular chamber dimension is normal. * The left ventricular diastolic function is normal. * Left atrial chamber dimension is moderately enlarged. * Right atrial chamber dimension is mildly enlarged. * Normal inferior vena cava measuring 2.10 cm with >50% collapse upon inspiration consistent with normal right atrial pressure, 3 mmHg. * Right ventricular chamber dimension is normal. * Right ventricular systolic function is normal. * Estimated pulmonary artery systolic pressure is 26 mmHg. * Non specific thickening of the tricuspid valve leaflets. Stress: 09/2023 * No evidence of myocardial ischemia or infarction. * Normal left ventricular size and low normal left ventricular systolic function. Coronary angiography: 06/2020 Tortuous cors LM: Nl LAD: Normal CX: normal RCA; Dom, Normal EDP 10 EF 60% Family History- Family History[1] Social History- Social History Tobacco Use Smoking status: Never Passive exposure: Never Smokeless tobacco: Never Substance Use Topics Alcohol use: No ROS: Denies: Constitutional: fever, chills, weight loss ENT: headaches, LOC, runny nose Cardiovascular: palpitations, orthopnea, syncope Pulmonary: cough, sputum production, wheezing and hemoptysis. Gastrointestinal: abdominal pain, nausea, vomiting, constipation, diarrhea, hematochezia and melena. 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 06/01/24 01/25/2025 at 8:[address] Lo MD amoxicillin-clavulanate (AUGMENTIN) 875-125 mg Oral Tablet Take 875 mg by mouth 2 times daily. 01/25/2025 at 8:00 AM Provider, Historical apixaban (ELIQUIS) 5 mg Oral Tablet Take 1 Tablet by mouth 2 times daily. 06/01/24 01/25/2025 at 8:[address] Lo MD artificial tear (TEARS) Opht Drops Place 1 Drop into both eyes daily. 01/25/2025 at 8:00 AM Provider, Historical ascorbic acid, vitamin C, (VITAMIN C) 1,000 mg Oral Tablet Take 1,000 mg by mouth daily. 01/25/2025 at 8:00 AM Provider, Historical aspirin 81 mg Oral Tablet, Chewable Take 1 Tab by mouth daily. 11/01/15 01/25/2025 at 8:00 AM Keila Cabello APRN Cholecalciferol, Vitamin D3, 125 mcg (5,000 unit) Oral Tablet Take 5,000 Units by mouth daily. 01/25/2025 at 8:00 AM Provider, Historical famotidine (PEPCID) 20 mg Oral Tablet Take 20 mg by mouth daily. 01/25/2025 at 8:00 AM Provider, Historical fUROsemide (LASIX) 20 mg Oral Tablet Take 1 Tablet by mouth every other day. Patient taking differently: Take 20 mg by mouth daily. 06/01/24 01/25/2025 at 8:[address] Lo MD lisinopriL (PRINIVIL;ZESTRIL) 10 mg Oral Tablet Take 1 Tablet by mouth 2 times daily. 06/01/24 01/25/2025 at 8:[address] Lo MD metFORMIN (GLUCOPHAGE) 500 mg Oral Tablet Take 1 Tab by mouth daily. 12/31/19 01/25/2025 at 8:00 AM Provider, Historical MULTIVITAMIN ORAL Take 1 Tablet by mouth daily. 01/25/2025 at 8:00 AM Provider, Historical sertraline (ZOLOFT) 50 mg Oral Tablet Take 50 mg by mouth daily. 08/09/20 01/25/2025 at 8:00 AM Provider, Historical simvastatin (ZOCOR) 10 mg Oral Tablet Take 1 Tablet by mouth nightly. 06/01/24 01/24/2025 at 9:[address] Lo MD Inpatient Medications: amLODIPine 2.5 mg Oral Daily amoxicillin-clavulanate 1 Tablet Oral BID apixaban 5 mg Oral BID aspirin 81 mg Oral Daily atorvastatin 10 mg Oral Every Other Night famotidine 20 mg Oral Daily fUROsemide 20 mg Oral Daily Insulin Calculator - FSBS (Correction Only) Input 1 Each MISCELLANEOUS QID MEALTIME/HS And insulin aspart (NovoLOG) - Correction - Calculator 0-40 Units Subcutaneous QID MEALTIME/HS lisinopriL 10 mg Oral BID sertraline 50 mg Oral Daily Past Surgical History Surgical History[3] Allergy Allergies[4] Problem List[5] BP 137/69 (BP Location: Left arm, Patient Position: Sitting) Pulse 88 Temp 98 ??F (36.7 ??C) (Oral) Resp 18 Ht 5' (1.524 m) Wt 160 lb (72.6 kg) SpO2 95% BMI 31.25 kg/m?? I/O 24 hours: Intake/Output Summary (Last 24 hours) at 01/26/2025 0930 Last data filed at 01/26/2025 0408 Gross per 24 hour Intake 120 ml Output -- Net 120 ml Diagnostic tests The most recent cardiovascular imaging studies available in [facility] EMR were reviewed at time of consultation Heart Failure Documentation Will continue to optimize GDMT and device-based therapies for HFrEF.: Exam: Pt lying in bed in no distress. Head: Atraumatic, normocephalic. Neck: no JVD , supple Heart: irreg rate/rhythm, S1, S2 , chest wall tender Lung: diminished Abd: soft, Ext: 2+ BLE edema, Neuro: Alert and oriented x 3 Mood and affect: appropriate Skin: warm and dry Telemetry: afib, occ PVC's Assessment CP -atypical for angina -hsTn 17/, not suggestive of ACS -EKG with no acute ischemic changes -CTA chest/abd/pelvis with No aortic dissection or other acute aortic pathology. No acute abnormality in the chest, abdomen, or pelvis. CAD -s/p Stent OM and POBA circ 2016 -cath 2020 with normal cors. 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 Further input from Dr. Brayan Flores, CARPENTER SUPERVISOR [facility] Disposition Perspective - Medically Ready for Discharge: No Anticipated Discharge: today or tomorrow Discharge when / if: pending decision on ischemic eval Attending Aircraft Restorer Attestation: I have seen and examined the patient. I have discussed with the nurse practitioner and agree with his/her findings as documented in their note with my additions below: 84 year old female with history of CAD, afib, HTN, HLD, DM, PE who initially presented to the hospital on 01/25/25 with chest pain. Cardiology consulted on 01/26/25 for chest pain. Here initially with chest pain. On my initial assessment she reports not really chest discomfort but jaw discomfort. She reports the day prior she was at [facility] and diagnosed withPNA, PE and diverticulitis. Breathing has been fine and she denies shortness of breath. Chronic edema that is better than usual. Initial troponins 17, 18. Initial Cr 0.66, Na 140, K 3.1, WBC 5, Hgb 11.8, Plt 253. CTA chest/abd/pelvis with no dissection or acute abnormality. CXR PNA versus ateletasis. ECG afib without ischemic changes. History of CAD, HFpEF, afib. PCI OM 2015. Nuclear stress 09/2023 without ischemia. LHC 06/2020 with normal coronaries. TTE 08/2023 with LVEF 55-60%, normal RV function, moderate LAE, mild MR, mild PI, AscAo 3.6/1.9. Home cardiac related meds include amlodipine, eliquis, asa, simvastatin, lasix, lisinopril. On exam irregular rhythm, no JVD, clear lungs, 1+ edema above the ankles. Blood pressure 137/69. Cr0.58, Na 140, K 3.9. Telemetry afib with rates 60s-100s. Current cardiac related meds include amlodipine, eliquis, asa, lipitor, lasix, lisinopril. Impression is here with no chest pain but some jaw pain. She reports this is not similar to her prior cardiac pain but troponins mildly elevated. Not in ACS pattern, probably demand ischemia. Edema on exam, otherwise euvolemic. Plan: - Nuclear stress test. - Echocardiogram. - If nuclear stress and echo okay, can go home from cardiac perspective. Please call with any questions. Alex Schmidt MD [facility] [1] Family History Problem Relation Age of Onset High Blood Pressure Father Heart Disease Father Diabetes Mother Severe DM High Blood Pressure Mother Osteoporosis Mother Diabetes Brother 3x Diabetes Sister High Blood Pressure Maternal Grandmother Osteoporosis Maternal Grandmother Heart Attack Maternal Grandfather High Blood Pressure Paternal Grandmother Osteoporosis Paternal Grandmother High Blood Pressure Paternal Grandfather [2] Past Medical History: Diagnosis Date CAD (coronary artery disease) High blood pressure Hyperlipidemia [3] Past Surgical History: Procedure Laterality Date APPENDECTOMY 04/30/1949 CARDIAC SURGERY 2 stents EYE SURGERY inplant HYSTERECTOMY 04/30/1974 total [4] Allergies Allergen Reactions Amoxicillin (Bulk) Other (See Comments) Makes me loopy Codeine Other (See Comments) Makes me loopy/crazy [5] Patient Active Problem List Diagnosis DDD (degenerative disc disease) Diverticulosis ASHD (arteriosclerotic heart disease) 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 Pt taking azithromycin for pneumonia. No CPTA for cp The patient is an 84-year-old female who presents complaining of chest pain. She has been having chest pain for couple of days. She went to the hospital in [place], [place] yesterday. Her family tells me that the patient was found to have a small PE on the CT scan of her abdomen. Chest x-ray didnot show pneumonia, but her CT abdomen did show pneumonia. She was started on Zithromax. She tells me that she is having a chest pressure which radiates into both sides of her neck anteriorly. She feels very lightheaded like she is going to pass out. She also feels short of breath. She denies having nausea or vomiting. She has not had a fever recently. She has coronary artery stents and chronic A-fib. She was on Eliquis when she developed the pulmonary emboli. This is the first time she was told that she had pulmonary emboli. Patient History Allergies[1] Home Medications: Prior to Admission medications Medication Sig Start Date End Date Last Dose Authorizing Provider ACETAMINOPHEN ORAL Take by mouth every 4 hours as needed for Pain. Provider, Historical amLODIPine (NORVASC) 2.5 mg Oral Tablet Take 1 Tablet by mouth daily. 06/01/24 Lane Lo MD apixaban (ELIQUIS) 5 mg Oral Tablet Take 1 Tablet by mouth 2 times daily. 06/01/24 Lane Lo MD artificial tear (TEARS) Opht Drops Apply 1 Drop to eye. Provider, Historical ascorbic acid, vitamin C, (VITAMIN C) 1,000 mg Oral Tablet Take 1,000 mg by mouth daily. Provider, Historical aspirin 81 mg Oral Tablet, Chewable Take 1 Tab by mouth daily. 11/01/15 Keila Cabello APRN Cholecalciferol, Vitamin D3, 125 mcg (5,000 unit) Oral Tablet Take by mouth. Provider, Historical famotidine (PEPCID) 20 mg Oral Tablet Take by mouth as needed for Heartburn. Provider, Historical fUROsemide (LASIX) 20 mg Oral Tablet Take 1 Tablet by mouth every other day. 06/01/24 Lane Lo MD isosorbide mononitrate (IMDUR) 30 mg Oral Tablet Sustained Release 24 hr Take 1 Tablet by mouth every morning. Patient not taking: Reported on 12/21/2024 09/16/23 Lane Lo MD lisinopriL (PRINIVIL;ZESTRIL) 10 mg Oral Tablet Take 1 Tablet by mouth 2 times daily. 06/01/24 Lane Lo MD meclizine (ANTIVERT) 25 mg Oral Tablet 25 mg 3 times daily. 04/30/22 Provider, Historical metFORMIN (GLUCOPHAGE) 500 mg Oral Tablet Take 1 Tab by mouth daily. 12/31/19 Provider, Historical MULTIVITAMIN ORAL Take by mouth. Provider, Historical sertraline (ZOLOFT) 50 mg Oral Tablet Take 50 mg by mouth daily. 08/09/20 Provider, Historical simvastatin (ZOCOR) 10 mg Oral Tablet Take 1 Tablet by mouth nightly. 06/01/24 Lane Lo MD Past Medical History: Past Medical History[2] Social History: reports that she has never smoked. She has never been exposed to tobacco smoke. Shehas never used smokeless tobacco. She reports that she is not currently sexually active and has hadpartner(s) who are male. She reports using the following method of control/protection: Post-menopausal. She reports that she does not drink alcohol and does not use drugs. E-Cigarettes (such as Vapes or Juul) E-Cigarette Use Never User Family History: Family History[3] Surgical History: Surgical History[4] Review of Systems Review of Systems All other systems reviewed and are negative. Physical Exam Blood pressure 142/87, pulse 104, temperature 97.3 ??F (36.3 ??C), temperature source Oral, resp. rate 22, height 5' (1.524 m), weight 160 lb (72.6 kg), SpO2 99%, not currently . Physical Exam Vitals and nursing note reviewed. Constitutional: General: She is not in acute distress. Appearance: She is well-developed. She is obese. Eyes: Conjunctiva/sclera: Conjunctivae normal. Pupils: Pupils are equal, round, and reactive to light. Cardiovascular: Rate and Rhythm: Normal rate. Rhythm irregular. Heart sounds: No murmur heard. No friction rub. No gallop. Pulmonary: Effort: Pulmonary effort is normal. Breath sounds: Examination of the right-lower field reveals rales. Rales present. Abdominal: General: There is no distension. Palpations: Abdomen is soft. Tenderness: There is no abdominal tenderness. Comments: Blotchy areas of older appearing ecchymosis across the left flank. Family tells me that she has been rubbing IcyHot on the area and thinks that is causing the bruising. The patient had quite a bit of pain in that region when she went from lying down to sitting up for the long exam. Musculoskeletal: Cervical back: Normal range of motion. Right lower leg: Edema present. Left lower leg: Edema present. Skin: General: Skin is warm and dry. Findings: No rash. Neurological: General: No focal deficit present. Mental Status: She is alert. Psychiatric: Mood and Affect: Mood is anxious. Procedures Last cardiac catheterization: CARDIAC PROCEDURE NOTE Penny Chang July 10, 2020 PROCEDURE(S): LHC, Select Coronary Angio, LVG FINDINGS: Tortuous cors LM: Nl LAD: Normal CX: normal RCA; Dom, Normal EDP 10 EF 60% EKG shows atrial fibrillation with Radiology/EKG/Labs: EKG shows atrial fibrillation with a ventricular response of 75. 1 PVC on the tracing. No acute ischemic changes by my interpretation. Results for orders placed or performed during the hospital encounter of 01/25/25 XR CHEST AP PORTABLE Narrative XR CHEST AP PORTABLE, 01/25/2025 3:23 PM CLINICAL HISTORY: -cp COMPARISON: 07/08/2020 PROCEDURE COMMENTS: AP portable technique. FINDINGS: Support devices: No visible support devices. Heart size normal. There is a faint left basilar opacity, pneumonia versus atelectasis. Small left effusion suspected. Right lung is clear. No pneumothorax. Impression Faint left basilar opacity, pneumonia versus atelectasis. Small left effusion suspected. - Note: Radiology results need to be interpreted within a comprehensive clinical context. If you have questions about the radiology report, please contact the office of the ordering clinician. CT ANGIOGRAM CHEST ABDOMEN PELVIS W CONTRAST Narrative CT ANGIOGRAM CHEST ABDOMEN PELVIS W CONTRAST 01/25/2025 3:53 PM CLINICAL HISTORY: -Chest pain and left flank pain. COMPARISON: CT chest, abdomen, and pelvis dated 11/23/2019 PROCEDURE COMMENTS: Multidetector CT angiography of the region of interest. Isovue 370 IV contrast given as recorded in EPIC. Multiplanar reconstructions generated and reviewed, including 3D MIPS. Dose 1 : CT DLP Total : 794 mGycm DLP Spiral Max : 572.81 mGycm Maximum CTDI Vol : 9.28 mGy FINDINGS: Vascular Findings No CT evidence of acute aortic pathology. Specifically, no intramural hematoma, dissection flap or pseudoaneurysm. The thoracic aorta is normal in caliber. The visualized portions of the brachiocephalic, subclavian and upper extremity vasculature are patent. No central occlusive pulmonary embolism. Mild enlargement of the main pulmonary artery, suggestive of pulmonary artery hypertension. No acute aortic abnormality involving the abdominal aorta or branches. No aneurysm. Conventional celiac axis anatomy. The celiac artery and major branches, superior mesenteric artery, and inferior mesenteric artery are patent with mild nonflow limiting atherosclerotic disease. Single bilateral renal arteries are patent, with mild nonflow limiting ostial plaque of the left renal artery and minimal on the right. Nonvascular Chest Findings No acute or suspicious abnormalities included soft tissues lower neck. Patent central airways. Minimal bibasilar atelectasis and additional scarring/fibrotic changes in the medial left lung base adjacent to thoracic osteophytes. Punctate calcified granulomas. No focal consolidation. No layering pleural effusion. No pneumothorax. No acute osseous abnormalities. Nonvascular Abdomen/Pelvic Findings The liver, spleen, adrenal glands, atrophic pancreas, and kidneys are unremarkable. Normal gallbladder and biliary tree. No hydronephrosis. Normal urinary bladder. No bowel obstruction. No focal bowel wall thickening. Sigmoid predominant diverticulosis without CT evidence of acute diverticulitis. No mesenteric or retroperitoneal lymphadenopathy. No acute osseous findings. Extensive degenerative changes throughout the thoracolumbar spine. Multiple thoracic hemangiomas. Impression 1. No aortic dissection or other acute aortic pathology. 2. No acute abnormality in the chest, abdomen, or pelvis. 3. Ancillary findings are described above. - Note: Radiology results need to be interpreted within a comprehensive clinical context. If you have questions about the radiology report, please contact the office of the ordering clinician. CBC Result Value Ref Range WBC 5.0 3.7 - 10.3 x10(3)/mcL RBC 3.77 (L) 3.90 - 5.20 x10(6)/mcL Hgb 11.8 11.2 - 15.7 g/dL Hct 36.0 34.0 - 45.0 % MCV 95.5 80.0 - 100.0 fL MCH 31.3 26.0 - 34.0 pg MCHC 32.8 30.7 - 35.5 g/dL RDW 14.6 <=14.9 % Platelet 253 155 - 369 x10(3)/mcL MPV 9.4 8.8 - 12.5 fL BASIC METABOLIC PANEL Result Value Ref Range Sodium 140 136 - 145 mmol/L Potassium 3.1 (L) 3.5 - 5.0 mmol/L Chloride 102 98 - 107 mmol/L Total CO2 21 (L) 22 - 29 mmol/L Anion Gap 17 (H) 7 - 16 mmol/L Calcium 9.6 8.8 - 10.4 mg/dL Glucose Lvl 125 (H) 70 - 99 mg/dL BUN 12 8 - 23 mg/dL Creatinine 0.66 0.51 - 1.30 mg/dL eGFR (CKD-EPIcr 2020) 85 >=60 mL/min/1.73 m2 TROPONIN-T HIGH SENSITIVITY BASELINE W/ REFLEX Result Value Ref Range [id number]-J 17 (H) <14 ng/L Narrative Ingestion of joshua doses of biotin (>5 mg/day) taken within 8 hours of drawing blood sample can interfere with this immunoassay test. TROPONIN-T HIGH SENSITIVITY 2HR Result Value Ref Range kl-[id number]-M 2HR 16 (H) <14 ng/L hs-cTnT 2Hr Delta from Baseline -1 <4 ng/L Narrative Ingestion of joshua doses of biotin (>5 mg/day) taken within 8 hours of drawing blood sample can interfere with this immunoassay test. EK EKG 12 LEAD Narrative NOTICE: Preliminary tracing available for review; Final Interpretation by physician to follow. Impression [facility] Test Date: 2025-01-25 Pat Name: PENNY CHANG Department: DEPID Room: Gender: Female Fisher Gill Net: Jose : 1940 Requested By: [facility] Order Number: [id number] Reading MD: Measurements Intervals [place] Rate: 75 P: 0 MI: 0 QRS: -1 QRSD: 95 T: 36 QT: 378 QTc: 423 Interpretive Statements ATRIAL FIBRILLATION WITH ABERRANT CONDUCTION OR VENTRICULAR PREMATURE COMPLEXES LOW QRS VOLTAGE IN PRECORDIAL LEADS PATTERN CONSISTENT WITH PULMONARY DISEASE ED Course: Appropriate laboratory and radiology studies reviewed The patient presents complaining of chest pressure which radiates into the anterior neck on both sides. Initial EKG does not show any acute ischemic findings. She does have coronary artery disease. Her last cardiac catheterization from 4 years ago was printed above. She had evaluation at another hospital yesterday showing a small PE and pneumonia. A cardiac workup was done. She was given morphineand Zofran IV. If her GFR is okay, then I will probably do CT scans of the chest, abdomen and pelvis to evaluate her pain. CT angiogram of the chest, abdomen and pelvis does not show dissection or any central pulmonary emboli. CBC within normal limits. Chemistry panel shows potassium of 3.1 and otherwise is normal. She was given potassium 40 mill equivalents by mouth for her hypokalemia. Initial troponin was slightly elevated at 17. Second troponin went down to 16. The patient requested additional pain medications after receiving morphine initially. A lot of her pain seems to be localized to the left flank where she has ecchymosis, but the CT did not show any abnormalities in that region. Given her ongoing chest pain, she will be admitted to the hospital for further evaluation. Dr. Gregorio was contacted and will be admitting. ED Clinical Impression: 1. Acute chest pain 2. Lightheadedness Critical Care time MDM Medical Decision Making Problems Addressed: Acute chest pain: complicated acute illness or injury Lightheadedness: complicated acute illness or injury Amount and/or Complexity of Data Reviewed Labs: ordered. Radiology: ordered. Risk Prescription drug management. Decision regarding hospitalization. Condition at Discharge/Transfer from Department: Stable This chart was completed using voice recognition technology and may contain unintended errors [1] Allergies Allergen Reactions Amoxicillin (Bulk) Other (See Comments) Makes me loopy Codeine Other (See Comments) Makes me loopy/crazy [2] Past Medical History: Diagnosis Date CAD (coronary artery disease) High blood pressure Hyperlipidemia [3] Family History Problem Relation Age of Onset High Blood Pressure Father Heart Disease Father Diabetes Mother Severe DM High Blood Pressure Mother Osteoporosis Mother Diabetes Brother 3x Diabetes Sister High Blood Pressure Maternal Grandmother Osteoporosis Maternal Grandmother Heart Attack Maternal Grandfather High Blood Pressure Paternal Grandmother Osteoporosis Paternal Grandmother High Blood Pressure Paternal Grandfather [4] Past Surgical History: Procedure Laterality Date APPENDECTOMY 04/30/1949 CARDIAC SURGERY 2 stents EYE SURGERY inplant HYSTERECTOMY 04/30/1974 total Jose Calabrese MD 01/25/25 [id number] documented in this encounter Miscellaneous Notes * Utilization Review Notes - Maame Bernabe RN - 01/27/2025 1:27 PM EDT ADMIT TO OBSERVATION 01/25 OBS ORDER ON CHART ADMIT TO TELEMETRY UNIT Acute chest pain Cardiology consult Stress reassuring Echo pending * Utilization Review Notes - Maame Bernabe RN - 01/27/2025 9:58 AM EDT ADMIT TO OBSERVATION 01/25 OBS ORDER ON CHART ADMIT TO TELEMETRY UNIT Acute chest pain Cardiology consult Stress reassuring Echo pending CARDIOLOGY CONSULT * Utilization Review Notes - Maame Bernabe RN - 01/26/2025 2:55 PM EDT ADMIT TO OBSERVATION 01/25 OBS ORDER ON CHART ADMIT TO TELEMETRY UNIT CHEST PAIN CARDIOLOGY CONSULT IV MORPHINE X3 KCL PO X2 STRESS TEST ECHO * Utilization Review Notes - Maame Bernabe RN - 01/26/2025 10:35 AM EDT ADMIT TO OBSERVATION 01/25 OBS ORDER ON CHART ADMIT TO TELEMETRY UNIT CHEST PAIN CARDIOLOGY CONSULT IV MORPHINE X3 KCL PO X2 * Utilization Review Notes - Amy Fonseca RN - 01/25/2025 6:20 PM EDT PATIENT ADMISSION OBSERVATION ON 01/25* - OBSERVATION ORDER ON CHART - ADMISSION TO UNIT FOR Acute chest pain VITALS:VSS on r/a LABS:K+ 3.1 MEDS:Pain meds, K+ replacement TESTS:EKG, Chest Xray, CT angio of chest NOTES:Per ED Note on 01/25 84-year-old female who presents complaining of chest pain. She has been having chest pain for couple of days. complaining of chest pressure which radiates into the anterior neck on both sides. Initial EKG doesnot show any acute ischemic findings. She does have coronary artery disease. Her last cardiac catheterization from 4 years ago was printed above. She had evaluation at another hospital yesterday showing a small PE and pneumonia. A cardiac workup was done. She was given morphine and Zofran IV. D/C PLAN: CC FOLLOWING documented in this encounter Plan of Treatment Upcoming Encounters Date Type Department Care Team (Late st Contact Info) Description 02/03/2025 10:00 AM EDT Office Visit [facility] [address] [id number] Megha Wilder PA [address] [place] [address] [place] [address] 07/12/2025 10:00 AM EDT Office Visit [facility] [address] [id number] [address] Lo MD [address] [place] [address] [place] [address] documented as of this encounter Procedures Procedure Name Priority Date/Time Associated Diagnosis Comments SCANNED EKG 01/28/2025 1:27 PM EDT GLUCOSE METER POC Routine 01/27/2025 1:37 PM EDT EC ECHOCARDIOGRAM COMPLETE W DOPPLER AND COLOR FLOW MAPPING Routine 01/27/2025 12:54 PM EDT BASIC METABOLIC PANEL JOCELYNE 01/27/2025 8:11 AM EDT GLUCOSE METER POC Routine 01/27/2025 8:07 AM EDT ECG AND WAVEFORMS - TELEMETRY Routine 01/27/2025 7:18 AM EDT EK EKG 12 LEAD JOCELYNE 01/27/2025 5:04 AM EDT ECG AND WAVEFORMS - TELEMETRY Routine 01/27/2025 4:55 AM EDT ECG AND WAVEFORMS - TELEMETRY Routine 01/26/2025 11:59 PM EDT GLUCOSE METER POC Routine 01/26/2025 8:28 PM EDT ECG AND WAVEFORMS - TELEMETRY Routine 01/26/2025 7:04 PM EDT GLUCOSE METER POC Routine 01/26/2025 4:36 PM EDT NM MYOCARDIAL PERFUSION SPECT STRESS AND REST JOCELYNE 01/26/2025 2:[address] STRESS TEST LEXISCAN Routine 01/26/2025 2:28 PM EDT IP CONSULT TO NUTRITION Routine 01/26/2025 1:16 PM EDT GLUCOSE METER POC Routine 01/26/2025 11:28 AM EDT MAGNESIUM LEVEL JOCELYNE 01/26/2025 10:29 AM EDT BASIC METABOLIC PANEL JOCELYNE 01/26/2025 10:29 AM EDT GLUCOSE METER POC Routine 01/26/2025 7:32 AM EDT ECG AND WAVEFORMS - TELEMETRY Routine 01/26/2025 7:05 AM EDT IP CONSULT TO CARDIOLOGY Routine 01/26/2025 5:52 AM EDT Procedure Note - Alex Schmidt MD - 01/26/2025 9:30 AM EDTThis note is in progress. Heart & Vascular Consult Note PATIENT: Penny Chang 0 PCP: Fadi Christy MD Primary Aircraft Restorer: Wally I would like to thank Kavitha Gregorio MD for requesting me to see Penny Medina for cardiac consultation for CP. History provided by: EMR, patient HPI: Penny Chang is a 84 y.o. female with PMH of CAD s/p Stent OM 2016,HFpEF, chronic afib, HTN, HLD, and DM who presents to ED with c/o CP forpast couple of days. The pain she came to ED for was a tightness in throatand feeling she could not swallow. She reports having some diarrhea andnausea past few days too. When she got the pain in her throat she did havesome diaphoresis. She also reports a pain in her left rib cage [facility] At that timeshe was told he had a small blood clot in her lung and was instructed tocontinue eliquis. This pain feels like her previous pleurisy symptoms.Worse with deep breath and position changes. Morphine has been helpingwith this pain. She has significant bruising on left side and back. Shedenies fall or trauma to this area, but thinks it may be from a icyhotroller she had been using for this pain. Echocardiogram: Results for orders placed during the hospital encounter of 09/24/23 EC ECHOCARDIOGRAM COMPLETE W DOPPLER AND COLOR FLOW MAPPING Impression Conclusions * Left ventricular function is normal with an estimated ejection fractionof 55-60%. * Left ventricular segmental wall motion is normal. * There is no increased left ventricular wall thickness. * Left ventricular chamber dimension is normal. * The left ventricular diastolic function is normal. * Left atrial chamber dimension is moderately enlarged. * Right atrial chamber dimension is mildly enlarged. * Normal inferior vena cava measuring 2.10 cm with >50% collapse upon inspiration consistent with normal right atrial pressure, 3 mmHg. * Right ventricular chamber dimension is normal. * Right ventricular systolic function is normal. * Estimated pulmonary artery systolic pressure is 26 mmHg. * Non specific thickening of the tricuspid valve leaflets. Stress: 09/2023 * No evidence of myocardial ischemia or infarction. * Normal left ventricular size and low normal left ventricularsystolic function. Coronary angiography: 06/2020 Tortuous cors LM: Nl LAD: Normal CX: normal RCA; Dom, Normal EDP 10 EF 60% Family History- Family History[1] Social History- Social History Tobacco Use Smoking status: Never Passive exposure: Never Smokeless tobacco: Never Substance Use Topics Alcohol use: No ROS: Denies: Constitutional: fever, chills, weight loss ENT: headaches, LOC, runny nose Cardiovascular: palpitations, orthopnea, syncope Pulmonary: cough, sputum production, wheezing and hemoptysis. Gastrointestinal: abdominal pain, nausea, vomiting, constipation,diarrhea, hematochezia and melena. 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 Taking Provider, Historical amLODIPine (NORVASC) 2.5 mg Oral Tablet Take 1 Tablet by mouth daily.06/01/24 01/25/2025 at 8:[address] Lo MD amoxicillin-clavulanate (AUGMENTIN) 875-125 mg Oral Tablet Take 875 mg bymouth 2 times daily. 01/25/2025 at 8:00 AM Provider, Historical apixaban (ELIQUIS) 5 mg Oral Tablet Take 1 Tablet by mouth 2 times daily.06/01/24 01/25/2025 at 8:[address] Lo MD artificial tear (TEARS) Opht Drops Place 1 Drop into both eyes daily.01/25/2025 at 8:00 AM Provider, Historical ascorbic acid, vitamin C, (VITAMIN C) 1,000 mg Oral Tablet Take 1,000 mgby mouth daily. 01/25/2025 at 8:00 AM Provider, Historical aspirin 81 mg Oral Tablet, Chewable Take 1 Tab by mouth daily. at 8:00 AM Keila Cabello APRN Cholecalciferol, Vitamin D3, 125 mcg (5,000 unit) Oral Tablet Take 5,000Units by mouth daily. 01/25/2025 at 8:00 AM Provider, Historical famotidine (PEPCID) 20 mg Oral Tablet Take 20 mg by mouth daily.01/25/2025 at 8:00 AM Provider, Historical fUROsemide (LASIX) 20 mg Oral Tablet Take 1 Tablet by mouth every otherday. Patient taking differently: Take 20 mg by mouth daily. 06/01/24 01/25/2025t 8:[address] Lo MD lisinopriL (PRINIVIL;ZESTRIL) 10 mg Oral Tablet Take 1 Tablet by mouth 2times daily. 06/01/24 01/25/2025 at 8:[address] Lo MD metFORMIN (GLUCOPHAGE) 500 mg Oral Tablet Take 1 Tab by mouth daily.12/31/19 01/25/2025 at 8:00 AM Provider, Historical MULTIVITAMIN ORAL Take 1 Tablet by mouth daily. 01/25/2025 at 8:00 AMProvider, Historical sertraline (ZOLOFT) 50 mg Oral Tablet Take 50 mg by mouth daily. at 8:00 AM Provider, Historical simvastatin (ZOCOR) 10 mg Oral Tablet Take 1 Tablet by mouth nightly.06/01/24 01/24/2025 at 9:[address] Lo MD Inpatient Medications: amLODIPine 2.5 mg Oral Daily amoxicillin-clavulanate 1 Tablet Oral BID apixaban 5 mg Oral BID aspirin 81 mg Oral Daily atorvastatin 10 mg Oral Every Other Night famotidine 20 mg Oral Daily fUROsemide 20 mg Oral Daily Insulin Calculator - FSBS (Correction Only) Input 1 Each MISCELLANEOUSQID MEALTIME/HS And insulin aspart (NovoLOG) - Correction - Calculator 0-40 UnitsSubcutaneous QID MEALTIME/HS lisinopriL 10 mg Oral BID sertraline 50 mg Oral Daily Past Surgical History Surgical History[3] Allergy Allergies[4] Problem List[5] BP 137/69 (BP Location: Left arm, Patient Position: Sitting) Pulse 88 Temp 98 F (36.7 C) (Oral) Resp 18 Ht 5' (1.524 m) Wt 160 lb(72.6 kg) SpO2 95% BMI 31.25 kg/m I/O 24 hours: Intake/Output Summary (Last 24 hours) at 01/26/2025 0930 Last data filed at 01/26/2025 0408 Gross per 24 hour Intake 120 ml Output -- Net 120 ml Diagnostic tests The most recent cardiovascular imaging studies available in [facility] EMR werereviewed at time of consultation Heart Failure Documentation Will continue to optimize GDMT and device-based therapies for HFrEF.: Exam: Pt lying in bed in no distress. Head: Atraumatic, normocephalic. Neck: no JVD , supple Heart: irreg rate/rhythm, S1, S2 , chest wall tender Lung: diminished Abd: soft, Ext: 2+ BLE edema, Neuro: Alert and oriented x 3 Mood and affect: appropriate Skin: warm and dry Telemetry: afib, occ PVC's Assessment CP -atypical for angina -hsTn , not suggestive of ACS -EKG with no acute ischemic changes -CTA chest/abd/pelvis with No aortic dissection or other acute aorticpathology. No acute abnormality in the chest, abdomen, or pelvis. CAD -s/p Stent OM and POBA circ 2015 -cath 2020 with normal cors. 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 Further input from Dr. Brayan Flores, [facility] Disposition Perspective - Medically Ready for Discharge: No Anticipated Discharge: today or tomorrow Discharge when / if: pending decision on ischemic eval Attending Aircraft Restorer Attestation: I have seen and examined the patient. I have discussed with the nursepractitioner and agree with his/her findings as documented in their notewith my additions below: 84 year old female with history of CAD, afib, HTN, HLD, DM, PE whoinitially presented to the hospital on 01/25/25 with chest pain.Cardiology consulted on 01/26/25 for chest pain. Here initially with chest pain. On my initial assessment amandaorts not really chest discomfort but jaw discomfort. She reports theday prior she was at [facility] and diagnosed with PNA, PEand diverticulitis. Breathing has been fine and she denies shortness ofbreath. Chronic edema that is better than usual. Initial troponins 17, 18. Initial Cr 0.66, Na 140, K 3.1, WBC5, Hgb 11.8, Plt 253. CTA chest/abd/pelvis with no dissection or acuteabnormality. CXR PNA versus ateletasis. ECG afib without ischemicchanges. History of CAD, HFpEF, afib. PCI OM 2015. Nuclear stress09/2023 without ischemia. C 06/2020 with normal coronaries. TTE 08/2023with LVEF 55-60%, normal RV function, moderate LAE, mild MR, mild PI,AscAo 3.6/1.9. Home cardiac related meds include amlodipine, eliquis,asa, simvastatin, lasix, lisinopril. On exam irregular rhythm, no JVD, clear lungs, 1+ edema abovethe ankles. Blood pressure 137/69. Cr 0.58, Na 140, K 3.9. Telemetryafib with rates 60s-100s. Current cardiac related meds includeamlodipine, eliquis, asa, lipitor, lasix, lisinopril. Impression is here with no chest pain but some jaw pain. Amandaorts this is not similar to her prior cardiac pain but troponins mildlyelevated. Not in ACS pattern, probably demand ischemia. Edema on exam,otherwise euvolemic. Plan: - Nuclear stress test. - Echocardiogram. - If nuclear stress and echo okay, can go home from cardiac perspective. Please call with any questions. Alex Schmidt MD [facility] [1] Family History Problem Relation Age of Onset High Blood Pressure Father Heart Disease Father Diabetes Mother Severe DM High Blood Pressure Mother Osteoporosis Mother Diabetes Brother 3x Diabetes Sister High Blood Pressure Maternal Grandmother Osteoporosis Maternal Grandmother Heart Attack Maternal Grandfather High Blood Pressure Paternal Grandmother Osteoporosis Paternal Grandmother High Blood Pressure Paternal Grandfather [2] Past Medical History: Diagnosis Date CAD (coronary artery disease) High blood pressure Hyperlipidemia [3] Past Surgical History: Procedure Laterality Date APPENDECTOMY 04/30/1949 CARDIAC SURGERY 2 stents EYE SURGERY inplant HYSTERECTOMY 04/30/1974 total [4] Allergies Allergen Reactions Amoxicillin (Bulk) Other (See Comments) Makes me loopy Codeine Other (See Comments) Makes me loopy/crazy [5] Patient Active Problem List Diagnosis DDD (degenerative disc disease) Diverticulosis ASHD (arteriosclerotic heart disease) 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) Essential hypertension Elevated troponin Paroxysmal A-fib (HCC) Acute chest pain Mixed hyperlipidemia Acute left-sided low back pain without sciatica GLUCOSE METER POC Routine 01/25/2025 8:37 PM EDT ECG AND WAVEFORMS - TELEMETRY Routine 01/25/2025 7:02 PM EDT ADMIT Routine 01/25/2025 5:44 PM EDT TROPONIN-T HIGH SENSITIVITY 2HR Timed 01/25/2025 4:[address] ANGIOGRAM CHEST ABDOMEN PELVIS W CONTRAST STAT 01/25/2025 3:53 PM EDT XR CHEST AP PORTABLE JOCELYEN 01/25/2025 3:23 PM EDT TROPONIN-T HIGH SENSITIVITY BASELINE W/ REFLEX STAT 01/25/2025 2:57 PM EDT CBC STAT 01/25/2025 2:57 PM EDT BASIC METABOLIC PANEL STAT 01/25/2025 2:57 PM EDT SALINE LOCK IV STAT 01/25/2025 2:48 PM EDT EK EKG 12 LEAD STAT 01/25/2025 2:20 PM EDT SALINE LOCK IV STAT 01/25/2025 2:20 PM EDT documented in this encounter Results * SCANNED EKG (01/28/2025 1:27 PM EDT) Anatomical Region Laterality Modality Other 01/28/2025 1:27 PM EDT us Unknown Provider IMG ECG ORDERABLES Final Result * (ABNORMAL) GLUCOSE METER POC (01/27/2025 1:37 PM EDT) [facility] Glucose Meter POC 112(H) 70 - 100 mg/dL 01/27/2025 1:39 PM EDT [facility] Sample Type Capillary 01/27/2025 1:39 PM EDT [facility] Patient Status Non-Critical Patient 01/27/2025 1:39 PM EDT [facility] Blood BLOOD SPECIMEN / Unknown 01/27/2025 1:37 PM EDT 01/27/2025 1:39 PM EDT us Kavitha Gregorio MD POINT OF CARE TEST ORDERABLES F inal Result [facility] [address] [place] [address] * EC ECHOCARDIOGRAM COMPLETE W DOPPLER AND COLOR FLOW MAPPING (01/27/2025 12:54 PM EDT) [facility] LV DIASTOLIC PLAX 4.18 cm PYRAMIS Ejection Fraction 50-55% PYRAMIS MITRAL REGURGITATION moderate PYRAMIS AORTIC STENOSIS no PYRAMIS Anatomical Region Laterality Modality Electrocardiogra phy 01/27/2025 12:2 5 PM EDT Impressions 01/27/2025 3:05 PM EDT Conclusions * Left ventricular chamber dimension is normal. * Left ventricular function is normal with an estimated ejection fraction of 50-55%. * Left ventricular segmental wall motion is grossly normal, however endocardial definition is limited. * The left ventricular diastolic function is indeterminate. * Right ventricular systolic function is reduced. * Estimated pulmonary artery systolic pressure is 43 mmHg. * Left atrial chamber dimension is moderately enlarged. * There is moderate tricuspid valve regurgitation. * There is moderate tricuspid valve regurgitation with a PISA ERO of 0.22 cm2. Narrative Procedure Note America Michaels MD - 01/27/2025 IMPRESSION Conclusions * Left ventricular chamber dimension is normal. * Left ventricular function is normal with an estimated ejectionfraction of 50-55%. * Left ventricular segmental wall motion is grossly normal, however endocardial definition is limited. * The left ventricular diastolic function is indeterminate. * Right ventricular systolic function is reduced. * Estimated pulmonary artery systolic pressure is 43 mmHg. * Left atrial chamber dimension is moderately enlarged. * There is moderate tricuspid valve regurgitation. * There is moderate tricuspid valve regurgitation with a PISA ERO of0.22 cm2. Nani Flores CARPENTER SUPERVISOR IMG ECHO ORDERABLES Final R esult * (ABNORMAL) BASIC METABOLIC PANEL (01/27/2025 8:11 AM EDT) Sodium 138 136 - 145 mmol/L 01/27/2025 8:42 AM EDT [facility] Potassium 4.4 3.5 - 5.0 mmol/L 01/27/2025 8:42 AM EDT [facility] Chloride 104 98 - 107 mmol/L 01/27/2025 8:42 AM EDT [facility] Total CO2 22 22 - 29 mmol/L 01/27/2025 8:42 AM EDT [facility] Anion Gap 12 7 - 16 mmol/L 01/27/2025 8:42 AM EDT [facility] Calcium 9.6 8.8 - 10.4 mg/dL 01/27/2025 8:42 AM EDT [facility] Glucose Lvl 107(H) 70 - 99 mg/dL 01/27/2025 8:42 AM EDT [facility] BUN 13 8 - 23 mg/dL 01/27/2025 8:42 AM EDT [facility] Creatinine 0.58 0.51 - 1.30 mg/dL 01/27/2025 8:42 AM EDT [facility] eGFR (CKD-EPIcr 2020) 88 >=60 mL/min/1.7 3 m2 01/27/2025 8:42 AM EDT [facility] Comment:Estimated GFR was ca lculated using the CKD-EPIcr (2020) equation refit without race. The equation is recommended by the National Kidney [employer] - [place] [employer] Nephrology Task Force. Blood VENOUS BLOOD / Unknown Venipuncture / Unknown 01/27/2025 8:11 AM EDT 01/27/2025 8:14 AM EDT us Kan Longoria MD CHEMISTRY ORDERABLES Final Re sult Performing Organization Address City/[facility]/ZIP Co de Phone Number [facility] [address] [facility], [address] [place] [phone] * (ABNORMAL) GLUCOSE METER POC (01/27/2025 8:07 AM EDT) Glucose Meter POC 102(H) 70 - 100 mg/dL 01/27/2025 8:09 AM EDT [facility] Sample Type Capillary 01/27/2025 8:09 AM EDT [facility] Patient Status Non-Critical Patient 01/27/2025 8:09 AM EDT [facility] Blood BLOOD SPECIMEN / Unknown 01/27/2025 8:07 AM EDT 01/27/2025 8:09 AM EDT us Kavitha Gregorio MD POINT OF CARE TEST ORDERABLES F inal Result Performing Organization Address [facility] Co de Phone Number [facility] [address] [place] [phone] * ECG AND WAVEFORMS - TELEMETRY (01/27/2025 7:18 AM EDT) [facility] Signature ECG INTERPRET Atrial Fib [facility] 01/27/2025 7:18 AM EDT Narrative [facility] - 01/27/2025 7:20 AM EDT ROUTINE/ALLIANCE DIRECTOR QRS 0.10 See Clinical Report link for waveform capture us Unknown Provider POINT OF CARE CARDIOLOGY Final Result Performing Organization Address [facility] Co de Phone Number [facility] [address] [place] [address] * EK EKG 12 LEAD (01/27/2025 5:04 AM EDT) Anatomical Region Laterality Modality Electrocardiogra phy 01/27/2025 5:09 AM EDT Impressions 01/27/2025 6:[address] [facility] Test Date: 2025-01-27 Pat Name: PENNY CHANG Department: DEPID Room: 2105 Gender: Female Fisher Gill Net: [facility] : 1940 Requested By: KAVITHA Mukherjee Order Number: [id number] Reading MD: Alex Schmidt Measurements Intervals [place] Rate: 61 P: 0 MI: 0 QRS: 15 QRSD: 91 T: 48 QT: 395 QTc: 398 Interpretive Statements ATRIAL FIBRILLATION ABNORMAL RHYTHM ECG Electronically Signed On 01-27-2025 06:32:42 EDT by Alex Schmidt Narrative Procedure Note Alex Schmidt MD - 01/27/[address] [facility] Test Date: 2025-01-27 Pat Name: PENNY CHANG Department: DEPID Room: 210 Gender: Female Fisher Gill Net: [facility] : 1940 Requested By: KAVITHA Mukherjee Order Number: [id number] Reading MD: Alex Schmidt Measurements Intervals [place] Rate: 61 P: 0 MI: 0 QRS: 15 QRSD: 91 T: 48 QT: 395 QTc: 398 Interpretive Statements ATRIAL FIBRILLATION ABNORMAL RHYTHM ECG Electronically Signed On 01-27-2025 06:32:42 EDT by Alex Schmidt us Kavitha Gregorio MD IMG ECG ORDERABLES Final Result * ECG AND WAVEFORMS - TELEMETRY (01/27/2025 4:55 AM EDT) ECG INTERPRET Atrial Fib [facility] 01/27/2025 4:55 AM EDT Narrative [facility] - 01/27/2025 4:57 AM EDT re-labeled to Atrial Fib See Clinical Report link for waveform capture us Unknown Provider POINT OF CARE CARDIOLOGY Final Result [facility] [address] [place] [address] * ECG AND WAVEFORMS - TELEMETRY (01/26/2025 11:59 PM EDT) ECG INTERPRET Atrial Fib [facility] 01/26/2025 11:5 9 PM EDT Narrative [facility] - 01/26/2025 11:59 PM EDT See Clinical Report link for waveform capture us Unknown Provider POINT OF CARE CARDIOLOGY Final Result Performing Organization Address [facility] de Phone Number [facility] [address] [place] [address] * (ABNORMAL) GLUCOSE METER POC (01/26/2025 8:28 PM EDT) Glucose Meter POC 134(H) 70 - 100 mg/dL 01/26/2025 8:30 PM EDT [facility] Sample Type Capillary 01/26/2025 8:30 PM EDT [facility] Patient Status Non-Critical Patient 01/26/2025 8:30 PM EDT [facility] Blood BLOOD SPECIMEN / Unknown 01/26/2025 8:28 PM EDT 01/26/2025 8:30 PM EDT us Kavitha Gregorio MD POINT OF CARE TEST ORDERABLES F inal Result Performing Organization Address [facility] de Phone Number [facility] [address] [place] [address] * ECG AND WAVEFORMS - TELEMETRY (01/26/2025 7:04 PM EDT) ECG INTERPRET Atrial Fib [facility] 01/26/2025 7:04 PM EDT Narrative [facility] - 01/26/2025 7:22 PM EDT ROUTINE (HM) QRS 0.10 See Clinical Report link for waveform capture us Unknown Provider POINT OF CARE CARDIOLOGY Final Result [facility] [address] [place] [address] * (ABNORMAL) GLUCOSE METER POC (01/26/2025 4:36 PM EDT) [facility] Glucose Meter POC 104(H) 70 - 100 mg/dL 01/26/2025 4:37 PM EDT [facility] Sample Type Capillary 01/26/2025 4:37 PM EDT [facility] Patient Status Non-Critical Patient 01/26/2025 4:37 PM EDT [facility] Blood BLOOD SPECIMEN / Unknown 01/26/2025 4:36 PM EDT 01/26/2025 4:37 PM EDT Kavitha Gregorio MD POINT OF CARE TEST ORDERABLES F inal Result [facility] [address] [place] [id number] * NM MYOCARDIAL PERFUSION SPECT STRESS AND REST (01/26/2025 2:35 PM EDT) Anatomical Region Laterality Modality Nuclear Medicine 01/26/2025 1:43 PM EDT Impressions 01/26/2025 3:26 PM EDT Conclusions * No evidence of myocardial ischemia or infarction. * Normal left ventricular size and normal left ventricular systolic function. Narrative Procedure Note America Michaels MD - 01/26/2025 IMPRESSION Conclusions * No evidence of myocardial ischemia or infarction. * Normal left ventricular size and normal left ventricular systolic function. us Nani Flores CARPENTER SUPERVISOR IMG NM CARDIAC ORDERABLES F inal Result * ST STRESS TEST LEXISCAN (01/26/2025 2:28 PM EDT) Anatomical Region Laterality Modality Cardiac Stress T esting 01/26/2025 2:08 PM EDT Impressions 01/26/2025 3:[address] [facility] Test Date: 2025-01-26 Pat Name: PENYN CHANG Department: DEPID Room: 210 Gender: Female Fisher Gill Net: KAYCE Gibbons RN : 1940 Requested By: NANI FLORES Order Number: [id number] Reading MD: America Michaels Interpretive Statements Stress Test Lexiscan Ordering Diagnosis: Chest pain Resting HR: 70 Peak HR: 94 Resting B/P: 94/66 Peak B/P: 106/68 1. Lexiscan 0.4 mg was given IV push at 30 seconds into protocol. 2. Lexiscan injection was done without low level exercise. 3. Was the test changed from Exercise to Lexiscan? no_x__yes___ 4. Termination of test due to protocol completion. 5. Symptoms: None 6. No Aminophylline given. 7. Nuclear Imaging reported separately. Physician Interpretation Resting ECG: Atrial fibrillation, rate controlled Arrhythmias: baseline afib Conclusion: No significant ST changes during vasodilator infusion Electronically Signed On 01-26-2025 15:12:17 EDT by America Michaels Narrative Procedure Note America Michaels MD - 01/26/[address] Test Date: 2025-01-26 Pat Name: PENNY CHANG Department: DEPID Room: 2105 Gender: Female Fisher Gill Net: KAY[facility] Gibbons RN : 1940 Requested By: NANI FLORES Order Number: [id number] Reading MD: America Michaels Interpretive Statements Stress Test Lexiscan Ordering Diagnosis: Chest pain Resting HR: 70 Peak HR: 94 Resting B/P: 94/66 Peak B/P: 106/68 1. Lexiscan 0.4 mg was given IV push at 30 seconds into protocol. 2. Lexiscan injection was done without low level exercise. 3. Was the test changed from Exercise to Lexiscan? no_x__yes___ 4. Termination of test due to protocol completion. 5. Symptoms: None 6. No Aminophylline given. 7. Nuclear Imaging reported separately. PhysicianInterpretation Resting ECG: Atrial fibrillation, rate controlled Arrhythmias: baseline afib Conclusion: No significant ST changes during vasodilator infusion Electronically Signed On 01-26-2025 15:12:17 EDT by America Michaels us Nani Flores CARPENTER SUPERVISOR IMG STRESS ORDERABLES Final Result * GLUCOSE METER POC (01/26/2025 11:28 AM EDT) Glucose Meter POC 96 70 - 100 mg/dL 01/26/2025 11:30 AM EDT [facility] Sample Type Capillary 01/26/2025 11:30 AM EDT [facility] Patient Status Non-Critical Patient 01/26/2025 11:30 AM EDT [facility] Blood BLOOD SPECIMEN / Unknown 01/26/2025 11:28 AM EDT 01/26/2025 11:30 AM EDT us Kavitha Gregorio MD POINT OF CARE TEST ORDERABLES F inal Result Performing Organization Address City/[facility]/ZIP Co de Phone Number [facility] [address] [place] [address] * MAGNESIUM LEVEL (01/26/2025 10:29 AM EDT) Magnesium 1.7 1.6 - 2.4 mg/dL 01/26/2025 10:53 AM EDT [facility] Blood VENOUS BLOOD / Unknown Venipuncture / Unknown 01/26/2025 10:29 AM EDT 01/26/2025 10:34 AM EDT us Kan Longoria MD CHEMISTRY ORDERABLES Final Re sult [facility] [address] [place], [place] [phone] * (ABNORMAL) BASIC METABOLIC PANEL (01/26/2025 10:29 AM EDT) Sodium 140 136 - 145 mmol/L 01/26/2025 10:53 AM EDT [facility] Potassium 3.9 3.5 - 5.0 mmol/L 01/26/2025 10:53 AM EDT [facility] Chloride 105 98 - 107 mmol/L 01/26/2025 10:53 AM EDT [facility] Total CO2 24 22 - 29 mmol/L 01/26/2025 10:53 AM EDT [facility] Anion Gap 11 7 - 16 mmol/L 01/26/2025 10:53 AM EDT [facility] Calcium 9.4 8.8 - 10.4 mg/dL 01/26/2025 10:53 AM EDT [facility] Glucose Lvl 106(H) 70 - 99 mg/dL 01/26/2025 10:53 AM EDT [facility] BUN 12 8 - 23 mg/dL 01/26/2025 10:53 AM EDT [facility] Creatinine 0.58 0.51 - 1.30 mg/dL 01/26/2025 10:53 AM EDT [facility] eGFR (CKD-EPIcr 2020) 88 >=60 mL/min/1.7 3 m2 01/26/2025 10:53 AM EDT [facility] Comment:Estimated GFR was ca lculated using the CKD-EPIcr (2020) equation refit without race. The equation is recommended by the National Kidney Foundation - [place] [employer] of Nephrology Task Force. Blood VENOUS BLOOD / Unknown Venipuncture / Unknown 01/26/2025 10:29 AM EDT 01/26/2025 10:34 AM EDT us Kan Longoria MD CHEMISTRY ORDERABLES Final Re sult [facility] [address] [place] [address] * GLUCOSE METER POC (01/26/2025 7:32 AM EDT) Glucose Meter POC 94 70 - 100 mg/dL 01/26/2025 7:33 AM EDT [facility] Sample Type Capillary 01/26/2025 7:33 AM EDT [facility] Patient Status Non-Critical Patient 01/26/2025 7:33 AM EDT [facility] Blood BLOOD SPECIMEN / Unknown 01/26/2025 7:32 AM EDT 01/26/2025 7:33 AM EDT us Kavitha Gregorio MD POINT OF CARE TEST ORDERABLES F inal Result [facility] [address] [place] [id number] * ECG AND WAVEFORMS - TELEMETRY (01/26/2025 7:05 AM EDT) [facility] Signature ECG INTERPRET Atrial Fib [facility] 01/26/2025 7:05 AM EDT Narrative [facility] - 01/26/2025 7:11 AM EDT KW ROUTINE QRS 0.10 See Clinical Report link for waveform capture us Unknown Provider POINT OF CARE CARDIOLOGY Final Result [facility] [address] [place] [id number] * (ABNORMAL) GLUCOSE METER POC (01/25/2025 8:37 PM EDT) Glucose Meter POC 110(H) 70 - 100 mg/dL 01/25/2025 8:39 PM EDT [facility] Sample Type Capillary 01/25/2025 8:39 PM EDT [facility] Patient Status Non-Critical Patient 01/25/2025 8:39 PM EDT [facility] Blood BLOOD SPECIMEN / Unknown 01/25/2025 8:37 PM EDT 01/25/2025 8:39 PM EDT us Kavitha Gregorio MD POINT OF CARE TEST ORDERABLES F inal Result Performing Organization Address [facility]/ZIP Co de Phone Number [facility] [address] [place] [address] * ECG AND WAVEFORMS - TELEMETRY (01/25/2025 7:02 PM EDT) ECG INTERPRET Atrial Fib [facility] 01/25/2025 7:02 PM EDT Narrative [facility] - 01/25/2025 7:09 PM EDT NEW ADMIT (MS) QRS 0.09 See Clinical Report link for waveform capture us Unknown Provider POINT OF CARE CARDIOLOGY Final Result Performing Organization Address [facility] de Phone Number [facility] [address] [place] [phone] * (ABNORMAL) TROPONIN-T HIGH SENSITIVITY 2HR (01/25/2025 4:38 PM EDT) Pathologist [facility] qs-lVofgcizp-X 2HR 16(H) <14 ng/L 01/25/2025 4:59 PM EDT [facility] hs-cTnT 2Hr Delta from Baseline -1 <4 ng/L 01/25/2025 4:59 PM EDT [facility] Blood VENOUS BLOOD / Unknown Venipuncture / Unknown 01/25/2025 4:38 PM EDT 01/25/2025 4:39 PM EDT Narrative [facility] - 01/25/2025 4:59 PM EDT Ingestion of joshua doses of biotin (>5 mg/day) taken within 8 hours of drawing blood sample can interfere with this immunoassay test. us Jose Calabrese MD CHEMISTRY ORDERABLES Final Resu lt Performing Organization Address [facility] Co de Phone Number [facility] [address] [place] [address] * CT ANGIOGRAM CHEST ABDOMEN PELVIS W CONTRAST (01/25/2025 3:53 PM EDT) Anatomical Region Laterality Modality Abdomen, Pelvis, Chest Computed Tomography 01/25/2025 3:53 PM EDT Impressions 01/25/2025 4:12 PM EDT 1. No aortic dissection or other acute aortic pathology. 2. No acute abnormality in the chest, abdomen, or pelvis. 3. Ancillary findings are described above. - Note: Radiology results need to be interpreted within a comprehensive clinical context. If you have questions about the radiology report, please contact the office of the ordering clinician. Narrative 01/25/2025 4:[address] ANGIOGRAM CHEST ABDOMEN PELVIS W CONTRAST 01/25/2025 3:53 PM CLINICAL HISTORY: -Chest pain and left flank pain. COMPARISON: CT chest, abdomen, and pelvis dated 11/23/2019 PROCEDURE COMMENTS: Multidetector CT angiography of the region of interest. Isovue 370 IV contrast given as recorded in EPIC. Multiplanar reconstructions generated and reviewed, including 3D MIPS. Dose 1 : CT DLP Total : 794 mGycm DLP Spiral Max : 572.81 mGycm Maximum CTDI Vol : 9.28 mGy FINDINGS: Vascular Findings No CT evidence of acute aortic pathology. Specifically, no intramural hematoma, dissection flap or pseudoaneurysm. The thoracic aorta is normal in caliber. The visualized portions of the brachiocephalic, subclavian and upper extremity vasculature are patent. No central occlusive pulmonary embolism. Mild enlargement of the main pulmonary artery, suggestive of pulmonary artery hypertension. No acute aortic abnormality involving the abdominal aorta or branches. No aneurysm. Conventional celiac axis anatomy. The celiac artery and major branches, superior mesenteric artery, and inferior mesenteric artery are patent with mild nonflow limiting atherosclerotic disease. Single bilateral renal arteries are patent, with mild nonflow limiting ostial plaque of the left renal artery and minimal on the right. Nonvascular Chest Findings No acute or suspicious abnormalities included soft tissues lower neck. Patent central airways. Minimal bibasilar atelectasis and additional scarring/fibrotic changes in the medial left lung base adjacent to thoracic osteophytes. Punctate calcified granulomas. No focal consolidation. No layering pleural effusion. No pneumothorax. No acute osseous abnormalities. Nonvascular Abdomen/Pelvic Findings The liver, spleen, adrenal glands, atrophic pancreas, and kidneys are unremarkable. Normal gallbladder and biliary tree. No hydronephrosis. Normal urinary bladder. No bowel obstruction. No focal bowel wall thickening. Sigmoid predominant diverticulosis without CT evidence of acute diverticulitis. No mesenteric or retroperitoneal lymphadenopathy. No acute osseous findings. Extensive degenerative changes throughout the thoracolumbar spine. Multiple thoracic hemangiomas. Procedure Note Adam Hamilton MD - 01/25/2025 CT ANGIOGRAM CHEST ABDOMEN PELVIS W CONTRAST 01/25/2025 3:53 PM CLINICAL HISTORY: -Chest pain and left flank pain. COMPARISON: CT chest, abdomen, and pelvis dated 11/23/2019 PROCEDURE COMMENTS: Multidetector CT angiography of the region ofinterest. Isovue 370 IV contrast given as recorded in EPIC. Multiplanarreconstructions generated and reviewed, including 3D MIPS. Dose 1 : CT DLP Total : 794 mGycm DLP Spiral Max : 572.81 mGycm Maximum CTDI Vol : 9.28 mGy FINDINGS: Vascular Findings No CT evidence of acute aortic pathology. Specifically, no intramuralhematoma, dissection flap or pseudoaneurysm. The thoracic aorta is normal incaliber. The visualized portions of the brachiocephalic, subclavian and upperextremity vasculature are patent. No central occlusive pulmonary embolism. Mild enlargement of the main pulmonary artery, suggestive of pulmonary artery hypertension. No acute aortic abnormality involving the abdominal aorta or branches.No aneurysm. Conventional celiac axis anatomy. The celiac artery and major branches, superior mesenteric artery, and inferior mesenteric artery arepatent with mild nonflow limiting atherosclerotic disease. Single bilateralrenal arteries are patent, with mild nonflow limiting ostial plaque of the leftrenal artery and minimal on the right. Nonvascular Chest Findings No acute or suspicious abnormalities included soft tissues lower neck. Patent central airways. Minimal bibasilar atelectasis and additional scarring/fibrotic changes in the medial left lung base adjacent tothoracic osteophytes. Punctate calcified granulomas. No focal consolidation. Nolayering pleural effusion. No pneumothorax. No acute osseous abnormalities. Nonvascular Abdomen/Pelvic Findings The liver, spleen, adrenal glands, atrophic pancreas, and kidneys are unremarkable. Normal gallbladder and biliary tree. No hydronephrosis.Normal urinary bladder. No bowel obstruction. No focal bowel wall thickening. Sigmoidpredominant diverticulosis without CT evidence of acute diverticulitis. No mesenteric or retroperitoneal lymphadenopathy. No acute osseousfindings. Extensive degenerative changes throughout the thoracolumbar spine.Multiple thoracic hemangiomas. IMPRESSION: 1. No aortic dissection or other acute aortic pathology. 2. No acute abnormality in the chest, abdomen, or pelvis. 3. Ancillary findings are described above. - Note: Radiology results need to be interpreted within a comprehensiveclinical context. If you have questions about the radiology report, please contactthe office of the ordering clinician. us Jose Calabrese MD [facility] ORDERABLES Final Result * XR CHEST AP PORTABLE (01/25/2025 3:23 PM EDT) Anatomical Region Laterality Modality Chest Radiographic Louise ging 01/25/2025 3:23 PM EDT Impressions 01/25/2025 3:25 PM EDT Faint left basilar opacity, pneumonia versus atelectasis. Small left effusion suspected. - Note: Radiology results need to be interpreted within a comprehensive clinical context. If you have questions about the radiology report, please contact the office of the ordering clinician. Narrative 01/25/2025 3:25 PM EDT XR CHEST AP PORTABLE, 01/25/2025 3:23 PM CLINICAL HISTORY: -cp COMPARISON: 07/08/2020 PROCEDURE COMMENTS: AP portable technique. FINDINGS: Support devices: No visible support devices. Heart size normal. There is a faint left basilar opacity, pneumonia versus atelectasis. Small left effusion suspected. Right lung is clear. No pneumothorax. Procedure Note Kevin Daugherty MD - 01/25/2025 XR CHEST AP PORTABLE, 01/25/2025 3:23 PM CLINICAL HISTORY: -cp COMPARISON: 07/08/2020 PROCEDURE COMMENTS: AP portable technique. FINDINGS: Support devices: No visible support devices. Heart size normal. There is a faint left basilar opacity, pneumoniaversus atelectasis. Small left effusion suspected. Right lung is clear. No pneumothorax. IMPRESSION: Faint left basilar opacity, pneumonia versus atelectasis. Small lefteffusion suspected. - Note: Radiology results need to be interpreted within a comprehensiveclinical context. If you have questions about the radiology report, please contactthe office of the ordering clinician. us Jose Calabrese MD [facility] ORDERABL ES Final Result * (ABNORMAL) TROPONIN-T HIGH SENSITIVITY BASELINE W/ REFLEX (01/25/2025 2:57 PM EDT) [facility] [id number] 17(H) <14 ng/L 01/25/2025 3:21 PM EDT [facility] Blood VENOUS BLOOD / Unknown Venipuncture / Unknown 01/25/2025 2:57 PM EDT 01/25/2025 3:01 PM EDT Narrative [facility] - 01/25/2025 3:21 PM EDT Ingestion of joshua doses of biotin (>5 mg/day) taken within 8 hours of drawing blood sample can interfere with this immunoassay test. us Jose Calabrese MD CHEMISTRY ORDERABLES Final Resu lt [facility] [address] [place] [address] * (ABNORMAL) BASIC METABOLIC PANEL (01/25/2025 2:57 PM EDT) [facility] Sodium 140 136 - 145 mmol/L 01/25/2025 3:21 PM EDT [facility] Potassium 3.1(L) 3.5 - 5.0 mmol/L 01/25/2025 3:21 PM EDT [facility] Chloride 102 98 - 107 mmol/L 01/25/2025 3:21 PM EDT [facility] Total CO2 21(L) 22 - 29 mmol/L 01/25/2025 3:21 PM EDT [facility] Anion Gap 17(H) 7 - 16 mmol/L 01/25/2025 3:21 PM EDT [facility] Calcium 9.6 8.8 - 10.4 mg/dL 01/25/2025 3:21 PM EDT [facility] Glucose Lvl 125(H) 70 - 99 mg/dL 01/25/2025 3:21 PM EDT [facility] BUN 12 8 - 23 mg/dL 01/25/2025 3:21 PM EDT [facility] Creatinine 0.66 0.51 - 1.30 mg/dL 01/25/2025 3:21 PM EDT [facility] eGFR (CKD-EPIcr 2020) 85 >=60 mL/min/1.7 3 m2 01/25/2025 3:21 PM EDT [facility] Comment:Estimated GFR was ca lculated using the CKD-EPIcr (2020) equation refit without race. The equation is recommended by the [employer] - [place] [employer]ph[employer] Task Force. Blood VENOUS BLOOD / Unknown Venipuncture / Unknown 01/25/2025 2:57 PM EDT 01/25/2025 3:01 PM EDT us Jose Calabrese MD CHEMISTRY ORDERABLES Final Resu lt [facility] [address] [place] [id number] * (ABNORMAL) CBC (01/25/2025 2:57 PM EDT) WBC 5.0 3.7 - 10.3 x10(3)/mcL 01/25/2025 3:04 PM EDT [facility] RBC 3.77(L) 3.90 - 5.20 x10(6)/mcL 01/25/2025 3:04 PM EDT [facility] Hgb 11.8 11.2 - 15.7 g/dL 01/25/2025 3:04 PM EDT [facility] Hct 36.0 34.0 - 45.0 % 01/25/2025 3:04 PM EDT [facility] MCV 95.5 80.0 - 100.0 fL 01/25/2025 3:04 PM EDT [facility] MCH 31.3 26.0 - 34.0 pg 01/25/2025 3:04 PM EDT [facility] MCHC 32.8 30.7 - 35.5 g/dL 01/25/2025 3:04 PM EDT [facility] RDW 14.6 <=14.9 % 01/25/2025 3:04 PM EDT [facility] Platelet 253 155 - 369 x10(3)/mcL 01/25/2025 3:04 PM EDT [facility] MPV 9.4 8.8 - 12.5 fL 01/25/2025 3:04 PM EDT [facility] Blood VENOUS BLOOD / Unknown Venipuncture / Unknown 01/25/2025 2:57 PM EDT 01/25/2025 3:01 PM EDT us Jose Calabrese MD HEMATOLOGY ORDERABLES Final Res ult [facility] [address] [place] [address] * EK EKG 12 LEAD (01/25/2025 2:20 PM EDT) Anatomical Region Laterality Modality Electrocardiogra phy 01/25/2025 2:27 PM EDT Impressions 01/25/2025 6:[address] [facility] Test Date: 2025-01-25 Pat Name: PENNY CHANG Department: DEPID Room: Gender: Female Fisher Gill Net: Jose : 1940 Requested By: [facility] Order Number: [id number] Reading MD: Michael Quinteros Measurements Intervals [place] Rate: 75 P: 0 MI: 0 QRS: -1 QRSD: 95 T: 36 QT: 378 QTc: 423 Interpretive Statements ATRIAL FIBRILLATION WITH ABERRANT CONDUCTION OR VENTRICULAR PREMATURE COMPLEXES LOW QRS VOLTAGE IN PRECORDIAL LEADS PATTERN CONSISTENT WITH PULMONARY DISEASE Electronically Signed On 01-25-2025 18:23:37 EDT by Michael Quinteros Narrative Procedure Note Michael Quinteros MD - 01/25/[address] [facility] Test Date: 2025-01-25 Pat Name: PENNY CHANG Department: DEPID Room: Gender: Female Fisher Gill Net: Jose : 1940 Requested By: [facility] Order Number: [id number] Reading MD: Michael Quinteros Measurements Intervals [place] Rate: 75 P: 0 MI: 0 QRS: -1 QRSD: 95 T: 36 QT: 378 QTc: 423 Interpretive Statements ATRIAL FIBRILLATION WITH ABERRANT CONDUCTION OR VENTRICULAR PREMATURE COMPLEXES LOW QRS VOLTAGE IN PRECORDIAL LEADS PATTERN CONSISTENT WITH PULMONARY DISEASE Electronically Signed On 01-25-2025 18:23:37 EDT by Michael Quinteros Jose Calabrese MD IMG ECG ORDERABLES Final Result documented in this encounter Visit Diagnoses Diagnosis Acute chest pain- Primary Chest pain, unspecified Acute chest pain Chest pain, unspecified Lightheadedness Dizziness and giddiness Paroxysmal A-fib (HCC) Atrial fibrillation 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) Essential hypertension Unspecified essential hypertension Coronary artery disease 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 Mixed hyperlipidemia Acute left-sided low back pain without sciatica Permanent atrial fibrillation (HCC) Atrial fibrillation Hypokalemia Hypopotassemia documented in this encounter Admitting Diagnoses Diagnosis Acute chest pain Chest pain, unspecified documented in this encounter Administered Medications Inactive Administered Medications - up to 1 most recent administrations Medication Order MAR Action Action Date Dose Rate Site acetaminophen (TYLENOL) tablet 650 mg 650 mg, Oral, EVERY 4 HOURS PRN, Starting on Sat01/25/25 at 2009, Until Sat01/27/25 at 2123, Pain, Headaches, Maximum adult dose of acetaminophen is 4000 mg from all sources in 24 hours. Given 01/27/2025 1:59 PM EDT 650 mg amLODIPine (NORVASC) tablet 2.5 mg 2.5 mg, Oral, DAILY, First dose on Sat01/26/25 at 0900, Until Discontinued Given During Downtime 01/27/2025 9:43 AM EDT 2.5 mg amoxicillin-clavulanate (AUGMENTIN) 875-125 mg per tablet 1 Tablet 1 Tablet, Oral, 2 TIMES DAILY, 16 doses, First dose on Sat01/26/25 at 1000, Last dose on Sat02/02/25 at 2100, Reason for Therapy: Infection Documented, Indication: Upper Respiratory Given During Downtime 01/27/2025 9:42 AM EDT 1 Tablet apixaban (ELIQUIS) tablet 5 mg 5 mg, Oral, 2 TIMES DAILY, First dose on Sat01/25/25 at 2115, Until Discontinued Given During Downtime 01/27/2025 9:42 AM EDT 5 mg aspirin chewable tablet 81 mg 81 mg, Oral, DAILY, First dose on Sat01/26/25 at 0900, Until Discontinued Given During Downtime 01/27/2025 9:42 AM EDT 81 mg atorvastatin (LIPITOR) tablet 10 mg 10 mg, Oral, EVERY OTHER NIGHT, First dose on Sat01/25/25 at 2100, Until Discontinued, Therapeutic interchange for simvastatin (Zocor) 10mg daily Given 01/25/2025 8:42 PM EDT 10 mg dextrose 50 % solution 25 mL 25 mL, Intravenous, PRN, Starting on Sat01/25/25 at 1944, Until Sat01/27/25 at 2123, Low blood sugar, If FSBS less than 70 mg/dl and patient cannot take orally, Check FSBS every 15 minutes and repeat 25 mL of D50 IV push and notify physician if FSBS less than 70 mg/dL VESICANT , Insulin Calculator famotidine (PEPCID) tablet 20 mg 20 mg, Oral, DAILY, First dose on Sat01/26/25 at 0900, Until Discontinued Given During Downtime 01/27/2025 9:43 AM EDT 20 mg fUROsemide (LASix) tablet 20 mg 20 mg, Oral, DAILY, First dose on Sat01/26/25 at 1000, Until Discontinued Given During Downtime 01/27/2025 9:43 AM EDT 20 mg glucagon (GLUCAGEN) injection 1 mg 1 mg, Intramuscular, PRN, Starting on Sat01/25/25 at 1944, Until Sat01/27/25 at 2123, Low blood sugar, If FSBS less than 70 mg/dl, patient cannot take orally and without IV access, If patient is without IV access, give Glucagon 1 mg Intramuscularly, insert IV and call physician., Insulin Calculator GLUCERNA Therapeutic oral supplement 1 'box' 1 'box', Oral, EVERY MORNING (NUTR), First dose on Sat01/27/25 at 0900, Until Discontinued, Chocolate Administer orally. Do not administer if NPO or on clear liquid diet. Not for IV use. Supplied by [facility] Given 01/27/2025 9:00 AM EDT 1 'box' HYDROcodone-acetaminophen (NORCO) 5-325 mg per tablet 1 Tablet 1 Tablet, Oral, EVERY 6 HOURS PRN, Starting on Sat01/27/25 at 0733, Until Sat01/27/25 at 2123, Pain Unrelieved by Oral Non-Opioid Therapy, Maximum adult dose of acetaminophen is 4000 mg from all sources in 24 hours. insulin aspart U-100 (NovoLOG) injection 0-40 Units 0-40 Units, Subcutaneous, 4 TIMES DAILY AT MEALTIME AND BEDTIME, First dose on Sat01/25/25 at 2115, Until Discontinued, PO Diet: Obtain FSBS before patient begins eating. Administer this dose, which only provides correctional insulin, immediately after FSBS. If patient is NPO or declines meal tray, continue with calculated correction insulin dose. Tube Feeds and TPN: Obtain FSBS and administer this dose, which only provides correctional insulin, immediately after FSBS. Notify physician if FSBS less than 50 or greater than 350. Correction insulin doses must be by at least 3 hours. Waste Sort Code = BLACK RCRA Hazardous Waste Container, Blood Glucose Target - Daytime (mg/dL): 140, Blood Glucose Target - Nighttime (mg/dL): 180, Hyperglycemia Correction Factor: 50, Insulin Calculator Insulin Calculator - FSBS (Correction Only) Input MISCELLANEOUS, 4 TIMES DAILY AT MEALTIME AND BEDTIME, First dose on Sat01/25/25 at 2115, Until Discontinued, Blood Glucose Target - Daytime (mg/dL): 140, Blood Glucose Target - Nighttime (mg/dL): 180, Hyperglycemia Correction Factor: 50, Insulin Calculator iopamidoL (ISOVUE-370) 370 mg iodine /mL (76 %) injection (LOW) 75 mL 75 mL, Intravenous, ONCE PRN, 1 dose, Starting on Sat01/25/25 at 1527, Until Sat01/25/25 at 1548, Radiography/Imaging, Radiology Procedure, VESICANT , CT (Contrasts) Given 01/25/2025 3:48 PM EDT 75 mL lisinopriL (PRINIVIL;ZESTril) tablet 10 mg 10 mg, Oral, 2 TIMES DAILY, First dose on Sat01/25/25 at 2115, Until Discontinued, +++ACEI Medication+++ Given During Downtime 01/27/2025 9:43 AM EDT 10 mg loperamide (IMODIUM) capsule 2 mg 2 mg, Oral, 4 TIMES DAILY PRN, Starting on Sat01/27/25 at 0924, Until Sat01/27/25 at 2123, Diarrhea, After each loose stool - Max 16 mg (8 caps) per 24 hours. If administering via enteral tube, empty contents of the capsules into 30 ml of water. Given During Downtime 01/27/2025 9:42 AM EDT 2 mg magnesium oxide (MAG-OX) tablet 400 mg 400 mg, Oral, ONCE, 1 dose, On Sat01/27/25 at 0900 Given During Downtime 01/27/2025 9:43 AM EDT 400 mg morphine injection 1-2 mg 1-2 mg, Intravenous, EVERY 4 HOURS PRN, 2 doses, Starting on Sat01/26/25 at 0939, Until Sat01/27/25 at 0733, Pain Unrelieved by Oral Opioid Therapy, Breakthrough Pain, Pain Given 01/26/2025 10:12 AM EDT 2 mg morphine injection 1-2 mg 1-2 mg, Intravenous, ONCE PRN, 1 dose, Starting on Sat01/27/25 at 0736, Until Sat01/27/25 at 1936, Pain Unrelieved by Oral Opioid Therapy, Breakthrough Pain, Pain morphine injection 4 mg 4 mg, Intravenous, ONCE, 1 dose, On Sat01/25/25 at 1500 Given 01/25/2025 3:01 PM EDT 4 mg morphine injection 4 mg 4 mg, Intravenous, ONCE, 1 dose, On Sat01/25/25 at 1645 Given 01/25/2025 4:52 PM EDT 4 mg ondansetron (ZOFRAN) injection 4 mg 4 mg, Intravenous, ONCE, 1 dose, On Sat01/25/25 at 1500 Given 01/25/2025 3:01 PM EDT 4 mg oxyCODONE (ROXICODONE) immediate release tablet 10 mg 10 mg, Oral, ONCE, 1 dose, On Sat01/25/25 at 2345 Given 01/26/2025 12:33 AM EDT 10 mg potassium chloride (KLOR-CON) tablet 40 mEq 40 mEq, Oral, ONCE, 1 dose, On Sat01/25/25 at 1530 Given 01/25/2025 4:51 PM EDT 40 mEq potassium chloride (KLOR-CON) tablet 40 mEq 40 mEq, Oral, ONCE, 1 dose, On Sat01/26/25 at 1130 Given 01/26/2025 10:11 AM EDT 40 mEq regadenoson (LEXISCAN) injection 0.4 mg 0.4 mg, Intravenous, ONCE, 1 dose, On Sat01/26/25 at 1600, Stress Meds Given 01/26/2025 2:16 PM EDT 0.4 mg sertraline (ZOLOFT) tablet 50 mg 50 mg, Oral, DAILY, First dose on Sat01/26/25 at 0900, Until Discontinued Given During Downtime 01/27/2025 9:42 AM EDT 50 mg sodium chloride 0.9% IV line flush 50 mL 50 mL, Intravenous, at 150-600 mL/hr, PRN, Starting on Sat01/25/25 at 1419, Until Sat01/27/25 at 2123, Line Care, Flush with a minimum of 20 mL after IVPB to insure complete administration of the dose. May use the saline infusion to back flush IVPB tubing as needed., Use this order to document priming and flushing IV line after medication administration. sodium chloride 0.9% syringe 10 mL 10 mL, Intravenous, ONCE PRN, 1 dose, Starting on Sat01/25/25 at 1527, Until Sat01/25/25 at 1548, Line Care, Flush peripheral lines every 12 hours, central lines every 8 hours, and after IV medication, CT (Contrasts) Given 01/25/2025 3:48 PM EDT 10 mL sodium chloride 0.9% syringe 5 mL 5 mL, Intravenous, PRN, Starting on Sat01/25/25 at 1419, Until Sat01/27/25 at 2123, Line Care, Flush with 5 mL saline pre/post IVP, and 5 mL prior to IVPB or blood product administration. Protocol for PERIPHERAL IV saline lock maintenance, flush with 3-5 mL saline syringe every 8 hours., Flush peripheral lines every 12 hours, central lines every 8 hours, and after IV medication sodium chloride 0.9% syringe Intravenous, PRN, Starting on Sat01/26/25 at 1429, Until Sat01/26/25 at 1430, Line Care, Flush with 5-10 mL saline pre/post IVP, and 5 mL prior to IVPB or blood product administration., Stress Meds Given 01/26/2025 2:16 PM EDT 5 mL sterile water injection 1 mL 1 mL, Injection, PRN, Starting on Sat01/25/25 at 1944, Until Sat01/27/25 at 2123, Use for drug dilution, Use to dilute and administer glucagon injection, Insulin Calculator [id number] (MYOVIEW) injection 8-45 millicurie 8-45 millicurie, Intravenous, ONCE PRN, 1 dose, Starting on Sat01/26/25 at 1339, Until Sat01/26/25 at 1419, Radiography/Imaging, Radiology Procedure, Administration dose must be within 10% of the ordered dose for radiopharmaceutical medications., Radiology Given 01/26/2025 2:19 PM EDT 37.7 millicuries [id number] (MYOVIEW) injection 8-45 millicurie 8-45 millicurie, Intravenous, ONCE PRN, 1 dose, Starting on Sat01/26/25 at 1339, Until Sat01/26/25 at 1335, Radiography/Imaging, Radiology Procedure, Administration dose must be within 10% of the ordered dose for radiopharmaceutical medications., Radiology Given 01/26/2025 1:35 PM EDT 11.3 millicuries tiZANidine (ZANAFLEX) tablet 4 mg 4 mg, Oral, EVERY 8 HOURS PRN, Starting on Sat01/26/25 at 0911, Until Sat01/27/25 at 0733, Muscle spasms Given 01/27/2025 4:05 AM EDT 4 mg documented in this encounter Discontinued Medications Medication Sig Discontinue Reason Start Date End Da te isosorbide mononitrate (IMDUR) 30 mg Oral Tablet Sustained Release 24 hr Take 1 Tablet by mouth every morning. DELETE-Therapy completed 09/16/2023 01/25/2025 meclizine (ANTIVERT) 25 mg Oral Tablet 25 mg 3 times daily. DELETE-Therapy completed 04/30/2022 01/25/2025 documented as of this encounter Historical Medications * This list may reflect changes made after this encounter. amoxicillin-clavul anate (AUGMENTIN) 875-125 mg Oral Tablet Take 875 mg by mouth 2 times daily. added in this encounter Active and Recently Administered Medications Times are shown in EDT. Scheduled Medication Order 01/25/2025 01/26/2025 01/27/2025 amLODIPine (NORVASC) tablet 2.5 mg 2.5 mg, Oral, DAILY, First dose on Sat01/26/25 at 0900, Until Discontinued 899 (Given - Provider: Charleen Ugalde RN) 0943 (Given During Downtime - Provider: Venkatesh Pearson RN) amoxicillin-clavulanat e (AUGMENTIN) 875-125 mg per tablet 1 Tablet 1 Tablet, Oral, 2 TIMES DAILY, 16 doses, First dose on Sat01/26/25 at 1000, Last dose on Sat02/02/25 at 2100, Reason for Therapy: Infection Documented, Indication: Upper Respiratory 902 (Given - Provider: Charleen Ugalde RN)2023 (Given - Provider: Shana Cooney RN) 0942 (Given During Downtime - Provider: Venkatesh Pearson RN) apixaban (ELIQUIS) tablet 5 mg 5 mg, Oral, 2 TIMES DAILY, First dose on Sat01/25/25 at 2115, Until Discontinued 2041 (Given - Provider: Shana Cooney RN) 900 (Given - Provider: Charleen Ugalde RN)2024 (Given - Provider: Shana Cooney RN) 0942 (Given During Downtime - Provider: Venkatesh Pearson RN) aspirin chewable tablet 81 mg 81 mg, Oral, DAILY, First dose on Sat01/26/25 at 0900, Until Discontinued 900 (Given - Provider: Charleen Ugalde RN) 0942 (Given During Downtime - Provider: Venkatesh Pearson RN) atorvastatin (LIPITOR) tablet 10 mg 10 mg, Oral, EVERY OTHER NIGHT, First dose on Sat01/25/25 at 2100, Until Discontinued, Therapeutic interchange for simvastatin (Zocor) 10mg daily 2041 (Given - Provider: Shana Cooney RN) famotidine (PEPCID) tablet 20 mg 20 mg, Oral, DAILY, First dose on Sat01/26/25 at 0900, Until Discontinued 899 (Given - Provider: Charleen Ugalde RN) 0943 (Given During Downtime - Provider: Venkatesh Pearson RN) fUROsemide (LASix) tablet 20 mg 20 mg, Oral, DAILY, First dose on Sat01/26/25 at 1000, Until Discontinued 09 (Given - Provider: Charleen Ugalde RN) 0943 (Given During Downtime - Provider: Venkatesh Pearson RN) GLUCERNA Therapeutic oral supplement 1 'box' 1 'box', Oral, EVERY MORNING (NUTR), First dose on Sat01/27/25 at 0900, Until Discontinued, Chocolate Administer orally. Do not administer if NPO or on clear liquid diet. Not for IV use. Supplied by [facility] 09 (Given - Provider: Venkatesh Pearson RN) insulin aspart U-100 (NovoLOG) injection 0-40 Units(Linked Group 1) 0-40 Units, Subcutaneous, 4 TIMES DAILY AT MEALTIME AND BEDTIME, First dose on Sat01/25/25 at 2115, Until Discontinued, PO Diet: Obtain FSBS before patient begins eating. Administer this dose, which only provides correctional insulin, immediately after FSBS. If patient is NPO or declines meal tray, continue with calculated correction insulin dose. Tube Feeds and TPN: Obtain FSBS and administer this dose, which only provides correctional insulin, immediately after FSBS. Notify physician if FSBS less than 50 or greater than 350. Correction insulin doses must be by at least 3 hours. Waste Sort Code = BLACK RCRA Hazardous Waste Container, Blood Glucose Target - Daytime (mg/dL): 140, Blood Glucose Target - Nighttime (mg/dL): 180, Hyperglycemia Correction Factor: 50, Insulin Calculator 2037 (Not Given - Provider: Shana Cooney RN - Reason: Order parameters not met - Comment: 110) 0800 (Not Given - Provider: Charleen Ugalde RN - Reason: NPO)1200 (Hold - Provider: Charleen Ugalde RN - Reason: NPO)1636 (Not Given - Provider: Charleen Ugalde RN - Reason: Order parameters not met)2027 (Not Given - Provider: Shana Cooney RN - Reason: Order parameters not met - Comment: 134) 0800 (Not Given - Provider: Venkatesh Pearson RN - Reason: Order parameters not met)1200 (Not Given - Provider: Venkatesh Pearson RN - Reason: Order parameters not met) Insulin Calculator - FSBS (Correction Only) Input(Linked Group 1) MISCELLANEOUS, 4 TIMES DAILY AT MEALTIME AND BEDTIME, First dose on Sat01/25/25 at 2115, Until Discontinued, Blood Glucose Target - Daytime (mg/dL): 140, Blood Glucose Target - Nighttime (mg/dL): 180, Hyperglycemia Correction Factor: 50, Insulin Calculator 2037 (Non- Med Documentation - Provider: Shana Cooney RN) 0800 (Non- Med Documentation - Provider: Charleen Ugalde, RN)1200 (Non- Med Documentation - Provider: Charleen Ugalde RN)163 (Non- Med Documentation - Provider: Charleen Ugalde RN)2027 (Non- Med Documentation - Provider: Shana Cooney RN) 0800 (Non- Med Documentation - Provider: Venkatesh Pearson RN)1200 (Non- Med Documentation - Provider: Venkatesh Pearson RN) lisinopriL (PRINIVIL;ZESTril) tablet 10 mg 10 mg, Oral, 2 TIMES DAILY, First dose on Sat01/25/25 at 2115, Until Discontinued, +++ACEI Medication+++ 2041 (Given - Provider: Shana Cooney RN) 0901 (Given - Provider: Charleen Ugalde, VALENTIN)2024 (Hold - Provider: Shana Cooney RN - Reason: Patient Declined) 0943 (Given During Downtime - Provider: Venkatesh Pearson RN) magnesium oxide (MAG-OX) tablet 400 mg (COMPLETED) 400 mg, Oral, ONCE, 1 dose, On Sat01/27/25 at 0900 0943 (Given During Downtime - Provider: Venkatesh Pearson RN) morphine injection 4 mg (COMPLETED) 4 mg, Intravenous, ONCE, 1 dose, On Sat01/25/25 at 1500 1501 (Given - Provider: Elizabeth Jimenez, VALENTIN) morphine injection 4 mg (COMPLETED) 4 mg, Intravenous, ONCE, 1 dose, On Sat01/25/25 at 1645 1652 (Given - Provider: Elizabeth Jimenez, VALENTIN) ondansetron (ZOFRAN) injection 4 mg (COMPLETED) 4 mg, Intravenous, ONCE, 1 dose, On Sat01/25/25 at 1500 1501 (Given - Provider: Elizabeth Jimenez, VALENTIN) oxyCODONE (ROXICODONE) immediate release tablet 10 mg (COMPLETED) 10 mg, Oral, ONCE, 1 dose, On Sat01/25/25 at 2345 0033 (Given - Provider: Shana Cooney RN) potassium chloride (KLOR-CON) tablet 40 mEq (COMPLETED) 40 mEq, Oral, ONCE, 1 dose, On Sat01/25/25 at 1530 1651 (Given - Provider: Elizabeth Jimenez RN) potassium chloride (KLOR-CON) tablet 40 mEq (COMPLETED) 40 mEq, Oral, ONCE, 1 dose, On Sat01/26/25 at 1130 1011 (Given - Provider: Charleen Ugalde RN) regadenoson (LEXISCAN) injection 0.4 mg (COMPLETED) 0.4 mg, Intravenous, ONCE, 1 dose, On Sat01/26/25 at 1600, Stress Meds 1416 (Given - Provider: Kayce Singleton RN)1600 (Due) sertraline (ZOLOFT) tablet 50 mg 50 mg, Oral, DAILY, First dose on Sat01/26/25 at 0900, Until Discontinued 0900 (Given - Provider: Charleen Ugalde RN) 0942 (Given During Downtime - Provider: Venkatesh Pearson, VALENTIN) PRN Medication Order 01/25/2025 01/26/2025 01/27/2025 acetaminophen (TYLENOL) tablet 650 mg 650 mg, Oral, EVERY 4 HOURS PRN, Starting on Sat01/25/25 at 2010, Until Sat01/27/25 at 2123, Pain, Headaches, Maximum adult dose of acetaminophen is 4000 mg from all sources in 24 hours. 2052 (Given - Provider: Shana Cooney RN) 1740 (Given - Provider: Charleen Ugalde, VALENTIN) 0405 (Given - Provider: Shana Cooney, VALENTIN)1359 (Given - Provider: Venkatesh Pearson, VALENTIN) dextrose 50 % solution 25 mL 25 mL, Intravenous, PRN, Starting on Sat01/25/25 at 1944, Until Sat01/27/25 at 2123, Low blood sugar, If FSBS less than 70 mg/dl and patient cannot take orally, Check FSBS every 15 minutes and repeat 25 mL of D50 IV push and notify physician if FSBS less than 70 mg/dL VESICANT , Insulin Calculator glucagon (GLUCAGEN) injection 1 mg(Linked Group 2) 1 mg, Intramuscular, PRN, Starting on Sat01/25/25 at 1944, Until Sat01/27/25 at 2122, Low blood sugar, If FSBS less than 70 mg/dl, patient cannot take orally and without IV access, If patient is without IV access, give Glucagon 1 mg Intramuscularly, insert IV and call physician., Insulin Calculator HYDROcodone-acetaminophen (NORCO) 5-325 mg per tablet 1 Tablet 1 Tablet, Oral, EVERY 6 HOURS PRN, Starting on Sat01/27/25 at 0733, Until Sat01/27/25 at 212, Pain Unrelieved by Oral Non-Opioid Therapy, Maximum adult dose of acetaminophen is 4000 mg from all sources in 24 hours. iopamidoL (ISOVUE-370) 370 mg iodine /mL (76 %) injection (LOW) 75 mL (COMPLETED) 75 mL, Intravenous, ONCE PRN, 1 dose, Starting on Sat01/25/25 at 1527, Until Sat01/25/25 at 1548, Radiography/Imaging, Radiology Procedure, VESICANT , CT (Contrasts) 1548 (Given - Provider: Yaquelin Lopez RT) loperamide (IMODIUM) capsule 2 mg 2 mg, Oral, 4 TIMES DAILY PRN, Starting on Sat01/27/25 at 0924, Until Sat01/27/25 at 212, Diarrhea, After each loose stool - Max 16 mg (8 caps) per 24 hours. If administering via enteral tube, empty contents of the capsules into 30 ml of water. 0942 (Given During Downtime - Provider: Venkatesh Pearson RN) morphine injection 1-2 mg (CANCELED) 1-2 mg, Intravenous, EVERY 4 HOURS PRN, 2 doses, Starting on Sat01/26/25 at 0939, Until Sat01/27/25 at 0733, Pain Unrelieved by Oral Opioid Therapy, Breakthrough Pain, Pain 1012 (Given - Provider: Charleen Ugalde RN) morphine injection 1-2 mg 1-2 mg, Intravenous, ONCE PRN, 1 dose, Starting on Sat01/27/25 at 0736, Until Sat01/27/25 at 1936, Pain Unrelieved by Oral Opioid Therapy, Breakthrough Pain, Pain sodium chloride 0.9% IV line flush 50 mL 50 mL, Intravenous, at 150-600 mL/hr, PRN, Starting on Sat01/25/25 at 1419, Until Sat01/27/25 at 2123, Line Care, Flush with a minimum of 20 mL after IVPB to insure complete administration of the dose. May use the saline infusion to back flush IVPB tubing as needed., Use this order to document priming and flushing IV line after medication administration. sodium chloride 0.9% syringe 10 mL (COMPLETED) 10 mL, Intravenous, ONCE PRN, 1 dose, Starting on Sat01/25/25 at 1527, Until Sat01/25/25 at 1548, Line Care, Flush peripheral lines every 12 hours, central lines every 8 hours, and after IV medication, CT (Contrasts) 1548 (Given - Provider: RT Brooke) sodium chloride 0.9% syringe 5 mL 5 mL, Intravenous, PRN, Starting on Sat01/25/25 at 1419, Until Sat01/27/25 at 212, Line Care, Flush with 5 mL saline pre/post IVP, and 5 mL prior to IVPB or blood product administration. Protocol for PERIPHERAL IV saline lock maintenance, flush with 3-5 mL saline syringe every 8 hours., Flush peripheral lines every 12 hours, central lines every 8 hours, and after IV medication sodium chloride 0.9% syringe (CANCELED) Intravenous, PRN, Starting on Sat01/26/25 at 1429, Until Sat01/26/25 at 1430, Line Care, Flush with 5-10 mL saline pre/post IVP, and 5 mL prior to IVPB or blood product administration., Stress Meds 1416 (Given - Provider: Kayce Singleton, VALENTIN) sterile water injection 1 mL(Linked Group 2) 1 mL, Injection, PRN, Starting on Sat01/25/25 at 1944, Until Sat01/27/25 at 2123, Use for drug dilution, Use to dilute and administer glucagon injection, Insulin Calculator [id number] (MYOVIEW) injection 8-45 millicurie (COMPLETED) 8-45 millicurie, Intravenous, ONCE PRN, 1 dose, Starting on Sat01/26/25 at 1339, Until Sat01/26/25 at 1419, Radiography/Imaging, Radiology Procedure, Administration dose must be within 10% of the ordered dose for radiopharmaceutical medications., Radiology 1419 (Given - Provider: Maureen Olvera, PHOTOGRAPHIC PLATEMAKER) [id number] (MYOVIEW) injection 8-45 millicurie (COMPLETED) 8-45 millicurie, Intravenous, ONCE PRN, 1 dose, Starting on Sat01/26/25 at 1339, Until Sat01/26/25 at 1335, Radiography/Imaging, Radiology Procedure, Administration dose must be within 10% of the ordered dose for radiopharmaceutical medications., Radiology 1335 (Given - Provider: Susan Nova, PHOTOGRAPHIC PLATEMAKER) tiZANidine (ZANAFLEX) tablet 4 mg (CANCELED) 4 mg, Oral, EVERY 8 HOURS PRN, Starting on Sat01/26/25 at 0911, Until Sat01/27/25 at 0733, Muscle spasms 1116 (Given - Provider: Charleen Ugalde, VALENTIN)2025 (Given - Provider: Shana Cooney, VALENTIN) 0405 (Given - Provider: Shana Cooney, VALENTIN) Linked Groups Order Group 1: Insulin Calculator - FSBS (Correction Only) InputJump to med MISCELLANEOUS, 4 TIMES DAILY AT MEALTIME AND BEDTIME, First dose on Sat01/25/25 at 2115, Until Discontinued, Blood Glucose Target - Daytime (mg/dL): 140, Blood Glucose Target - Nighttime (mg/dL): 180, Hyperglycemia Correction Factor: 50, Insulin Calculator And insulin aspart U-100 (NovoLOG) injection 0-40 UnitsJump to med 0-40 Units, Subcutaneous, 4 TIMES DAILY AT MEALTIME AND BEDTIME, First dose on Sat01/25/25 at 2115, Until Discontinued, PO Diet: Obtain FSBS before patient begins eating. Administer this dose, which only provides correctional insulin, immediately after FSBS. If patient is NPO or declines meal tray, continue with calculated correction insulin dose. Tube Feeds and TPN: Obtain FSBS and administer this dose, which only provides correctional insulin, immediately after FSBS. Notify physician if FSBS less than 50 or greater than 350. Correction insulin doses must be by at least 3 hours. Waste Sort Code = BLACK [employer] Hazardous Waste Container, Blood Glucose Target - Daytime (mg/dL): 140, Blood Glucose Target - Nighttime (mg/dL): 180, Hyperglycemia Correction Factor: 50, Insulin Calculator Group 2: glucagon (GLUCAGEN) injection 1 mgJump to med 1 mg, Intramuscular, PRN, Starting on Sat01/25/25 at 1944, Until Sat01/27/25 at 2122, Low blood sugar, If FSBS less than 70 mg/dl, patient cannot take orally and without IV access, If patient is without IV access, give Glucagon 1 mg Intramuscularly, insert IV and call physician., Insulin Calculator And sterile water injection 1 mLJump to med 1 mL, Injection, PRN, Starting on Sat01/25/25 at 1944, Until Sat01/27/25 at 2122, Use for drug dilution, Use to dilute and administer glucagon injection, Insulin Calculator documented in this encounter Orders Medications Ordered That Saran ht Not Have Been Administered Count Last Ordered Date First Ordered Date HYDROcodone-acetaminophen (N ORCO) 5-325 mg per tablet 1 Tablet 1 01/27/2025 morphine injection 1-2 mg 1 01/27/2025 albuterol (PROVENTIL HFA;ROXANNE TOLIN HFA) inhaler 2 Puff 2 01/26/2025 aminophylline injection 125 mg 2 01/26/2025 nitroGLYCERIN (NITROSTAT) SL tablet 0.4 mg 2 01/26/2025 regadenoson (LEXISCAN) injection 0.4 mg 1 0 01/26/2025 sodium chloride 0.9 % 250 mL IV bolus 2 sodium chloride 0.9% IV line flush 20-50 mL 2 01/26/2025 sodium chloride 0.9% syringe 1 01/26/2025 dextrose 50 % solution 25 mL 1 01/25/2025 glucagon (GLUCAGEN) injection 1 mg 1 2024 insulin aspart U-100 (NovoLO G) injection 0-40 Units 1 01/25/2025 Insulin Calculator - FSBS (C orrection Only) Input 1 01/25/2025 sodium chloride 0.9% IV line flush 50 mL 2 01/25/2025 sodium chloride 0.9% syringe 5 mL 1 025 sodium chloride 0.9% syringe 5-10 mL 1 12/29 sterile water injection 1 mL 1 01/25/2025 Nursing Count Last Ordered Date First Orde red Date CARDIAC MONITORING 1 01/25/2025 NURSING COMMUNICATION 1 01/25/2025 Consult Count Last Ordered Date First Orde red Date IP CONSULT TO CARDIOLOGY 1 01/26/2025 IP CONSULT TO NUTRITION 1 01/26/2025 IV Count Last Ordered Date First Orde red Date SALINE LOCK IV 2 01/25/2025 Admission Count Last Ordered Date First Orde red Date ADMIT 1 01/25/2025 Discharge Count Last Ordered Date First Orde red Date DISCHARGE PATIENT 1 01/27/2025 documented in this encounter Additional Health Concerns Assessment Noted Time A fall risk assessment has been complete d for the patient 01/06/2020 8:02 AM EDT documented as of this encounter Care Teams Dual Hose Cementer Relationship Specialty Start Date End Date Fadi Christy MD [address] [place] [id number] PCP - General Family Medicine 09/06/14 documented as of this encounter
[2025-02-01 20:28] LABS: Hematocrit 35.6 % (37.0-47.0); Hemoglobin 11.8 g/dL (12.2-16.2); Immature Granulocytes % 0.2 %; Mean Corpuscular HGB Conc 33.1 g/dL (31.8-35.4); Mean Corpuscular Hemoglobin 32.6 pg (27.0-31.2); Mean Corpuscular Volume 98.3 fl (81-99); Nucleated Red Blood Cells % 0 %; Platelet Count 275 K/mm3 (142-424); Red Blood Count 3.62 M/mm3 (4.20-5.40); Red Cell Distribution Width-SD 52.0 fL; White Blood Count 5.2 K/mm3 (4.8-10.8)
[2025-02-01 20:59] LABS: Alanine Aminotransferase 17 U/L (12-78); Albumin Level 3.9 g/dl (3.5-5.0); Albumin/Globulin Ratio 1.9 (1.1-1.8); Alkaline Phosphatase 94 U/L (38-126); Anion Gap 12.8 mEq/L (5-15); Aspartate Amino Transferase 25 U/L (14-36); Bilirubin,Total 1.0 mg/dl (0.2-1.3); Blood Urea Nitrogen 15 mg/dl (7-17); Calcium 10.2 mg/dl (8.4-10.2); Carbon Dioxide 27 mmol/L (22.0-30.0); Chloride 102 mmol/L (98-107); Creatinine,Serum 0.60 mg/dl (0.52-1.04); Estimated Glomerular Filt Rate 95 ml/min (>60); GFR (African American) 115 ML/MIN (>60); Globulin 2.1 g/dL (1.3-3.2); Glucose 129 mg/dl (74-100); Potassium 3.8 mmoL/L (3.5-5.1); Sodium 138 mmol/L (136-145); Total Protein,Serum 6.0 g/dl (6.3-8.2)
[2025-02-01 21:07] LABS: NT Pro Brain Natriuretic Pep. 1340 pg/mL (0-450)
--- OUTSIDE RECORDS SUMMARY | 2025-02-02 01:25 | XMS_ITS | Clinical Summary ---
Author Organization [facility] Address [address] [place] [phone] Phone Care Team Providers Care Pastry Cook Helper Name Role Phone Fadi Christy MD Primary Care Provider [phone] Allergies Active Allergy Reactions Criticality Noted Date Comments Amoxicillin (Bulk) Other (See Comments) Low Makes me loopy Codeine Other (See Comments) Low Makes me loopy/crazy Medications ascorbic acid, vitamin C, (VITAMIN C) 1,000 mg Oral Tablet Take 1,000 mg by mouth daily. Active aspirin 81 mg Oral Tablet, Chewable Take 1 Tab by mouth daily. 016 Active Cholecalciferol, Vitamin D3, 125 mcg (5,000 unit) Oral Tablet Take 5,000 Units by mouth daily. Active acetaminophen (TYLENOL) 500 mg Oral Tablet Take 1,000 mg by mouth 2 times daily as needed for Pain. Active MULTIVITAMIN ORAL Take 1 Tablet by mouth daily. Active artificial tear (TEARS) Opht Drops Place 1 Drop into both eyes daily. Active famotidine (PEPCID) 20 mg Oral Tablet Take 20 mg by mouth daily. Active metFORMIN (GLUCOPHAGE) 500 mg Oral Tablet Take 1 Tab by mouth daily. 020 Active sertraline (ZOLOFT) 50 mg Oral Tablet Take 50 mg by mouth daily. 021 Active amLODIPine (NORVASC) 2.5 mg Oral Tablet Take 1 Tablet by mouth daily. 90 Tablet 3 025 Active apixaban (ELIQUIS) 5 mg Oral Tablet Take 1 Tablet by mouth 2 times daily. 180 Tablet 3 025 Active fUROsemide (LASIX) 20 mg Oral Tablet Take 1 Tablet by mouth every other day. 45 Tablet 3 025 Active Additional Information Patient taking differently:20 mg OralDAILY, Reason: Other (swelling), Informant: Self/Patient, Reported on 01/25/2025 lisinopriL (PRINIVIL;ZESTRIL) 10 mg Oral Tablet Take 1 Tablet by mouth 2 times daily. 180 Tablet 3 025 Active simvastatin (ZOCOR) 10 mg Oral TabletIndications:ASHD (arteriosclerotic heart disease),Essential hypertension,Pure hypercholesterolemia Take 1 Tablet by mouth nightly. 90 Tablet 3 025 Active amoxicillin-clavulanate (AUGMENTIN) 875-125 mg Oral Tablet Take 875 mg by mouth 2 times daily. Active meclizine (ANTIVERT) 25 mg Oral Tablet 25 mg 3 times daily. 023 2024 Disconti nued(DEL ETE-Ther apy complete d) isosorbide mononitrate (IMDUR) 30 mg Oral Tablet Sustained Release 24 hr Take 1 Tablet by mouth every morning. 30 Tablet 11 024 2024 Disconti nued(DEL ETE-Ther apy complete d) Active Problems Problem Noted Date Diagnosed Date Hypokalemia 01/27/2025 Assessment & Plan (01/27/2025 7:26 AM EDT): Give supplement. Recheck K level Mg level check if not responding Improved 01/26/25 after tx Mixed hyperlipidemia 01/26/2025 Assessment & Plan (01/27/2025 7:26 AM EDT): Home statin. Last lipids appropriate Assessment & Plan (01/26/2025 9:45 AM EDT): Home statin. Last lipids appropriate Acute left-sided low back pain without sciatica 01/26/2025 Assessment & Plan (01/27/2025 7:26 AM EDT): Tizanidine PRN Assessment & Plan (01/26/2025 9:45 AM EDT): Tizanidine PRN Permanent atrial fibrillation 01/26/2025 Assessment & Plan (01/27/2025 7:26 AM EDT): Eliqulonny. 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 10/31/2015 Assessment & Plan (01/27/2025 7:26 AM EDT): ricky Pyle Assessment & Plan (01/26/2025 9:45 AM EDT): ricky Pyle Type 2 diabetes mellitus with complication 10/30 Assessment & Plan (01/27/2025 7:26 AM EDT): SSI novolog Assessment & Plan (01/26/2025 9:45 AM EDT): SSI novolog DDD (degenerative disc disease) Diverticulosis Essential hypertension Assessment & Plan (01/27/2025 7:26 AM EDT): Lisinopril, Amlodipine Assessment & Plan (01/26/2025 9:45 AM EDT): Lisinopril, Amlodipine Resolved Problems Problem Noted Date Diagnosed Date Resolved Date Unstable angina 07/10/2020 08/26/2020 Chest pain 07/08/2020 08/26/2020 LOC (loss of consciousness) 08/25/2018 01/26/2025 Essential hypertension 11/25/201511/24 HTN (hypertension) 6 Encounters Date Type Department Care Team Description 01/25/2025 2:36 PM EDT - 01/27/2025 5:23 PM EDT Hospital Encounter EDG 2A OBSERVATION UNIT [facility] [place] [address] Jose Calabrese MD Patel, Jigar D, MD Acute chest pain (Primary Dx); Lightheadedness Discharge Disposition: Home or Self Care 01/25/2025 Travel 01/25/2025 Telephone [facility] [email or web address] [address] Lane Lo MD Hospital Follow Up (Pt asking for an appt with [facility] [place] next week for hospital fu., nothing available for me to schedule) 12/21/2024 10:30 AM EDT Office Visit [facility] [place] [id number] Megha Wilder PA ASHD (arteriosclerotic heart disease) (Primary Dx); Essential hypertension; Pure hypercholesterolemia ; Chronic atrial fibrillation (HCC); Chronic heart failure with preserved ejection fraction (HCC) 11/02/2024 Telephone [facility] [address] [address] [address] Lo MD Reschedule from Last 3 [...] and heating? Not hard at all 01/26/2025 [facility] - Occupational Stress Questionnaire Answer Date [...] money to get more. Never true 01/26/2025 [facility] Utilities Answer Date Recorded In the past 12 months has th e electric, gas, oil, or water company threatened to shut off services in your home? No 01/26/2025 [facility] IP Transportation Answer D ate Recorded In [...] Mass Index 32.71 01/25/2025 6:53 PM EDT Plan of Treatment Upcoming Encounters Date Type Department Care Team (Late st Contact Info) Description 02/03/2025 10:00 AM EDT Office Visit [facility] [address] [phone] Megha Wilder PA [address] [place] [address] [place] [address] 07/12/2025 10:00 AM EDT Office Visit [facility] [address] [address] [address] Lo MD [address] [place] [address] [place] [address] Health Maintenance Due Date Last Done Comments Wellness Exam Medicare 1943 Diabetic Eye Exam 1956 DTaP/TDaP/Td (1 - Tdap) 1957 Kidney Health: uACR 07/09/2021 07/09/2020, 9 COVID-19 Vaccine ( season) 2024 02/05/2024, 07/05/2022, 01/31/2022, Additional history exists Influenza Vaccine (#1) 2024 , 01/17/2023, 02/15/2021, Additional history exists Hemoglobin A1c 01/17/2025 07/17/2024, 11/3 , 08/22/2020, Additional history exists Lipids 07/17/2025 07/17/2024, 11/0 09/2022, 07/09/2020, Additional history exists Kidney Health: eGFR 01/27/2026 01/27/2025, 01/26/2025, 01/25/2025, Additional history exists Bone Density Screening Completed 02/23/2015 Pneumococcal Vaccine 50+ Completed 09/28/2022, 03/29 RSV or 60+ Completed 01/26/2023 Zoster Completed 07/13/2024, 10/28, 04/08/2009 Hepatitis B Vaccine Aged Out No longe r eligible based on patient's age to complete this topic Meningococcal B Vaccine Aged Out No l onger eligible based on patient's age to complete this topic Medical Devices Implanted Type Area Medical Scientist Device Identifier Shelf Expiration Date Model / Serial / Lot Stent Xience Alpine Drug Eluting 3.0mm X 12mm - [id number] Implanted:Qty : 1 on 10/30/[address] Lo MD at [facility] N/A: [employer] [facility]:VASC DEV [id number] Procedures Procedure Name Priority Date/Time Associated Diagnosis [...] Chang 0 PCP: Fadi Christy MD Primary Secured Entrance Monitor: Wally I would like to thank El Gregorio MD for requesting me to see [...] which [facility]was [facility]. At that timeshe was told [...] melena. 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 -DECK SCALER on no ASA with need for eliquis HFpEF -echo from 08/2023 with EF55-60%, LV wall motion nml, LV davey fx nml. RVsys fx nml -DECK SCALER on TI asix 20 every other day -appears euvolemic on exam. Leg swelling seems more chronic chronic afib -rate is controlled -DECK SCALER on no meds for rate control -CHADs Vasc 5 -DECK SCALER On eliquis HTN -BP is mildly elevated 130-160 sys HLD -LDL 54 from 06/2024 -DECK SCALER on simvastatin 10 DM -HgbAIC 6.3 from 06/2024 -per attending Plan: Consider stress and echo. Further input from Dr. Brayan Flores, [facility] Disposition Perspective - Medically Ready for Discharge: No Anticipated Discharge: today or tomorrow Discharge when / if: pending decision on ischemic eval Attending Secured Entrance Monitor Attestation: I have seen and examined the [...] with chest pain. On my initial assessment shereports not really chest discomfort but jaw discomfort. She reports theday prior she was at [facility] and diagnosed with PNA, PEand diverticulitis. [...] PCI OM 2015. Nuclear stress09/2023 without ischemia. LHC 06/2020 with normal coronaries. TTE 08/2023with LVEF [...] no chest pain but some jaw pain. Shereports this is not similar to her prior cardiac pain but troponins mildlyelevated. Not in ACS pattern, probably demand ischemia. Edema on exam,otherwise euvolemic. Plan: - Nuclear stress test. - Echocardiogram. - If nuclear stress and echo okay, can go home from cardiac perspective. Please call with any questions. Alex Schmidt MD [facility] V[facility] [1] Family History Problem [...] 3:53 PM EDT XR CHEST AP PORTABLE JOCELYNE 01/25/2025 3:23 PM EDT TROPONIN-T HIGH SENSITIVITY BASELINE W/ REFLEX STAT 01/25/2025 2:57 PM EDT BASIC METABOLIC PANEL STAT 01/25/2025 2:57 PM EDT CBC STAT 01/25/2025 2:57 PM EDT SALINE LOCK IV STAT 01/25/2025 2:48 PM EDT EK EKG 12 LEAD STAT 01/25/2025 2:20 PM EDT SALINE LOCK IV STAT 01/25/2025 2:20 PM EDT LIPID SCREEN Routine 07/17/2024 9:29 AM EDT ASHD (arteriosclerotic heart disease) Essential hypertension Paroxysmal A-fib (HCC) Pure hypercholesterolemia HEMOGLOBIN A1C Routine 07/17/2024 9:29 AM EDT ASHD (arteriosclerotic heart disease) Essential hypertension Paroxysmal A-fib (HCC) Pure hypercholesterolemia Abnormal finding of blood chemistry, unspecified MICROALBUMIN/CREA TININE RATIO URINE Routine 07/09/2020 1:55 AM EST DX BONE DENSITY AXIAL SKELETON Routine 02/23/2015 8:05 AM EDT Osteoporosis from Last 3 Months or Most Recently Relevant to Health Maintenance Results * SCANNED EKG (01/28/2025 1:27 PM EDT) Anatomical Region Laterality Modality Other 01/28/2025 1:27 PM EDT us Unknown Provider IMG ECG ORDERABLES Final Result * (ABNORMAL) GLUCOSE METER POC (01/27/2025 1:37 PM EDT) Only the most recent of7 resultswithin the time period is included. Glucose Meter POC 112(H) 70 - 100 mg/dL 01/27/2025 1:39 PM EDT [facility] Sample Type Capillary 01/27/2025 1:39 PM EDT [facility] Patient Status Non-Critical Patient 01/27/2025 1:39 PM EDT [facility] Blood BLOOD SPECIMEN / Unknown 01/27/2025 1:37 PM EDT 01/27/2025 1:39 PM EDT us El Gregorio MD POINT OF CARE TEST ORDERABLES F inal Result [facility] [address] [place] [id number] * EC ECHOCARDIOGRAM COMPLETE W DOPPLER AND COLOR FLOW MAPPING (01/27/2025 12:54 PM EDT) LV DIASTOLIC PLAX 4.18 cm PYRAMIS Ejection [...] regurgitation with a PISA ERO of0.22 cm2. Theo Flores TILE MOLDER IMG ECHO ORDERABLES Final R esult * (ABNORMAL) BASIC METABOLIC PANEL (01/27/2025 8:11 AM EDT) Only the most recent of3 resultswithin the time period is included. Sodium 138 136 - 145 mmol/L 01/27/2025 [...] - 99 mg/dL 01/27/2025 8:42 AM EDT [facility] BUN 13 8 - 23 mg/dL 01/27/2025 8:42 AM EDT [facility] Creatinine 0.58 0.51 - 1.30 mg/dL 01/27/2025 8:42 AM EDT [facility] eGFR (CKD-EPIcr 2020) 88 >=60 mL/min/1.7 3 m2 01/27/2025 8:42 AM EDT [facility] Comment:Estimated GFR was ca lculated using the CKD-EPIcr (2020) equation refit without race. The equation is recommended by the National Kidney Foundation - [place] [employer] of Nephrology Task Force. Blood VENOUS BLOOD / Unknown Venipuncture / Unknown 01/27/2025 8:11 AM EDT 01/27/2025 8:14 AM EDT us Kan Longoria MD CHEMISTRY ORDERABLES Final Re sult Performing Organization Address City/[facility]/ZIP Co de Phone Number [address], [place] [address] * ECG AND WAVEFORMS - TELEMETRY (01/27/2025 7:18 AM EDT) Only the most recent of6 resultswithin the time period is included. ECG INTERPRET Atrial Fib [facility] 01/27/2025 7:18 AM EDT Narrative [facility] - 01/27/2025 7:20 AM EDT ROUTINE/REPAIRER TYPEWRITER QRS 0.10 See Clinical Report link for waveform capture us Unknown Provider POINT OF CARE CARDIOLOGY Final Result [facility] [address] [place] [address] * EK EKG 12 LEAD (01/27/2025 5:04 AM EDT) Only the most recent of2 resultswithin the time period is included. Anatomical Region Laterality Modality Electrocardiogra phy 01/27/2025 5:09 AM EDT Impressions 01/27/2025 6:[address] [facility] Test Date: 2025-01-27 Pat Name: PENNY CHANG Department: DEPID Room: 2105 Gender: Female Hat Lining Paster: Catherine : 1940 Requested By: EL Mukherjee Order Number: [id number] Reading MD: Alex Schmidt Measurements Intervals [place] Rate: 61 P: 0 UT: 0 QRS: 15 QRSD: 91 T: 48 QT: 395 QTc: 398 Interpretive Statements ATRIAL FIBRILLATION ABNORMAL RHYTHM ECG Electronically Signed On 01-27-2025 06:32:42 EDT by Alex Schmidt Narrative Procedure Note Alex Schmidt MD - 01/27/[address] [facility] Test Date: 2025-01-27 Pat Name[facility]ENNY CHANG [facility] Gender: Female Hat Lining Paster: Catherine : 1940 Requested By: EL Mukherjee Order Number: [id number] Reading MD: Alex Schmidt Measurements Intervals [place] Rate: 61 P: 0 UT: 0 QRS: 15 QRSD: 91 T: 48 QT: 395 QTc: 398 Interpretive Statements ATRIAL FIBRILLATION ABNORMAL RHYTHM ECG Electronically Signed On 01-27-2025 06:32:42 EDT by Alex Schmidt us El Gregorio MD IMG ECG ORDERABLES Final Result * NM MYOCARDIAL PERFUSION SPECT STRESS AND [...] and normal left ventricular systolic function. us Theo Flores TILE MOLDER IMG NM CARDIAC ORDERABLES F inal Result * ST STRESS TEST LEXISCAN (01/26/2025 2:28 PM EDT) Anatomical Region Laterality Modality Cardiac Stress T esting 01/26/2025 2:08 PM EDT Impressions 01/26/2025 3:[address] [facility] Test Date: 2025-01-26 Pat Name: PENNY CHANG Department: [facility] Room: Gender: Female Hat Lining Paster: KAYCE Gibbons RN : 1940 Requested By: THEO FLORES Order Number: [id number] Reading MD: America Michaels Interpretive Statements Stress [...] CHANG Department: [facility] Room: 2105 Gender: Female Hat Lining Paster: KAYCE Gibbons RN : 1940 Requested By: THEO FLORES Order Number: [id number] Reading MD: America Michaels Interpretive Statements Stress [...] On 01-26-2025 15:12:17 EDT by America Michaels Theo Flores TILE MOLDER IMG STRESS ORDERABLES Final Result * MAGNESIUM LEVEL (01/26/2025 10:29 AM EDT) [facility] Magnesium 1.7 1.6 - 2.4 mg/dL 01/26/2025 10:53 AM EDT [facility] Blood VENOUS BLOOD / Unknown Venipuncture / Unknown 01/26/2025 10:29 AM EDT 01/26/2025 10:34 AM EDT Kan Longoria MD CHEMISTRY ORDERABLES Final Re sult [facility] [address] [place] [address] * (ABNORMAL) TROPONIN-T HIGH SENSITIVITY 2HR (01/25/2025 4:38 PM EDT) Pathologist [facility] sp-lYgapibdv-P 2HR 16(H) <14 ng/L 01/25/2025 4:59 PM EDT [facility] hs-cTnT 2Hr Delta from Baseline -1 <4 ng/L 01/25/2025 4:59 PM EDT [facility] Blood VENOUS BLOOD / Unknown Venipuncture / Unknown 01/25/2025 4:38 PM EDT 01/25/2025 4:39 PM EDT Narrative [facility] - 01/25/2025 4:59 PM EDT Ingestion of joshua doses of biotin (>5 mg/day) taken within 8 hours of drawing blood sample can interfere with this immunoassay test. us Jose Calabrese MD CHEMISTRY ORDERABLES Final Resu lt [facility] [address] [place] [id number] * CT ANGIOGRAM CHEST ABDOMEN PELVIS W [...] please contactthe office of the ordering clinician. Jose Calabrese MD IMG CT ORDERABLES Final Result * XR CHEST [...] please contactthe office of the ordering clinician. Jose Calabrese MD IMG DIAGNOSTIC IMAGING ORDERABL ES Final Result * (ABNORMAL) TROPONIN-T HIGH SENSITIVITY BASELINE W/ REFLEX (01/25/2025 2:57 PM EDT) Pathologist [facility] ln-fCqkgbuzt-D 17(H) <14 ng/L 01/25/2025 3:21 PM EDT [facility] Blood VENOUS BLOOD / Unknown Venipuncture / Unknown 01/25/2025 2:57 PM EDT 01/25/2025 3:01 PM EDT Narrative [facility] - 01/25/2025 3:21 PM EDT Ingestion of joshua doses of biotin (>5 mg/day) taken within 8 hours of drawing blood sample can interfere with this immunoassay test. Jose Calabrese MD CHEMISTRY ORDERABLES Final Resu lt [facility] [address] [place] [address] * (ABNORMAL) CBC (01/25/2025 2:57 PM EDT) Pathologist [facility] WBC 5.0 3.7 - 10.3 x10(3)/mcL 01/25/2025 3:04 PM EDT [facility] RBC 3.77(L) 3.90 - 5.20 x10(6)/mcL 01/25/2025 3:04 PM EDT [facility] Hgb 11.8 11.2 - 15.7 g/dL 01/25/2025 3:04 PM EDT [facility] Hct 36.0 34.0 - 45.0 % 01/25/2025 3:04 PM EDT [facility] MCV 95.5 80.0 - 100.0 fL 01/25/2025 3:04 PM EDT [facility] MCH 31.3 26.0 - 34.0 pg 01/25/2025 3:04 PM EDT [facility] MCHC 32.8 30.7 - 35.5 g/dL 01/25/2025 3:04 PM EDT [facility] RDW 14.6 <=14.9 % 01/25/2025 3:04 PM EDT [facility] Platelet 253 155 - 369 x10(3)/mcL 01/25/2025 3:04 PM EDT [facility] MPV 9.4 8.8 - 12.5 fL 01/25/2025 3:04 PM EDT [facility] Blood VENOUS BLOOD / Unknown Venipuncture / Unknown 01/25/2025 2:57 PM EDT 01/25/2025 3:01 PM EDT us Jose Calabrese MD HEMATOLOGY ORDERABLES Final Res ult [facility] [address] [place], [place] [id number] * (ABNORMAL) HEMOGLOBIN A1C (07/17/2024 9:29 AM EDT) Hgb A1C 6.3(H) 4.2 - 5.6 % 07/17/2024 4:32 PM EDT [facility] [employer], [facility] Est. Avg Glucose 134 mg/dL 07/17/2024 4:32 PM EDT [facility] Blood VENOUS BLOOD / Unknown Venipuncture / Unknown 07/17/2024 9:29 AM EDT 07/17/2024 9:29 AM EDT Narrative [facility] - 07/17/2024 4:32 PM EDT REFERENCE RANGE: Normal: 4.0-5.6% Pre-diabetes: 5.7-6.4% Provisional diagnosis of diabetes: >6.4% Hgb F>10% and anything which shortens red cell survival, such as hemolytic anemia, or unstable hemoglobin variants such as HbSS, HbSC, or HbCC, will lower the HbA1c value associated with a given level of glycemic control. us Lane Lo MD CHEMISTRY ORDERABLES Final R esult [facility] [address] [facility] , [place] [address] [facility] [address] [place] [address] * LIPID SCREEN (07/17/2024 9:29 AM EDT) [facility] Cholesterol 142 <200 mg/dL 07/17/2024 3:40 PM EDT [facility] Comment: < 200 Desirable 200 - 239 Borderline High >= 240 High Triglyceride 102 <150 mg/dL 07/17/2024 3:40 PM EDT [facility] Comment: < 150 Normal 150 - 199 Borderline High 200 - 499 High >= 500 Very High HDL 70 >=40 mg/dL 07/17/2024 3:40 PM EDT [facility] [employer] Comment: > 60 Optimal 40 - 60 Acceptable < 40 Low LDL Calculated 54 <100 mg/dL 07/17/2024 3:40 PM EDT [facility] [employer] [facility] Comment: < 100 Optimal 100 - 129 Near or above optimal 130 - 159 Borderline High 160 - 189 High >= 190 Very High The National Institutes of Health (NIH) equation is used for all lipid panels that report calculated LDL (LDL-C). Non-HDL-C Calculated 72 <=129 mg/dL 07/17/2024 3:40 PM EDT [facility] Comment: <130 Desirable 130-159 Above Desirable 160-189 Borderline High 190-219 High >= 220 Very High Fasting Specimen? Yes None 025 3:40 PM EDT [facility] Blood VENOUS BLOOD / Unknown Venipuncture / Unknown 07/17/2024 9:29 AM EDT 07/17/2024 9:[address] Lo MD CHEMISTRY ORDERABLES Final R esult Performing Organization Address [facility] de Phone Number [employer] [address] , [place] [address] [facility] [address] [place] [address] * MICROALBUMIN/CREATININE RATIO URINE (07/09/2020 1:55 AM EST) Pathologist [facility] Urine Microalb <12.0 mg/L 07/09/2020 2:41 AM EST [facility] [employer], [facility] Urine Creatinine 50.3 mg/dL 07/10/19 21 2:41 AM EST [employer] [facility] Ur Microalb/Creat 021 2:41 AM EST [employer] [facility] Comment: Because the albumin level is below the level of detection in this urine specimen, the laboratory is unable to calculate a reliable albumin/creatinine ratio. Microalbuminuria is unlikely if the urine albumin concentration is less than 20- 30 mg/L in a random specimen. Urine STRUCTURE OF URINARY TRACT PROPER / Unknown 07/09/2020 1:55 AM EST 07/09/2020 2:01 AM EST us Melvin Stiles MD URINE ORDERABLES Final Result Performing Organization Address [facility] de Phone Number [employer] [facility] [address] [facility] , [address] [place] [phone] * DX BONE DENSITY AXIAL SKELETON (02/23/2015 8:05 AM EDT) Anatomical Region Laterality Modality Dexa Scan 02/23/2015 Narrative 02/25/2015 10:36 AM EDT Indication: The patient is a post-menopausal female over age 65 with clinical risk factors for an osteoporotic fracture that requires a bone density assessment. Study was performed on [employer]. Bone Density: Region BMD T-score Z-score Femoral [...] and scoliosis. Reported by: Odalys Hawkins PA-C, MMS, CCD on 02/23/2015 12:19:00 PM. Venkatesh Frazier MD IMG DEXA ORDERABLES Fin al Result from Last 3 Months or Most Recently Relevant to Health Maintenance Insurance [employer] MEDICARE PPO MR [employer] MEDICARE PPO MR Advance Directives For more information, please contact: [phone] * Full Code (Latest Code Status on File) Date Activated Date Inactivated Comments 01/26/2025 5:52 AM 01/27/2025 9:23 PM * Full Code Date Activated Date Inactivated Comments 07/08/2020 6:16 [...] 9:01 AM 11/01/2015 4:32 PM Care Teams Pastry Cook Helper Relationship Specialty Start Date End Date Fadi Christy MD [address] [place] [address] [place] [id number] PCP - General Family Medicine 09/06/14
--- OUTSIDE RECORDS SUMMARY | 2025-02-02 01:25 | XMS_ITS | Encounter Summary ---
Author Organization [facility] [place] [address] Care Team Providers Care Bottom Saw Operator Name Role Phone Fadi Christy MD Primary Care Provider [phone] Encounter Details Date Type Department Care Team (Latest Contact Info) Description 01/25/2025 Travel Social History Tobacco Use Types Packs/Day Years [...] and heating? Not hard at all 01/26/2025 [facility] [place] [facility] - Occupational Stress [...] money to get more. Never true 01/26/2025 [facility] Utilities Answer Date Recorded In the past 12 months has th e Mem[employer], gas, oil, or water [employer] threatened to shut off services in your home? No 01/26/2025 [facility] IP Transportation Answer D ate Recorded In [...] as of this encounter Functional Status * Alcohol Screening Score Answer Date of Assessment Author 0 01/25/2025 6:59 PM PARESHT Brett Ugalde RN * Drug Screening Score Answer Date of Assessment Author 0 01/25/2025 6:59 PM PARESHT Brett Ugalde RN * Question Answer Date of Assessment Author How often do you have a drin k containing alcohol? 0 01/25/2025 6:59 PM PARESHT Charleen Ugalde R N How many drinks containing a lcohol do you have on a typical day when you are drinking? 0 01/25/2025 6:59 PM EDT Charleen Ugalde R N How often do you have six or more drinks on one occasion? 0 01/25/2025 6:59 PM PARESHT Atilio Ugalde RN AUDIT-C to Determine Rows 4-10 0 01/25/2025 6:59 PM PARESHT Charleen Ugalde RN * Is the person [...] 11:42 AM EDT Shena Qiu RN * Suicide Severity Rating Answer Date of Assessment Author No Risk 01/25/2025 6:59 PM EDT Brett Ugalde RN * [place] Suicide Severity Rating Scale (Q shift for [...] Shena Qiu RN documented in this encounter Plan of Treatment Upcoming Encounters Date Type Department Care Team (Late st Contact Info) Description 02/03/2025 10:00 AM EDT Office Visit [facility] [address] [phone] Megha Wilder PA [address] [place] [address] [place] [address] 07/12/2025 10:00 AM EDT Office Visit [facility] [address] [place] [phone] [address] Lo MD [address] [place] [address] DR [facility] [place] [address] documented as of this encounter Visit Diagnoses Not on filedocumented in this encounter Additional Health Concerns Assessment Noted Time A fall risk assessment has been complete d for the patient 01/06/2020 8:02 AM EDT documented as of this encounter Care Teams Bottom Saw Operator Relationship Specialty Start Date End Date Fadi Christy MD [address] [place] [id number] PCP - General Family Medicine 09/06/14 documented as of this encounter
--- OUTSIDE RECORDS SUMMARY | 2025-02-02 01:25 | XMS_ITS | Encounter Summary ---
Author Organization [place] [address] Care Team Providers Care Solar Energy Systems Engineer Name Role Phone Fadi Christy MD Primary Care Provider [phone] Reason for Visit * Reason Onset Date Comments Hospital Follow Up 01/25/2025 Pt asking for an appt with [facility] [place] next week for hospital fu., nothing available for me to schedule Encounter Details Date Type Department Care Team (Late st Contact Info) Description 01/25/2025 Telephone [facility] [place] [address] Lane Lo MD [address] [place] [address] Hospital Follow Up (Pt asking for an appt with [facility] [place] next week for hospital fu., nothing available for me to schedule) Social History Tobacco Use Types Packs/Day Years [...] and heating? Not hard at all 01/26/2025 [facility] [place] [facility] - Occupational Stress [...] money to get more. Never true 01/26/2025 [facility] Utilities Answer Date Recorded In the past 12 months has th e electric, gas, oil, or water company threatened to shut off services in your home? No 01/26/2025 [facility] IP Transportation Answer D ate Recorded In [...] Author 0 01/25/2025 6:59 PM EDT Brett Ugalde, VALENTIN * Question Answer Date of Assessment Author [...] one occasion? 0 01/25/2025 6:59 PM EDT tAilio Ugalde RN AUDIT-C to Determine Rows 4-10 [...] of Assessment Author No 11/08/2015 11:42 AM Shena Lou RN * Does this person have serious difficulty walking or climbing stairs? Answer Date of Assessment Author No 11/08/2015 11:42 AM Shena Lou RN * Does this person have difficulty dressing or bathing? Answer Date of Assessment Author No 11/08/2015 11:42 AM Shena Lou RN * Because of a physical, mental or emotional condition, does this person have difficulty doing errands alone such as visiting a doctor's office or shopping? Answer Date of Assessment Author No 11/08/2015 11:42 AM Shena Lou RN * Question Answer Date of Assessment Author Little interest or pleasure in doing things 0 01/26/2025 10:10 AM Saniya Scott RN Feeling down, depressed, or hopeless 0 12/30 10:10 AM Saniya Scott RN PHQ-2 Total Score 0 01/26/2025 10:10 AM Saniya Scott RN * PHQ-9 Total Score Answer Date of Assessment Author 0 01/26/2025 10:10 AM Slime Scott RN * PHQ-2 Total Score Answer Date of Assessment Author 0 01/26/2025 10:10 AM EDSlime Maier RN * Suicide Severity Rating Answer Date of Assessment Author No Risk 01/25/2025 6:59 PM EDT Brett Ugalde RN * [place] Suicide Severity Rating Scale (Q shift for moderate and high) Question Answer Date of Assessment Author 1. In the past month, have y ou wished you were or wished you could go to sleep and not wake up? 0 01/25/2025 6:59 PM EDT We Charleen fregoso RN 2. In the past month, have [...] encounter Miscellaneous Notes * Telephone Encounter - Maura Caballero RMA - 01/28/2025 4:06 PM EDT Called patient scheduled an appointment on 02/03/25 at 10:00am in [place] office with Megha Wilder. Gave patient the address. Appointment ok to add per Zayda. * Telephone Encounter - Kell Faith RMA - 01/25/2025 10:41 AM EDT Called patient, no answer. Needs scheduled with MONICA. * Telephone Encounter - Krupa Shaw - 01/25/2025 8:18 AM EDT Reason for requesting appointment: Hospital follow up Appointment Notes: [facility] in [place], irreg hb, diverticulitis and pneumonia Appointment location: [facility] [place] Call back number: [phone] Pt asking for appt next week, she cannot come this week documented in this encounter Plan of Treatment Upcoming Encounters Date Type Department Care Team (Late st Contact Info) Description 02/03/2025 10:00 AM EDT Office Visit [facility] [address] [phone] Megha Wilder PA [address] [place] [id number] 07/12/2025 10:00 AM EDT Office Visit [facility] [address] [address] [address] Lo MD [address] [place] [address] documented as of this encounter Visit Diagnoses Not on filedocumented in this encounter Additional Health Concerns Assessment Noted Time A fall risk assessment has been complete d for the patient 01/06/2020 8:02 AM EDT documented as of this encounter Care Teams Solar Energy Systems Engineer Relationship Specialty Start Date End Date Fadi Christy MD [address] [place] [id number] PCP - General Family Medicine 09/06/14 documented as of this encounter
== END 2025-02-01 23:59 ==
LOC: LAB.DROPOF 02-02 01:23
PROVIDERS: PCP Nurse Practitioner; Visit Provider Nurse Practitioner
DX: J18.9 Pneumonia, unspecified organism (principal); I26.99 Other pulmonary embolism without acute cor pulmonale; I50.9 Heart failure, unspecified
CPT/HCPCS: 80053; 83880; 85025

== ENCOUNTER 2025-03-02 11:35 | Outpatient (CLI) | payer MEDICARE, SELFPAY ==
--- NOTE | 2025-03-02 11:37 | XR_ITS ---
FINAL REPORT CLINICAL HISTORY: Evaluation of Left Foot Pain pain since december FINDINGS: LEFT FOOT Three views of the left foot demonstrate no acute fracture or dislocation. 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 There is mild soft tissue edema. IMPRESSION: No acute bony abnormality of the left foot. Reviewed, Interpreted and Dictated by Mary Kay Horvath MD Transcribed by Denae Miller Authenticated and [facility]
== END 2025-03-02 23:59 | disposition home or self-care (01) ==
LOC: RAD 11:35
PROVIDERS: PCP Nurse Practitioner; Visit Provider Podiatrist
DX: M19.072 Primary osteoarthritis, left ankle and foot (principal); M20.12 Hallux valgus (acquired), left foot
CPT/HCPCS: 73630